=== PATIENT | female | born 1950 | race Caucasian/White ===

== ENCOUNTER 2016-02-25 10:06 | Day surgery (SDC) | payer MEDICARE ==
[2016-02-25] MEDS ORDERED: ceFAZolin 1 GM VIAL ONE (10:10)
[2016-02-25] MEDS ORDERED: LACTATED RINGERS 1,000 ML IV ONE (10:16)
[2016-02-25] MEDS ORDERED: BUPIVACAINE 0.25% PF 30 ML VIAL SUBQ ONE ×2 (11:26)
[2016-02-25] MEDS ORDERED: PROPOFOL 200 MG/20 ML VIAL IVP ONE (11:45)
[2016-02-25] MEDS ORDERED: MIDAZOLAM 2 MG/2 ML VIAL IVP ONE (11:45)
[2016-02-25] MEDS ORDERED: fentaNYL 100 MCG/2 ML VIAL IVP ONE (11:45)
[2016-02-25] MEDS ORDERED: LIDOCAINE-MPF 2% 5 ML VIAL IM ONE (11:45)
== END 2016-02-25 10:07 | disposition home or self-care (01) ==
PROC: 0LN80ZZ Release Left Hand Tendon, Open Approach (ICD-10-PCS; principal; 2016-02-25 11:15)
DX: M65.332 Trigger finger, left middle finger (principal); E66.9 Obesity, unspecified; I10 Essential (primary) hypertension; E78.5 Hyperlipidemia, unspecified; M19.90 Unspecified osteoarthritis, unspecified site; Z88.0 Allergy status to penicillin; Z88.5 Allergy status to narcotic agent; Z68.41 Body mass index [BMI] 40.0-44.9, adult; Z86.73 Personal history of transient ischemic attack (TIA), and cerebral infarction without residual deficits; Z79.82 Long term (current) use of aspirin; Z87.891 Personal history of nicotine dependence; Z68.39 Body mass index [BMI] 39.0-39.9, adult
CPT/HCPCS: 26055; J7120

== ENCOUNTER 2016-07-04 16:31 | Emergency (ER) | payer MEDICARE ==
--- NOTE | 2016-07-04 18:13 | ED Physician Documentation ---
PD HPI ABD PAIN - Stated complaint Stated Complaint: ABD PAIN/VOMITTING - Chief complaint Chief Complaint: Abd Pain - History obtained from History obtained from: Patient - History of Present Illness Timing - onset: Last night Timing - duration: Hours (12-15) Timing - details: Gradual onset, Still present, Waxing and waning Quality: Cramping, Aching, Pain Location: LLQ Radiation: No: Chest, Lower back, Left flank Improved by: No: Eating, Position Worsened by: Palpation. No: Eating, Breathing, Position Associated symptoms: Nausea, Loss of appetite. No: Fever, Vomiting, Diarrhea, Constipation, Melena, Dysuria, Near syncope / syncope Similar symptoms before: Has not had sx before Recently seen: Not recently seen Review of Systems Constitutional: denies: Fever, Chills, Myalgias Nose: denies: Rhinorrhea / runny nose, Congestion Throat: denies: Sore throat Cardiac: denies: Chest pain / pressure, Palpitations Respiratory: denies: Dyspnea, Cough, Wheezing GI: reports: Abdominal Pain, Nausea. denies: Abdominal Swelling, Constipation, Diarrhea : denies: Dysuria, Frequency Skin: denies: Rash, Lesions PD PAST MEDICAL HISTORY - Past Medical History Past Medical History: Yes Cardiovascular: Hypertension, High cholesterol Respiratory: None Neuro: None GI: None : Frequency Psych: Depression Musculoskeletal: Osteoarthritis - Past Surgical History Past Surgical History: Yes General: Appendectomy Ortho: Carpal Tunnel surgery - Present Medications Home Medications: Ambulatory Orders Medication Instructions Recorded Confirmed Lisinopril 5 mg PO DAILY 08/14/12 07/04/16 Lovastatin [Altoprev] 40 mg PO DAILY 08/14/12 07/04/16 Aspirin 81 mg PO DAILY 12/04/15 07/04/16 Docusate Sodium 100 mg PO DAILY #20 capsule 07/04/16 Naproxen [Naprosyn] 500 mg PO BID #15 tablet 07/04/16 Tramadol HCl 50 mg PO Q6H PRN #20 tablet 07/04/16 - Allergies Allergies/Adverse Reactions: Allergies Allergy/AdvReac Type Severity Reaction Status Date / Time morphine Allergy Intermediate Hives Verified 07/04/16 19:43 Penicillins Allergy Intermediate Rash Verified 07/04/16 19:43 hydrocodone [Hydrocodone] Allergy Mild Itching Verified 07/04/16 19:43 - Social History Does the pt smoke?: No Smoking Status: Current some day smoker Does the pt drink ETOH?: No Does the pt have substance abuse?: No - Family History Family history: reports: Non contributory - Immunizations Immunizations are current?: Yes - POLST Patient has POLST: No PD ED PE NORMAL - Vitals Vital signs reviewed: Yes - General General: Alert and oriented X 3, Well developed/nourished, Other (appears in pain, left abdomen) - HEENT HEENT: PERRL (nonicteric), Ears normal, Pharynx benign - Neck Neck: Supple, no meningeal sign, No bony TTP - Cardiac Cardiac: RRR, No murmur - Respiratory Respiratory: Clear bilaterally - Abdomen Abdomen: Soft, Non distended, No organomegaly, Other (tender with local guarding left sided mid abdomen. No percussion nor rebound tenderness. ) - Female Female : Deferred - Rectal Rectal: Deferred - Back Back: No CVA TTP - Derm Derm: Normal color, Warm and dry - Extremities Extremities: No tenderness to palpate, Normal ROM s pain, No edema, No calf tenderness / cord - Neuro Neuro: Alert and oriented X 3, No motor deficit, Normal speech Results - Vitals Vitals: Vital Signs - 24 hr 07/04/16 07/04/16 07/04/16 16:36 19:10 19:20 Temperature 35.7 C L 36.6 C Heart Rate 75 87 79 Respiratory 16 20 16 Rate Blood Pressure 189/91 H O2 Saturation 98 89 L 97 07/04/16 07/04/16 07/04/16 20:12 20:49 22:16 Temperature Heart Rate 77 89 75 Respiratory 0 L 16 16 Rate Blood Pressure 129/85 H 137/79 H 124/74 O2 Saturation 98 94 97 Oxygen O2 Source [Without Activity] Room air O2 Source Room air Oxygen Flow Rate 2 - Labs Labs: Laboratory Tests 07/04/16 07/04/16 07/04/16 19:00 19:20 20:00 WBC 9.2 RBC 4.63 Hgb 13.7 Hct 40.2 MCV 87.0 MCH 29.6 MCHC 34.0 RDW 15.1 H Plt Count 228 MPV 8.8 Neut # 7.8 H Lymph # 1.2 L [place] # 0.2 Eos # 0.0 Baso # 0.0 Absolute Nucleated RBC 0.00 Nucleated RBCs 0.0 Sodium 144 Potassium 3.4 L Chloride 108 Carbon Dioxide 26 Anion Gap 10.0 BUN 15 Creatinine 0.4 Estimated GFR (MDRD) 160 Glucose 149 H Calcium 9.3 Total Bilirubin 0.9 AST 18 ALT 33 Alkaline Phosphatase 65 Total Protein 7.4 Albumin 4.3 Globulin 3.1 Albumin/Globulin Ratio 1.4 Lipase 17 L Urine Color YELLOW Urine Clarity CLEAR Urine pH 6.0 Ur Specific [place] >=1.030 H Urine Protein 100 H Urine Glucose (UA) NEGATIVE Urine Ketones >=80 H Urine Occult Blood NEGATIVE Urine Nitrite NEGATIVE Urine Bilirubin NEGATIVE Urine Urobilinogen 0.2 (NORMAL) Ur Leukocyte Esterase NEGATIVE Urine RBC 0-5 Urine WBC 0-3 Ur Squamous Epith Cells MOD Squamous H Urine Bacteria Rare Urine Mucus Moderate Strands Ur Microscopic Review INDICATED Urine Culture Comments NOT INDICATED - Rads (name of study) abd CT Radiology: Prelim report reviewed (no stones. some perinephric stranding similar to prior. diverticula without itis. ) PD MEDICAL DECISION MAKING - ED course Complexity details: reviewed results (no obvious cause for the pain. No UTI nor stones. She does have diverticula, so consider early diverticulitis with false negative CT. Would give NSAIDs as likely not infectious yet. Watch degree of symptoms.), re-evaluated patient (improved with fluids and meds. ), considered differential (consider kidney stone, pyelo, diverticulitis. ), d/w patient Departure - Departure Disposition: 01 Home, Self Care Clinical Impression: Abdominal pain Qualifiers: Abdominal location: left upper quadrant Qualified Code(s): R10.12 - Left upper quadrant pain Condition: Stable Record reviewed to determine appropriate education?: Yes Instructions: ED Abdominal Pain Unkn Cause Prescriptions: Docusate Sodium 100 mg PO DAILY #20 capsule Naproxen [Naprosyn] 500 mg PO BID #15 tablet Tramadol HCl 50 mg PO Q6H PRN #20 tablet PRN Reason: Pain Comments: Drink lots of fluids. Naproxen or Ibuprofen twice daily for a week or so. Stool softener daily for a week. Pain meds if needed. Recheck if not improved over the next few days. There could be early inflammation of a diverticula causing the pain, versus something not well declared yet. Discharge Date/Time: 07/04/16 22:25
[2016-07-04] MEDS ORDERED: ONDANSETRON 4 MG/2 ML VIAL IVP STA (18:41)
[2016-07-04] MEDS ORDERED: SODIUM CHLORIDE 0.9% 1,000 ML IV ONE ×2 (18:41→19:06)
[2016-07-04] MEDS ORDERED: HYDROmorphone 1 MG/ML SYRINGE IVP STA (18:41)
[2016-07-04] MEDS ORDERED: HYDROmorphone 1 MG/ML SYRINGE ONE (19:06)
[2016-07-04] MEDS ORDERED: ONDANSETRON 4 MG/2 ML VIAL ONE (19:06)
[2016-07-04 19:33] LABS: BASOPHILS % (AUTO) 0.2 %; HCT - HEMATOCRIT 40.2 % (37.0-47.0); HGB - HEMOGLOBIN 13.7 g/dL (12.0-16.0); LYMPHOCYTES # (AUTO) 1.2 10^3/uL (1.5-3.5); MEAN CORPUSCULAR HEMOGLOBIN 29.6 pg (27.0-31.0); MEAN PLATELET VOLUME 8.8 fL (7.9-10.8); MONOCYTES # (AUTO) 0.2 10^3/uL (0.0-1.0); MONOCYTES % (AUTO) 1.9 %; NEUTROPHILS # (AUTO) 7.8 10^3/uL (1.5-6.6); NEUTROPHILS % (AUTO) 84.9 %; RED BLOOD COUNT 4.63 10^6/uL (4.20-5.40); RED CELL DISTRIBUTION WIDTH 15.1 % (12.0-15.0); UNCORRECTED WHITE BLOOD COUNT 9.2 x10^3/uL; WHITE BLOOD COUNT 9.2 x10^3/uL (4.8-10.8)
[2016-07-04 19:43] LABS: BILIRUBIN,URINE NEGATIVE (NEGATIVE)
[2016-07-04 19:54] LABS: UA w/ MICROSCOPIC CHARGE YES
[2016-07-04 20:14] LABS: UR CULTURE IF IND NOT INDICATED; WBC,URINE 0-3 /HPF (0-5)
[2016-07-04 20:19] LABS: ALBUMIN/GLOBULIN RATIO 1.4 (1.0-2.2); BILIRUBIN,TOTAL 0.9 mg/dL (0.2-1.0); CALCIUM 9.3 mg/dL (8.5-10.3); CREATININE 0.4 mg/dL (0.4-1.0); POTASSIUM 3.4 mmol/L (3.5-5.0); TOTAL PROTEIN 7.4 g/dL (6.7-8.2)
[2016-07-04] MEDS ORDERED: IOPAMIDOL-300 100 ML VIAL IVP ONE (20:37)
--- NOTE | 2016-07-04 21:22 | CT Preliminary Report ---
Exam: CT Abdomen/Pelvis W/ IMPRESSION: 1. There is distal colon diverticulosis without CT evidence of diverticulitis. 2. There is mild bilateral perinephric stranding. This is stable. 3. There is hepatic steatosis. 4. No focal findings to clearly account for the patient's presentation. [facility] SITE ID: [id number]
--- NOTE | 2016-07-04 21:24 | CT Report ---
EXAM: CT ABDOMEN AND PELVIS EXAM DATE: 07/04/2016 08:39 PM. CLINICAL HISTORY: Left sided abdominal pain COMPARISONS: 09/18/2013. TECHNIQUE: Routine helical CT imaging was performed through the abdomen and pelvis. IV contrast: 100 cc Isovue-300. Enteric contrast: No. Reconstructions: Coronal and sagittal. In accordance with CT protocol optimization, one or more of the following dose reduction techniques w ere utilized for this exam: automated exposure control, adjustment of mA and/or KV based on patient s ize, or use of iterative reconstructive technique. FINDINGS: Lung Bases: Unremarkable. Liver: There is hepatic steatosis. No focal hepatic lesions are seen. Gallbladder/Bile Ducts: Unremarkable. Spleen: Normal. Pancreas: Normal. Adrenal Glands: Normal. Kidneys: There is mild bilateral perinephric stranding. No stones or hydronephrosis. Peritoneal Cavity/Bowel: Stomach and small bowel demonstrate no acute abnormalities. The transverse a nd left colon are decompressed. There is distal colon diverticulosis. No intraperitoneal free air or free fluid. No enlarged mesenteric or retroperitoneal lymph nodes. The appendix is not seen. No evide nce of pericecal inflammatory stranding. Pelvic Organs: Normal. The bladder and visualized pelvic organs are within normal limits. Vasculature: There are atheromatous calcifications of the aorta. No acute vascular abnormalities are seen. Bones: No significant abnormality. Other: There is a left gluteal lipoma. IMPRESSION: 1. There is distal colon diverticulosis without CT evidence of diverticulitis. 2. There is mild bilateral perinephric stranding. This is stable. 3. There is hepatic steatosis. 4. No focal findings to clearly account for the patient's presentation. [facility] Referring Provider Line: [phone] SITE ID: [id number]
[2016-07-04 22:17] VITALS: BP 124/74
[2016-07-04] MEDS ORDERED: oxyCODONE/ACET 5/325 Prepack 4 PO STA (22:31)
== END 2016-07-04 22:25 | disposition home or self-care (01) ==
LOC: ED 16:31
DX: R10.12 Left upper quadrant pain (principal); I10 Essential (primary) hypertension; E78.00 Pure hypercholesterolemia, unspecified; M19.90 Unspecified osteoarthritis, unspecified site; Z79.82 Long term (current) use of aspirin; F17.200 Nicotine dependence, unspecified, uncomplicated
CPT/HCPCS: 36415; 74177; 80053; 81001; 83690; 85025; 96361; 96374; 96375; 99284; J1170; Q9967; 81003; 87086

== ENCOUNTER 2016-07-05 22:00 | Emergency (ER) | payer MEDICARE ==
[2016-07-05] MEDS ORDERED: SODIUM CHLORIDE 0.9% 1,000 ML IV ONE ×2 (22:33)
[2016-07-05] MEDS ORDERED: ONDANSETRON 4 MG/2 ML VIAL IVP STA (23:04)
[2016-07-05] MEDS ORDERED: MAG HYDROX/AL HYDROX/SIMETH 30 ML UDC PO STA (23:04)
[2016-07-05] MEDS ORDERED: SUCRALFATE 1 GM/10 ML UDC PO STA (23:04)
[2016-07-05] MEDS ORDERED: HYDROmorphone 1 MG/ML SYRINGE IVP STA (23:04)
[2016-07-05] MEDS ORDERED: PANTOPRAZOLE 40 MG VIAL IVP STA (23:04)
[2016-07-05] MEDS ORDERED: LIDOCAINE VISCOUS 2% 15 ML UDC MM STA (23:04)
[2016-07-05] MEDS ORDERED: FAMOTIDINE 20 MG TABLET PO STA (23:04)
[2016-07-05] MEDS ORDERED: PHENobarb/HYOSCY/ATROPINE/SCOP 5 ML SYRINGE PO STA (23:05)
--- NOTE | 2016-07-05 23:06 | ED Physician Documentation ---
PD HPI ABD PAIN - Stated complaint Stated Complaint: ABD PAIN - Chief complaint Chief Complaint: Abd Pain - History obtained from History obtained from: Patient, Family - History of Present Illness Timing - onset: Yesterday Timing - duration: Days (2) Timing - details: Intermittant Pain level max: 8 Pain level now: 8 Quality: Aching, Pain, Other (burning) Location: Epigastric, LUQ Radiation: Other (non-radiating) Improved by: Meds (states dilaudid helped last night) Worsened by: Eating (Pain returned after eating today) Associated symptoms: Nausea. No: Fever, Vomiting, Hematemesis, Diarrhea, Constipation, Melena, Hematochezia, Dysuria, Hematuria Similar symptoms before: Diagnosis (abd pain, unk cause) Recently seen: Emergency Dept (last night for same. Normal blood work. Normal CT.) Review of Systems Constitutional: denies: Fever, Chills Cardiac: denies: Chest pain / pressure Respiratory: denies: Cough GI: denies: Vomiting, Diarrhea, Hematemesis, Bloody / black stool Skin: denies: Rash Musculoskeletal: denies: Neck pain, Back pain Neurologic: denies: Headache PD PAST MEDICAL HISTORY - Past Medical History Cardiovascular: Hypertension, High cholesterol Respiratory: None Neuro: None GI: None : Frequency Psych: Depression Musculoskeletal: Osteoarthritis - Past Surgical History Past Surgical History: Yes General: Appendectomy Ortho: Carpal Tunnel surgery - Present Medications Home Medications: Ambulatory Orders Medication Instructions Recorded Confirmed Lisinopril 5 mg PO DAILY 08/14/12 07/04/16 Lovastatin [Altoprev] 40 mg PO DAILY 08/14/12 07/04/16 Aspirin 81 mg PO DAILY 12/04/15 07/04/16 Docusate Sodium 100 mg PO DAILY #20 capsule 07/04/16 Naproxen [Naprosyn] 500 mg PO BID #15 tablet 07/04/16 Tramadol HCl 50 mg PO Q6H PRN #20 tablet 07/04/16 Omeprazole [PriLOSEC] 20 mg PO DAILY #30 capsule 07/05/16 Sucralfate [Carafate] 1 gm PO ACHS #60 tablet 07/05/16 - Allergies Allergies/Adverse Reactions: Allergies Allergy/AdvReac Type Severity Reaction Status Date / Time morphine Allergy Intermediate Hives Verified 07/04/16 19:43 Penicillins Allergy Intermediate Rash Verified 07/04/16 19:43 hydrocodone [Hydrocodone] Allergy Mild Itching Verified 07/04/16 19:43 - Social History Does the pt smoke?: No Smoking Status: Current some day smoker Does the pt drink ETOH?: No Does the pt have substance abuse?: No - Immunizations Immunizations are current?: Yes - POLST Patient has POLST: No PD ED PE NORMAL - Vitals Vital signs reviewed: Yes - General General: Alert and oriented X 3, No acute distress - HEENT HEENT: Moist mucous membranes - Neck Neck: Supple, no meningeal sign - Cardiac Cardiac: RRR - Respiratory Respiratory: No respiratory distress, Clear bilaterally - Abdomen Abdomen: Soft, Non distended, Other (Mild tender to palpation epigastric without peritoneal signs. No right upper quadrant tenderness. Negative Charles) - Back Back: No CVA TTP, No spinal TTP - Derm Derm: Warm and dry - Neuro Neuro: Alert and oriented X 3 - Psych Psych: Normal mood, Normal affect Results - Vitals Vitals: Vital Signs - 24 hr 07/05/16 07/06/16 22:04 00:08 Temperature 36.2 C L Heart Rate 73 72 Respiratory 18 16 Rate Blood Pressure 165/94 H 150/80 H O2 Saturation 99 96 Oxygen O2 Source [Without Activity] Room air O2 Source Room air - Labs Labs: Laboratory Tests 07/05/16 07/05/16 23:00 23:00 WBC 10.6 RBC 4.40 Hgb 13.0 Hct 38.2 MCV 86.9 MCH 29.5 MCHC 33.9 RDW 14.8 Plt Count 226 MPV 8.7 Neut # 8.6 H Lymph # 1.6 [place] # 0.3 Eos # 0.0 Baso # 0.1 Absolute Nucleated RBC 0.00 Nucleated RBCs 0.0 Sodium 143 Potassium 3.3 L Chloride 106 Carbon Dioxide 28 Anion Gap 9.0 BUN 21 H Creatinine 0.7 Estimated GFR (MDRD) 84 L Glucose 170 H Calcium 9.6 Total Bilirubin 0.7 AST 31 ALT 44 Alkaline Phosphatase 66 Total Protein 7.9 Albumin 4.8 Globulin 3.1 Albumin/Globulin Ratio 1.5 Lipase 19 L PD MEDICAL DECISION MAKING - ED course Complexity details: reviewed old records, reviewed results, re-evaluated patient , considered differential, d/w patient, d/w family ED course: Patient presents to the emergency department with what appears to be acute gastritis. Feels better after GI cocktail. Tolerating p.o. without difficulty. Nausea improved. Given Protonix IV here. Had a normal CT yesterday. No acute laboratory findings that would suggest alternate diagnosis at this time. Will place on a PPI and Carafate for home and follow-up with her doctor. Counseled regarding dietary changes. Patient counseled regarding signs and symptoms for which I believe and urgent re-evaluation would be necessary. Patient with good understanding of and agreement to plan and is comfortable going home at this time This document was made in part using voice recognition software. While efforts are made to proofread this document, sound alike and grammatical errors may occur. Departure - Departure Disposition: Home, Self Care Clinical Impression: Gastritis Qualifiers: Gastritis type: unspecified gastritis Chronicity: acute Gastritis bleeding: without bleeding Qualified Code(s): K29.00 - Acute gastritis without bleeding Condition: Good Instructions: ED PUD Vs Gastritis Follow-Up: Laurence Guaman ARNP [Primary Care Provider] - Within 1 week Prescriptions: Sucralfate [Carafate] 1 gm PO ACHS #60 tablet Omeprazole [PriLOSEC] 20 mg PO DAILY #30 capsule Comments: You appear to have irritation to the stomach lining that is causing your symptoms. Continue the prescribed medications at home. You should avoid anti- inflammatory medications, such as Motrin, Aleve. You should also avoid fried foods, spicy foods, caffeine, alcohol, smoking. These all may worsen your symptoms. Return if you worsen. You would likely benefit from an endoscopy and your doctor can arrange this for you. Discharge Date/Time: 07/06/16 00:11
[2016-07-05 23:10] LABS: BASOPHILS # (AUTO) 0.1 10^3/uL (0.0-0.1); BASOPHILS % (AUTO) 0.6 %; EOSINOPHILS % (AUTO) 0.1 %; HCT - HEMATOCRIT 38.2 % (37.0-47.0); LYMPHOCYTES # (AUTO) 1.6 10^3/uL (1.5-3.5); LYMPHOCYTES % (AUTO) 15.2 %; MEAN CORPUSCULAR HEMOGLOBIN 29.5 pg (27.0-31.0); MEAN CORPUSCULAR HGB CONC 33.9 g/dL (32.0-36.0); MEAN CORPUSCULAR VOLUME 86.9 fL (81.0-99.0); MEAN PLATELET VOLUME 8.7 fL (7.9-10.8); MONOCYTES # (AUTO) 0.3 10^3/uL (0.0-1.0); NEUTROPHILS # (AUTO) 8.6 10^3/uL (1.5-6.6); NEUTROPHILS % (AUTO) 81.1 %; RED CELL DISTRIBUTION WIDTH 14.8 % (12.0-15.0); UNCORRECTED WHITE BLOOD COUNT 10.6 x10^3/uL; WHITE BLOOD COUNT 10.6 x10^3/uL (4.8-10.8)
[2016-07-05] MEDS ORDERED: LIDOCAINE VISCOUS 2% 15 ML UDC MM ONE (23:17)
[2016-07-05] MEDS ORDERED: PANTOPRAZOLE 40 MG VIAL ONE (23:17)
[2016-07-05] MEDS ORDERED: PHENobarb/HYOSCY/ATROPINE/SCOP 5 ML SYRINGE PO ONE (23:17)
[2016-07-05] MEDS ORDERED: FAMOTIDINE 20 MG TABLET ONE (23:17)
[2016-07-05] MEDS ORDERED: HYDROmorphone 1 MG/ML SYRINGE ONE (23:17)
[2016-07-05] MEDS ORDERED: ONDANSETRON 4 MG/2 ML VIAL ONE (23:18)
[2016-07-05] MEDS ORDERED: MAG HYDROX/AL HYDROX/SIMETH 30 ML UDC ONE (23:18)
[2016-07-05 23:21] LABS: ALBUMIN/GLOBULIN RATIO 1.5 (1.0-2.2); BILIRUBIN,TOTAL 0.7 mg/dL (0.2-1.0); CALCIUM 9.6 mg/dL (8.5-10.3); CREATININE 0.7 mg/dL (0.4-1.0); POTASSIUM 3.3 mmol/L (3.5-5.0); TOTAL PROTEIN 7.9 g/dL (6.7-8.2)
[2016-07-05] MEDS ORDERED: SUCRALFATE 1 GM/10 ML UDC ONE (23:30)
[2016-07-06 00:09] VITALS: BP 150/80
== END 2016-07-06 00:11 | disposition home or self-care (01) ==
LOC: ED 22:00
DX: K29.00 Acute gastritis without bleeding (principal); I10 Essential (primary) hypertension
CPT/HCPCS: 36415; 80053; 83690; 85025; 96361; 96374; 96375; 99283; 99284; A9270; J1170

== ENCOUNTER 2016-07-21 08:00 | Outpatient (CLI) | payer MEDICARE ==
[2016-07-21 11:33] LABS: ALBUMIN/GLOBULIN RATIO 1.3 (1.0-2.2); BILIRUBIN,TOTAL 1.1 mg/dL (0.2-1.0); BUN - BLOOD UREA NITROGEN 16 mg/dL (6-20); CALCIUM 9.2 mg/dL (8.5-10.3); CARBON DIOXIDE - CO2 26 mmol/L (21-32); CHLORIDE 104 mmol/L (101-111); CHOL/HDL RATIO 3.4 (<4.4); CHOLESTEROL 131 mg/dL; CREATININE 0.5 mg/dL (0.4-1.0); GFR - MDRD 124 (>89); GLUCOSE 129 mg/dL (70-100); HDL CHOLESTEROL 38 mg/dL; LDL/HDL RATIO 1.8 (<4.4); POTASSIUM 3.8 mmol/L (3.5-5.0); SODIUM 140 mmol/L (135-145); TOTAL PROTEIN 7.1 g/dL (6.7-8.2); TRIGLYCERIDES 122 mg/dL; VLDL CHOLESTEROL 24 mg/dL
[2016-07-21 11:34] LABS: HEMOGLOBIN A1C 0.49 g/dL
== END 2016-07-21 08:01 | disposition home or self-care (01) ==
LOC: LAB.F 08:00
PROVIDERS: ATTEND Nurse Practitioner Family
DX: E78.5 Hyperlipidemia, unspecified (principal); R73.01 Impaired fasting glucose; Z86.79 Personal history of other diseases of the circulatory system; R03.0 Elevated blood-pressure reading, without diagnosis of hypertension; R53.83 Other fatigue
CPT/HCPCS: 36415; 80053; 80061; 83036; 84443

== ENCOUNTER 2017-02-21 07:43 | Inpatient (IN) | payer MEDICARE ==
--- NOTE | 2017-02-21 08:13 | ED Physician Documentation ---
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) to ER today with vision changes states she has been ill for several days with NV and abd cramping after eating sushi and spicy foods this AM awoke with no neuro sx was watching TV at 6 AM and first noted colored flashing lights in her L visual field and then had a left visual field loss - carefully questioned pt several diff ways and she is describing that she could see out of each eye but when she looked in the mirror she could not see the left side of her face and on the way here she could not see the stoplight on the left that seems to be improving and now she can see left of midline though it is a bit hazy she also is noting helene flashing colored lights now no abn speech, no hearing loss, no numbness or weakness her prior CVA was after GI illness as well Review of Systems Constitutional: denies: Fever, Chills Eyes: reports: Loss of vision Throat: denies: Sore throat Cardiac: denies: Chest pain / pressure Respiratory: denies: Dyspnea GI: reports: Abdominal Pain, Nausea, Vomiting Neurologic: denies: Generalized weakness, Focal weakness, Headache Endocrine: denies: Easy bruising / bleeding Immunocompromised: denies: Immunocompromised PD PAST MEDICAL HISTORY - Past Medical History Past Medical History: Yes Cardiovascular: Hypertension, High cholesterol Respiratory: None Neuro: None GI: None : Frequency Psych: Depression Musculoskeletal: Osteoarthritis - Past Surgical History Past Surgical History: Yes General: Appendectomy Ortho: Carpal Tunnel surgery - Present Medications Home Medications: Ambulatory Orders Medication Instructions Recorded Confirmed Lisinopril 10 mg PO DAILY 08/14/12 02/21/17 Aspirin 81 mg PO Q2D 12/04/15 02/21/17 Atorvastatin [Lipitor] 40 mg PO QPM 02/21/17 02/21/17 Sertraline [Zoloft] 50 mg PO DAILY 02/21/17 02/21/17 - Allergies Allergies/Adverse Reactions: Allergies Allergy/AdvReac Type Severity Reaction Status Date / Time morphine Allergy Intermediate Hives Verified 07/04/16 19:43 Penicillins Allergy Intermediate Rash Verified 07/04/16 19:43 hydrocodone [Hydrocodone] Allergy Mild Itching Verified 07/04/16 19:43 - Social History Does the pt smoke?: No Smoking Status: Never smoker Does the pt drink ETOH?: No Does the pt have substance abuse?: No - Immunizations Immunizations are current?: Yes - POLST Patient has POLST: No PD ED PE NORMAL - Vitals Vital signs reviewed: Yes - General General: Alert and oriented X 3 - HEENT HEENT: PERRL, EOMI, Other (pupils 2 helene, EMOI, unable to visualize fundi 2/2 pupil size, globes soft, no TA TP no proptosis, pt with "hazy" vision L visiual field > R out of both eyes, alos reporting colored flashers in all visual gutierrez out of each eye) - Neck Neck: Supple, no meningeal sign - Cardiac Cardiac: RRR - Respiratory Respiratory: No respiratory distress, Clear bilaterally - Abdomen Abdomen: Soft, Non tender - Derm Derm: Normal color - Extremities Extremities: No deformity - Neuro Neuro: Alert and oriented X 3, No motor deficit, No sensory deficit, Normal speech. No: emt basic 2-12 intact (see eye exam) Results - Vitals Vitals: Vital Signs - 24 hr 02/21/17 02/21/17 02/21/17 07:48 09:06 12:44 Temperature 37.2 C 36.7 C Heart Rate 78 72 82 Respiratory 16 16 18 Rate Blood Pressure 177/86 H 177/94 H 155/94 H O2 Saturation 98 98 96 Oxygen O2 Source [Without Activity] Room air O2 Source Room air - EKG (time done) 0810 Rate: Rate (enter#) (72) Rhythm: NSR (72) [place]: Normal Intervals: Normal MD, Prolonged QT (borderline less than 1/2 R-R) - Labs Labs: Laboratory Tests 02/21/17 02/21/17 02/21/17 07:50 08:06 08:24 WBC 13.4 H RBC 5.00 Hgb 14.3 Hct 44.4 MCV 88.8 MCH 28.7 MCHC 32.3 RDW 14.8 Plt Count 256 MPV 8.6 Neut # 10.2 H Lymph # 2.5 [place] # 0.6 Eos # 0.0 Baso # 0.1 Absolute Nucleated RBC 0.01 Nucleated RBC % 0.1 PT 12.5 INR 1.1 Sodium 138 Potassium 3.5 Chloride 100 L Carbon Dioxide 26 Anion Gap 12.0 BUN 22 H Creatinine 0.5 Estimated GFR (MDRD) 123 Glucose 152 H Calcium 9.9 Total Bilirubin 0.6 AST 21 ALT 23 Alkaline Phosphatase 68 Total Protein 8.0 Albumin 4.6 Globulin 3.4 Albumin/Globulin Ratio 1.4 Lipase 12 L - Rads (name of study) CTH Radiology: See rad report (no acute) MRI brain Radiology: See rad report (no acute process but new dramatic and unusual white matter dz more so in R occpital pole and also cerebellum - possible ddx would include encephalopathy, paraneoplastic syndrome, 2/2 hypertension acute disseminated encaphalopathy, PRESS, possible tumor (could get post con MRI), post infectious process felt unlikely - but not just small vessel dz - no perfusion restrictions) MRA neck Radiology: See rad report (right prox ICA 50% ICA stenosis and possible external carotid stenosis recommend carotid doppler) PD MEDICAL DECISION MAKING - ED course ED course: pt present approx 2 hr into sx but sx are improved from earlier with the flashers not clearly of central etiology - but then again vitreous hem or retinal tear unlikely to occur in both eyes simultaneously do not think TPA is appropriate in this pt because 1) sx are improving and 2) not clear this is a CVA will do neuro work up which will need MRI if CT neg as CT may not well vis posterior brain if all neuro eval is fine, will need a dilated exam by ophtho to eval for retinal tear (though that would be very unusual to happen simul in both eyes) MRA brain no stenosis aneurysm AVM MRA neck possible R IC and EC stenosis rec carotid doppler MRI brain extremely abn with diffuse white matter dz with an extensive ddx consulted Dr Burden at [facility] who reviewed images and feel pt sx and MRI are most c/w PRES and that there is edema in the right occipital lobe likely explaining pt L field deficit - recommends pt be admitted to [facility] for rest of TIA wup (doppler echo etc) as well as BP management (he rec BBlocker, hydralazine, nicardipine, inc DEBORAH etc) with the end pt goal being BP under 140/ 90 on oral meds only and sx resolution, then he rec that MRI be repeated in 4-6 weeks to document resolution and confirm dx of PRESS - he is available for any further questions if sx do not resolve or new concerns arise spoke to hospitalist Dr James at 1510 Departure - Departure Disposition: 66 [facility] DC/Xfer Clinical Impression: Visual field cut, Posterior reversible encephalopathy syndrome (PRES) Condition: Fair Discharge Date/Time: 02/21/17 17:04 NIHSS - Time Time: 08:05 - Level of Consciousness Level of consciousness: (0) Alert, Keenly responsive LOC Questions: (0) Answers both Q's correct LOC Commands: (0) Performs both correctly - Gaze Best Gaze: (0) Normal - Visual Visual: (1) Partial hemianopia - Facial Palsy Facial Palsy: (0) Normal, symmetrical movement - Motor Arms (both separate) Motor Arm (right): (0) No drift Motor Arm (left): (0) No drift - Motor Legs (both separate) Motor Leg (right): (0) No drift Motor Leg (left): (0) No drift - Limb Ataxia Limb Ataxia: (0) Absent - Sensory Sensory: (0) Normal - Best Language Best Language: (0) No aphasia - Dysarthria Dysarthria: (0) Normal - Extinction and Inattention (formally neg Extinction and inattention: (0) No abnormality - Total Score/Results Total Score/Result: 1
[2017-02-21 08:16] LABS: BASOPHILS # (AUTO) 0.1 10^3/uL (0.0-0.1); BASOPHILS % (AUTO) 0.8 %; HGB - HEMOGLOBIN 14.3 g/dL (12.0-16.0); LYMPHOCYTES # (AUTO) 2.5 10^3/uL (1.5-3.5); LYMPHOCYTES % (AUTO) 18.6 %; MEAN CORPUSCULAR HEMOGLOBIN 28.7 pg (27.0-31.0); MEAN CORPUSCULAR HGB CONC 32.3 g/dL (32.0-36.0); MEAN CORPUSCULAR VOLUME 88.8 fL (81.0-99.0); MEAN PLATELET VOLUME 8.6 fL (7.9-10.8); MONOCYTES # (AUTO) 0.6 10^3/uL (0.0-1.0); MONOCYTES % (AUTO) 4.8 %; NEUTROPHILS # (AUTO) 10.2 10^3/uL (1.5-6.6); NEUTROPHILS % (AUTO) 75.8 %; PLT - PLATELET COUNT 256 10^3/uL (130-450); RED CELL DISTRIBUTION WIDTH 14.8 % (12.0-15.0); WHITE BLOOD COUNT 13.4 x10^3/uL (4.8-10.8)
[2017-02-21 08:25] LABS: ALBUMIN 4.6 g/dL (3.2-5.5); ALBUMIN/GLOBULIN RATIO 1.4 (1.0-2.2); BILIRUBIN,TOTAL 0.6 mg/dL (0.2-1.0); CALCIUM 9.9 mg/dL (8.5-10.3); CREATININE 0.5 mg/dL (0.4-1.0)
[2017-02-21 08:38] LABS: INR 1.1 (0.8-1.2); PT - PROTHROMBIN TIME 12.5 secs (9.9-12.6)
--- NOTE | 2017-02-21 08:59 | CT Report ---
EXAM: CT HEAD WITHOUT CONTRAST EXAM DATE: 02/21/2017 08:40 AM. CLINICAL HISTORY: 66-year-old female with left-sided visual field loss. COMPARISON: Similar study of 09/18/2013. TECHNIQUE: Multiaxial CT images were obtained from the foramen magnum to the vertex on an emergent ba sis. Reformats: Coronal. IV contrast: None. In accordance with CT protocol optimization, one or more of the following dose reduction techniques w ere utilized for this exam: automated exposure control, adjustment of mA and/or KV based on patient s ize, or use of iterative reconstructive technique. FINDINGS: Parenchyma: No intraparenchymal hemorrhage. No evidence of mass, midline shift, or CT findings of inf arction. Vazquez-white differentiation is distinct. Extraaxial Spaces: Normal for age. No subdural or epidural collections identified. Ventricles: Normal in size and position. Sinuses and Orbits: Imaged paranasal sinuses, orbits, and mastoids show no significant abnormality. I nterval clearing of opacification of the right maxillary sinus. Bones: No evidence of fracture or calvarial defect. Other: None. IMPRESSION: Normal head CT. No mass, CVA or other demonstrated cause for the patient's symptoms. [facility] Referring Provider Line: [phone] SITE ID: [id number]
[2017-02-21] MEDS ORDERED: LORazepam 2 MG/ML VIAL IVP STA (10:50)
[2017-02-21] MEDS ORDERED: GADOBUTROL 10 MMOL/10 ML VIAL ONE (11:39)
[2017-02-21] MEDS ORDERED: GADOBUTROL 10 MMOL/10 ML VIAL IVP ONE (12:30)
--- NOTE | 2017-02-21 13:18 | MRI Report ---
EXAMS: MRI BRAIN WITHOUT CONTRAST. MRA BRAIN WITHOUT CONTRAST. EXAM DATE: 02/21/2017 12:25 PM. CLINICAL HISTORY: Left visual field deficit. History of prior stroke. COMPARISON: Prior CT head 02/21/2017 at 0838 hours, prior MRI of brain 09/19/2013. TECHNIQUE: MRI: Multiplanar, multisequence T1-weighted and fluid-sensitive MRI sequences of the brain were performed. Sequences optimized for routine evaluation. Other: None. Post-processing: None. IV C ontrast: None. MRA: Multiplanar, multisequence T1-weighted and fluid-sensitive MRA sequences of the brain were perfo rmed. Other: None. Post-processing: Multiplanar 3D MIP reconstructions. IV Contrast: None. Findings: Relevant images are indicated (image number, series number). There is no acute or subacute ischemic change in the brain. Gradient echo imaging demonstrates no sig nificant hemosiderin deposition in the brain. There is no interval hemorrhage, mass or midline shift. Basal cisterns, bilateral IACs, bilateral Meckel's caves are clear. Orbital contents negative. Minim al right maxillary sinus mucosal thickening. Paranasal sinuses, mastoid air cells are otherwise unrem arkable. There is an unusual presentation of white matter disease abutting bilateral juxtacortical parietal, p recuneus, cutaneous with multifocal dense white matter disease within the cerebellum. Bilateral occip ital poles demonstrate white matter disease right greater than left, again juxtacortical. There is al so asymmetrical white matter disease bilateral thalami posteriorly, left greater than right. Superimp osed mild scattered periventricular white matter disease resident. There is also bilateral juxtacorti radhames white matter disease superior middle frontal gyrus right greater than left. White matter disease involves the bilateral parietal cortex including motor, to a lesser extent some minimal somatosensory cortex. Pituitary, infundibulum, mid range might cranial cervical junction, limited evaluation upper cervical or negative. Extraocular muscles, optic nerves, orbital apex, optic chiasm negative. MR angiogram brain: Left ICA: Widely patent including the MCA, AURELIO distribution. Right ICA: Widely patent including the MCA, AURELIO distribution. Posterior circulation: Patent distal bilateral vertebral arteries, basilar artery, patent bilateral P CA distribution. There is a prominent right posterior communicating artery. Impressions: Compared with MRI brain 09/19/2013: MRI brain: 1. No acute or subacute ischemic change in the brain. 2. Interval development of an unusual nearly symmetric bilateral white matter disease involving bilat eral cerebellum, with supratentorial primarily juxtacortical scattered white matter disease bifrontal , biparietal amount of bilateral occipital as described including likely involvement lateral thalami. Differential diagnosis suggest hypertensive encephalopathy, other considerations include manifestati on of paraneoplastic syndrome, metabolic encephalopathy such as hypo-or hyperglycemic state, less lik prateek an infectious myelitis. Correlate closely with the neurological exam findings and clinical histor y. Consider short interval follow-up imaging based upon the clinical condition, neurological exam fin dings, also consider follow-up postcontrast imaging if symptoms persist and/or worsen. MRA brain: 1. Patent major arteries of the brain, with normal anatomical variability as described. No aneurysm, dissection, stenosis, AVM. Critical results: Findings discussed immediately with Dr. Spencer by phone on 02/21/2017 at 1309 hrs. [facility] Referring Provider Line: [phone] SITE ID: [id number]
--- NOTE | 2017-02-21 14:15 | MRI Report ---
EXAM: MR ANGIOGRAM NECK EXAM DATE: 02/21/2017 12:42 PM. CLINICAL HISTORY: Left visual field deficit. COMPARISON: Accompanying MRI brain, MR angiogram brain. TECHNIQUE: Multiplanar, multisequence MRA sequences of the neck were performed. Other: None. Post-pro cessing: Multiplanar 3D MIP reconstructions. IV Contrast: 10 cc Gadavist. Evaluation of arterial renee nosis is based on a NASCET method of measurement. Findings: Relevant images are indicated (image number, series number). Aortic arch: Widely patent, bovine configuration of the great vessels. Left carotid artery: Widely patent. Right carotid artery: Patent to the carotid bulb, at least 50% short segment stenosis proximal ICA, o therwise patent. Likely significant stenosis of the origin of the external carotid artery. Left vertebral artery: Patent. Right vertebral artery: Patent. Impressions: 1. Left carotid artery: Widely patent. 2. Right carotid artery: Suspected at least 50% short segment stenosis proximal ICA at the carotid bu lb, verify with vascular ultrasound imaging. Otherwise patent. Suspected high grade stenosis external carotid artery origin. 3. Widely patent bilateral vertebral arteries. 4. No dissection, aneurysm, AVM. [facility] Referring Provider Line: [phone] SITE ID: [id number]
[2017-02-21] MEDS ORDERED: METOPROLOL 5 MG/5 ML VIAL IVP STA (15:03)
[2017-02-21] MEDS ORDERED: PROCHLORPERAZINE 10 MG/2 ML VIAL IVP PRN (15:15)
[2017-02-21] MEDS ORDERED: LISINOPRIL 5 MG TABLET PO STA (16:04)
--- NOTE | 2017-02-21 16:07 | HISTORY & PHYSICAL EXAMINATION ---
Chief Complaint - Chief Complaint Chief Complaint: Visual changes History of Present Illness - Admitted From Admitted From:: Home - History of Present Illness HPI Comment/Other: Ms. Karyn Washington is a very pleasant 66-year-old female who has been sick for the last few days with nausea and vomiting. Today she began to see visual changes including different colored lights and floaters. She also was missing parts of her visual field. She asked her to take her to the emergency department where she was evaluated by the emergency department doctor as well as the telemedicine neurologist who believes that she may have PRES syndrome.Because of this she will be admitted to the intensive care unit and placed on a nicardipine drip in order to lower her blood pressure from 177/94. History - Past Medical History Cardiovascular: reports: Hypertension, High cholesterol Respiratory: reports: None Neuro: reports: None GI: reports: None : reports: Frequency Psych: reports: Depression Musculoskeletal: reports: Osteoarthritis MRSA Hx?: No - Past Surgical History General: reports: Appendectomy Ortho: reports: Carpal Tunnel surgery, Other (6 trigger finger releases and 2 removals of ganglion cysts to the top of her feet) - Family & Social History Family History: Mother: , Diabetes, Type 1, Father: , CAD, Hyperlipidemia, Hypertension, [place], Brother: , CAD, Hyperlipidemia, Hypertension, [place] Living arrangement: At home Living Situation: With spouse/s.o. - Substance History Use: Uses substance without health or social issues: Alcohol - POLST Patient has POLST: No POLST Status: Full Code Meds/Allgy - Home Medications Home Medications: Ambulatory Orders Medication Instructions Recorded Confirmed Lisinopril 10 mg PO DAILY 08/14/12 02/21/17 Aspirin 81 mg PO Q2D 12/04/15 02/21/17 Atorvastatin [Lipitor] 40 mg PO QPM 02/21/17 02/21/17 Sertraline [Zoloft] 50 mg PO DAILY 02/21/17 02/21/17 - Allergies Allergies/Adverse Reactions: Allergies Allergy/AdvReac Type Severity Reaction Status Date / Time morphine Allergy Intermediate Hives Verified 07/04/16 19:43 Penicillins Allergy Intermediate Rash Verified 07/04/16 19:43 hydrocodone [Hydrocodone] Allergy Mild Itching Verified 07/04/16 19:43 Review of Systems - Constitutional Constitutional: reports: Fatigue. denies: Fever, Chills - Eyes Eyes: reports: Blurred vision, Field loss. denies: Pain, Irritation - Ears, Nose & Throat Ears, Nose & Throat: denies: Ear pain, Hearing loss, Hearing aids, Tinnitus, Vertigo, Nasal pain, Nasal discharge - Cardiovascular Cariovascular: denies: Irregular heart rate, Palpitations, Chest pain, Edema - Respiratory Respiratory: denies: Cough, Sputum production, Wheezing, Hemoptysis, Orthopnea, SOB at rest, SOB with exertion - Gastrointestinal Gastrointestinal: denies: Abdominal pain, Abdominal distention, Constipation, Diarrhea, Change in bowel habits, Rectal bleeding - Genitourinary Genitourinary: denies: Dysuria, Frequency, Urgency, Hematuria - Musculoskeletal Musculoskeletal: denies: Muscle pain, Back pain, Muscle aches, Stiffness - Integumentary Integumentary: denies: Rash, Pruritis, Lesions, Dryness - Neurological Neurological: denies: General weakness, Focal weakness, Headache, Dizziness - Psychiatric Psychiatric: denies: Depression, Anxiety, Suicidal, Delusions, Hallucinations - Endocrine Endocrine: denies: Polyuria, Polydypsia, Polyphagia - Hematologic/Lymphatic Hematologic/Lymphatic: denies: Anemia, Bruising, Petechiae, Lymphadenopathy - All Other Systems All Other Systems: reports: Reviewed and negative Exam - Vital Signs Reviewed Vital Signs: Yes Vital Signs: Vital Signs x48h Temp Pulse Resp BP Pulse Ox 02/21/17 15:42 82 20 166/84 H 98 02/21/17 12:44 36.7 C 82 18 155/94 H 96 02/21/17 09:06 72 16 177/94 H 98 - Physical Exam General Appearance: positive: No acute distress, Alert Eyes Bilateral: positive: Normal inspection, PERRL, EOMI, No lid inflammation, Conjunctivae nml, No scleral icterus ENT: positive: ENT inspection nml, Pharynx nml, No signs of dehydration. negative: Purulent nasal drainage Neck: positive: Nml inspection, Thyroid nml, No JVD, Trachea midline, Thyromegaly Respiratory: positive: Chest non-tender, No respiratory distress, Breath sounds nml. negative: Wheezes, Rales, Rhonchi Cardiovascular: positive: Regular rate & rhythm, No murmur, No gallop Peripheral Pulses: positive: 1+ Abdomen: positive: Non-tender, No organomegaly, Nml bowel sounds, No distention. negative: Guarding, Rebound Back: positive: Nml inspection. negative: CVA tenderness (R), CVA tenderness (L ) Skin: positive: Color nml, No rash, Warm, Dry. negative: Cyanosis Extremities: positive: Non-tender, Full ROM, Nml appearance, No pedal edema Neurologic/Psychiatric: positive: Oriented x3, CN's nml (2-12), Other (Visual changes as noted above) Conclusion/Plan - Problem List (1) Posterior reversible encephalopathy syndrome (PRES) Conclusion/Plan: We will admit the patient to the intensive care unit on a nicardipine drip with a goal of reducing her systolic below 140.We will monitor her neurologic symptoms and address any other new issues as they arise (2) HTN (hypertension), malignant Conclusion/Plan: As noted above, we will place the patient on nicardipine drip. We will monitor her blood pressures closely, And she may need adjustment on her home medications. (3) Dyslipidemia Conclusion/Plan: Continue atorvastatin - Lab Results Lab results reviewed: Yes Fish Bones: 02/21/17 08:06 02/21/17 07:50 - Diagnostic Imaging Results Diagnostic Imaging Results: positive: Final report reviewed Diagnostic Imaging Results Comments: EXAM: CT HEAD WITHOUT CONTRAST EXAM DATE: 02/21/2017 08:40 AM. CLINICAL HISTORY: 66-year-old female with left-sided visual field loss. COMPARISON: Similar study of 09/18/2013. TECHNIQUE: Multiaxial CT images were obtained from the foramen magnum to the vertex on an emergent basis. Reformats: Coronal. IV contrast: None. In accordance with CT protocol optimization, one or more of the following dose reduction techniques were utilized for this exam: automated exposure control, adjustment of mA and/or KV based on patient size, or use of iterative reconstructive technique. FINDINGS: Parenchyma: No intraparenchymal hemorrhage. No evidence of mass, midline shift, or CT findings of infarction. Vazquez-white differentiation is distinct. Extraaxial Spaces: Normal for age. No subdural or epidural collections identified. Ventricles: Normal in size and position. Sinuses and Orbits: Imaged paranasal sinuses, orbits, and mastoids show no significant abnormality. Interval clearing of opacification of the right maxillary sinus. Bones: No evidence of fracture or calvarial defect. Other: None. IMPRESSION: Normal head CT. No mass, CVA or other demonstrated cause for the patient's symptoms. EXAMS: MRI BRAIN WITHOUT CONTRAST. MRA BRAIN WITHOUT CONTRAST. EXAM DATE: 02/21/2017 12:25 PM. CLINICAL HISTORY: Left visual field deficit. History of prior stroke. COMPARISON: Prior CT head 02/21/2017 at 0838 hours, prior MRI of brain 2013. TECHNIQUE: MRI: Multiplanar, multisequence T1-weighted and fluid-sensitive MRI sequences of the brain were performed. Sequences optimized for routine evaluation. Other: None. Post-processing: None. IV Contrast: None. MRA: Multiplanar, multisequence T1-weighted and fluid-sensitive MRA sequences of the brain were performed. Other: None. Post-processing: Multiplanar 3D MIP reconstructions. IV Contrast: None. Findings: Relevant images are indicated (image number, series number). There is no acute or subacute ischemic change in the brain. Gradient echo imaging demonstrates no significant hemosiderin deposition in the brain. There is no interval hemorrhage , mass or midline shift. Basal cisterns, bilateral IACs, bilateral Meckel's caves are clear. Orbital contents negative. Minimal right maxillary sinus mucosal thickening. Paranasal sinuses, mastoid air cells are otherwise unremarkable. There is an unusual presentation of white matter disease abutting bilateral juxtacortical parietal , precuneus, cutaneous with multifocal dense white matter disease within the cerebellum. Bilateral occipital poles demonstrate white matter disease right greater than left, again juxtacortical. There is also asymmetrical white matter disease bilateral thalami posteriorly, left greater than right. Superimposed mild scattered periventricular white matter disease resident. There is also bilateral juxtacortical white matter disease superior middle frontal gyrus right greater than left. White matter disease involves the bilateral parietal cortex including motor, to a lesser extent some minimal somatosensory cortex. Pituitary, infundibulum, mid range might cranial cervical junction, limited evaluation upper cervical or negative. Extraocular muscles, optic nerves, orbital apex, optic chiasm negative. MR angiogram brain: Left ICA: Widely patent including the MCA, AURELIO distribution. Right ICA: Widely patent including the MCA, AURELIO distribution. Posterior circulation: Patent distal bilateral vertebral arteries, basilar artery, patent bilateral LEVEL VIAL INSIDE GRINDER distribution. There is a prominent right posterior communicating artery. Impressions: Compared with MRI brain 09/19/2013: MRI brain: 1. No acute or subacute ischemic change in the brain. 2. Interval development of an unusual nearly symmetric bilateral white matter disease involving bilateral cerebellum, with supratentorial primarily juxtacortical scattered white matter disease bifrontal, biparietal amount of bilateral occipital as described including likely involvement lateral thalami. Differential diagnosis suggest hypertensive encephalopathy, other considerations include manifestation of paraneoplastic syndrome, metabolic encephalopathy such as hypo-or hyperglycemic state, less likely an infectious myelitis. Correlate closely with the neurological exam findings and clinical history. Consider short interval follow-up imaging based upon the clinical condition, neurological exam findings, also consider follow-up postcontrast imaging if symptoms persist and/or worsen. MRA brain: 1. Patent major arteries of the brain, with normal anatomical variability as described. No aneurysm , dissection, stenosis, AVM. EXAMS: MRI BRAIN WITHOUT CONTRAST. MRA BRAIN WITHOUT CONTRAST. EXAM DATE: 02/21/2017 12:25 PM. CLINICAL HISTORY: Left visual field deficit. History of prior stroke. COMPARISON: Prior CT head 02/21/2017 at 0838 hours, prior MRI of brain 2013. TECHNIQUE: MRI: Multiplanar, multisequence T1-weighted and fluid-sensitive MRI sequences of the brain were performed. Sequences optimized for routine evaluation. Other: None. Post-processing: None. IV Contrast: None. MRA: Multiplanar, multisequence T1-weighted and fluid-sensitive MRA sequences of the brain were performed. Other: None. Post-processing: Multiplanar 3D MIP reconstructions. IV Contrast: None. Findings: Relevant images are indicated (image number, series number). There is no acute or subacute ischemic change in the brain. Gradient echo imaging demonstrates no significant hemosiderin deposition in the brain. There is no interval hemorrhage , mass or midline shift. Basal cisterns, bilateral IACs, bilateral Meckel's caves are clear. Orbital contents negative. Minimal right maxillary sinus mucosal thickening. Paranasal sinuses, mastoid air cells are otherwise unremarkable. There is an unusual presentation of white matter disease abutting bilateral juxtacortical parietal , precuneus, cutaneous with multifocal dense white matter disease within the cerebellum. Bilateral occipital poles demonstrate white matter disease right greater than left, again juxtacortical. There is also asymmetrical white matter disease bilateral thalami posteriorly, left greater than right. Superimposed mild scattered periventricular white matter disease resident. There is also bilateral juxtacortical white matter disease superior middle frontal gyrus right greater than left. White matter disease involves the bilateral parietal cortex including motor, to a lesser extent some minimal somatosensory cortex. Pituitary, infundibulum, mid range might cranial cervical junction, limited evaluation upper cervical or negative. Extraocular muscles, optic nerves, orbital apex, optic chiasm negative. MR angiogram brain: Left ICA: Widely patent including the MCA, AURELIO distribution. Right ICA: Widely patent including the MCA, AURELIO distribution. Posterior circulation: Patent distal bilateral vertebral arteries, basilar artery, patent bilateral LEVEL VIAL INSIDE GRINDER distribution. There is a prominent right posterior communicating artery. Impressions: Compared with MRI brain 09/19/2013: MRI brain: 1. No acute or subacute ischemic change in the brain. 2. Interval development of an unusual nearly symmetric bilateral white matter disease involving bilateral cerebellum, with supratentorial primarily juxtacortical scattered white matter disease bifrontal, biparietal amount of bilateral occipital as described including likely involvement lateral thalami. Differential diagnosis suggest hypertensive encephalopathy, other considerations include manifestation of paraneoplastic syndrome, metabolic encephalopathy such as hypo-or hyperglycemic state, less likely an infectious myelitis. Correlate closely with the neurological exam findings and clinical history. Consider short interval follow-up imaging based upon the clinical condition, neurological exam findings, also consider follow-up postcontrast imaging if symptoms persist and/or worsen. MRA brain: 1. Patent major arteries of the brain, with normal anatomical variability as described. No aneurysm , dissection, stenosis, AVM. EXAM: MR ANGIOGRAM NECK EXAM DATE: 02/21/2017 12:42 PM. CLINICAL HISTORY: Left visual field deficit. COMPARISON: Accompanying MRI brain, MR angiogram brain. TECHNIQUE: Multiplanar, multisequence MRA sequences of the neck were performed. Other: None. Post- processing: Multiplanar 3D MIP reconstructions. IV Contrast: 10 cc Gadavist. Evaluation of arterial stenosis is based on a NASCET method of measurement. Findings: Relevant images are indicated (image number, series number). Aortic arch: Widely patent, bovine configuration of the great vessels. Left carotid artery: Widely patent. Right carotid artery: Patent to the carotid bulb, at least 50% short segment stenosis proximal ICA , otherwise patent. Likely significant stenosis of the origin of the external carotid artery. Left vertebral artery: Patent. Right vertebral artery: Patent. Impressions: 1. Left carotid artery: Widely patent. 2. Right carotid artery: Suspected at least 50% short segment stenosis proximal ICA at the carotid bulb, verify with vascular ultrasound imaging. Otherwise patent. Suspected high grade stenosis external carotid artery origin. 3. Widely patent bilateral vertebral arteries. 4. No dissection, aneurysm, AVM. Core Measures - Anticipated LOS I expect patient to be DC'd or transferred within 96 hours.: Yes - DVT/VTE - Prophylaxis VTE/DVT Device ordered at admit?: Yes
[2017-02-21] MEDS ORDERED: ASPIRIN CHEW 81 MG TABLET PO SCH (17:00)
[2017-02-21] MEDS: niCARdipine 20 MG/200 ML 20 MG/200 ML BAG IV SCH ×3 (17:35→23:25)
[2017-02-21] MEDS: NS W/20 MEQ KCL 1,000 ML IV SCH (17:46)
[2017-02-21] MEDS: SERTRALINE 50 MG TABLET PO SCH (17:52)
[2017-02-21] MEDS: MAG HYDROX/AL HYDROX/SIMETH 30 ML UDC PO PRN (20:41)
[2017-02-21] MEDS ORDERED: ATORVASTATIN 40 MG TABLET PO SCH (21:00)
[2017-02-21] MEDS: SODIUM CHLORIDE FLUSH 0.9% 10 ML SYRINGE IVP SCH (22:45)
[2017-02-22] MEDS: niCARdipine 20 MG/200 ML 20 MG/200 ML BAG IV SCH ×3 (01:53→07:31)
[2017-02-22] MEDS: NS W/20 MEQ KCL 1,000 ML IV SCH ×2 (03:53→15:13)
[2017-02-22] MEDS: SODIUM CHLORIDE FLUSH 0.9% 10 ML SYRINGE IVP SCH ×2 (07:03→15:14)
[2017-02-22] MEDS: MAG HYDROX/AL HYDROX/SIMETH 30 ML UDC PO PRN (07:42)
[2017-02-22] MEDS ORDERED: POLYETHYLENE GLYCOL 3350 17 GM PACKET PO SCH (09:00)
[2017-02-22] MEDS ORDERED: SERTRALINE 50 MG TABLET PO SCH (09:00)
[2017-02-22] MEDS ORDERED: LISINOPRIL 5 MG TABLET PO SCH ×2 (09:00)
[2017-02-22] MEDS ORDERED: ASPIRIN CHEW 81 MG TABLET PO SCH (09:00)
[2017-02-22] MEDS: SODIUM CHLORIDE FLUSH 0.9% 10 ML SYRINGE IVP PRN ×2 (09:34→10:21)
[2017-02-22] MEDS: SERTRALINE 50 MG TABLET PO SCH (10:08)
--- NOTE | 2017-02-22 12:33 | Discharge Plan ---
Discharge Plan Disposition: 01 Home, Self Care Condition: Fair Diet: Low Sodium Activity Restrictions: Activity as Tolerated Shower Restrictions: No Driving Restrictions: No Weight Bearing: Full Weight No Smoking: If you smoke, Please STOP! Call for help. Follow-up with: Laurence Guaman ARNP [Primary Care Provider] -
--- NOTE | 2017-02-22 13:20 | DISCHARGE SUMMARY ---
Discharge Summary Admit Date: 02/21/17 Discharge Date: 02/22/17 Discharging Provider: Ann Salguero DO Primary Care Provider: Ray Whitaker Code Status: Attempt Resuscitation Condition at Discharge: Fair Discharge Disposition: Home, Self Care - DIAGNOSES Admission Diagnoses: 1) Posterior reversible encephalopathy syndrome 2) Essential (primary) hypertension 3) Hyperlipidemia, unspecified Discharge Diagnoses with Status of Each Condition: 1) Posterior reversible encephalopathy syndrome - resolved with return of normotension 2) Essential (primary) hypertension - will continue home medications and add procardia. 3) Hyperlipidemia, unspecified - continue home care - HPI History of Present Illness: Ms. Karyn Washington is a very pleasant 66-year-old female who has been sick for the last few days with nausea and vomiting. Today she began to see visual changes including different colored lights and floaters. She also was missing parts of her visual field. She asked her to take her to the emergency department where she was evaluated by the emergency department doctor as well as the telemedicine neurologist who believes that she may have PRES syndrome.Because of this she will be admitted to the intensive care unit and placed on a nicardipine drip in order to lower her blood pressure from 177/94. - HOSPITAL COURSE Hospital Course: The patient was admitted to the intensive care unit and placed on a nicardipine drip. Her blood pressure was titrated down to the 120s over 70s-80s and her symptoms resolved.She has not had any other new problems and is now anxious to be discharged home. - ALLERGIES Allergies/Adverse Reactions: Allergies Allergy/AdvReac Type Severity Reaction Status Date / Time morphine Allergy Intermediate Hives Verified 07/04/16 19:43 Penicillins Allergy Intermediate Rash Verified 07/04/16 19:43 hydrocodone [Hydrocodone] Allergy Mild Itching Verified 07/04/16 19:43 - MEDICATIONS Home Medications: Ambulatory Orders Medication Instructions Recorded Confirmed RX: Lisinopril 10 mg PO DAILY 08/14/12 02/21/17 RX: Aspirin 81 mg PO Q2D 12/04/15 02/21/17 Atorvastatin [Lipitor] 40 mg PO QPM 02/21/17 02/21/17 RX: Sertraline [Zoloft] 50 mg PO DAILY 02/21/17 02/21/17 - PHYSICAL EXAM AT DISCHARGE General Appearance: positive: No acute distress, Alert Eyes Bilateral: positive: Normal inspection, PERRL, EOMI, No lid inflammation, Conjunctivae nml ENT: positive: ENT inspection nml, Pharynx nml, No signs of dehydration. negative: Purulent nasal drainage, Pharyngeal erythema Neck: positive: Nml inspection, Thyroid nml, No JVD, Trachea midline. negative : Lymphadenopathy (R), Lymphadenopathy (L) Respiratory: positive: Chest non-tender, No respiratory distress, Breath sounds nml. negative: Wheezes, Rales, Rhonchi Cardiovascular: positive: Regular rate & rhythm, No murmur, No gallop, Irregularly irregular, Extrasystoles Peripheral Pulses: positive: 1+ Abdomen: positive: Non-tender, No organomegaly, Nml bowel sounds, No distention. negative: Guarding, Rebound, Mass Back: positive: Nml inspection. negative: CVA tenderness (R), CVA tenderness (L ) Skin: positive: Color nml, No rash, Warm, Dry. negative: Cyanosis Extremities: positive: Non-tender, Full ROM, Nml appearance Neurologic/Psychiatric: positive: Oriented x3, CN's nml (2-12), Motor nml, Sensation nml, Mood/affect nml - LABS Result Diagrams: 02/21/17 08:06 02/21/17 07:50 - DIAGNOSTIC IMAGING Diagnostic Imaging Results: Final report reviewed Diagnostic Imaging Results Comments: See admission for reports on the MR neck angiogram, brain angiogram, and CT of the head - FOLLOW UP Follow Up: Patient will follow up with her primary care provider and will also see a community neurologist suggested by her primary care provider. - TIME SPENT Time Spent in Discharge (Minutes): 45
[2017-02-22] MEDS ORDERED: PNEUMOCOCCAL 13-VALENT CONJ 0.5 ML SYRINGE IM ONE (14:00)
[2017-02-22 15:42] VITALS: BP 132/80
[2017-02-23] MEDS ORDERED: NIFEdipine ER 30 MG TABLET PO SCH (09:00)
== END 2017-02-22 16:20 | disposition home or self-care (01) | DRG 72 ==
LOC: ED 07:43 → ICU 15:15
PROVIDERS: ADMIT Hospitalist; ATTEND Hospitalist
DX: I67.83 Posterior reversible encephalopathy syndrome (principal); I10 Essential (primary) hypertension; E78.5 Hyperlipidemia, unspecified; F32.9 Major depressive disorder, single episode, unspecified; Z79.82 Long term (current) use of aspirin; Z86.73 Personal history of transient ischemic attack (TIA), and cerebral infarction without residual deficits
CPT/HCPCS: 36415; 70450; 70544; 70549; 70551; 80053; 83690; 85025; 85610; 87150; 90670; 93005; 96374; 96375; 99283; 99284

== ENCOUNTER 2017-07-18 08:18 | Outpatient (CLI) | payer MEDICARE ==
[2017-07-18 12:07] LABS: ALT ALANINE AMINOTRANSFERASE 23 IU/L (10-60); AST ASPARTATE AMINOTRANSFERASE 21 IU/L (10-42)
[2017-07-18 12:14] LABS: BUN - BLOOD UREA NITROGEN 20 mg/dL (6-20); CALCIUM 9.4 mg/dL (8.5-10.3); CARBON DIOXIDE - CO2 29 mmol/L (21-32); CHLORIDE 105 mmol/L (101-111); CHOL/HDL RATIO 2.5 (<4.4); CHOLESTEROL 120 mg/dL; CREATININE 0.5 mg/dL (0.4-1.0); GFR - MDRD 123 (>89); GLUCOSE 114 mg/dL (70-100); HDL CHOLESTEROL 48 mg/dL; LDL CHOLESTEROL,CALCULATED 57 mg/dL; LDL/HDL RATIO 1.2 (<4.4); SODIUM 141 mmol/L (135-145); VLDL CHOLESTEROL 15 mg/dL
[2017-07-18 12:18] LABS: HB2 TOTAL 14.5 g/dL; HEMOGLOBIN A1C 0.49 g/dL; HEMOGLOBIN A1C % 5.2 % (4.6-6.2)
== END 2017-07-18 08:19 | disposition home or self-care (01) ==
LOC: LAB.F 08:18
PROVIDERS: ATTEND Physician Assistant Medical
DX: B35.1 Tinea unguium (principal); R73.01 Impaired fasting glucose; E78.5 Hyperlipidemia, unspecified; Z86.79 Personal history of other diseases of the circulatory system
CPT/HCPCS: 36415; 80048; 80061; 83036; 83721; 84450; 84460

== ENCOUNTER 2017-08-29 08:24 | Outpatient (CLI) | payer MEDICARE ==
[2017-08-29 11:52] LABS: ALT ALANINE AMINOTRANSFERASE 21 IU/L (10-60); AST ASPARTATE AMINOTRANSFERASE 18 IU/L (10-42)
== END 2017-08-29 08:25 | disposition home or self-care (01) ==
LOC: LAB.F 08:24
PROVIDERS: ATTEND Physician Assistant Medical
DX: B35.1 Tinea unguium (principal); Z79.899 Other long term (current) drug therapy
CPT/HCPCS: 36415; 84450; 84460

== ENCOUNTER 2017-10-10 07:41 | Outpatient (CLI) | payer MEDICARE ==
[2017-10-10 11:46] LABS: ALT ALANINE AMINOTRANSFERASE 23 IU/L (10-60); AST ASPARTATE AMINOTRANSFERASE 19 IU/L (10-42)
== END 2017-10-10 07:42 | disposition home or self-care (01) ==
LOC: LAB.F 07:41
PROVIDERS: ATTEND Physician Assistant Medical
DX: B35.1 Tinea unguium (principal); Z79.899 Other long term (current) drug therapy
CPT/HCPCS: 36415; 84450; 84460

== ENCOUNTER 2017-11-28 08:19 | Outpatient (CLI) | payer MEDICARE ==
[2017-11-28 11:10] LABS: ALT ALANINE AMINOTRANSFERASE 20 IU/L (10-60); AST ASPARTATE AMINOTRANSFERASE 21 IU/L (10-42)
== END 2017-11-28 08:20 | disposition home or self-care (01) ==
LOC: LAB.F 08:19
PROVIDERS: ATTEND Physician Assistant Medical
DX: B35.1 Tinea unguium (principal); Z79.899 Other long term (current) drug therapy
CPT/HCPCS: 36415; 84450; 84460

== ENCOUNTER 2018-04-05 09:55 | Emergency (ER) | payer MEDICARE ==
[2018-04-05] MEDS ORDERED: SODIUM CHLORIDE 0.9% 1,000 ML IV ONE ×2 (10:12→12:08)
--- NOTE | 2018-04-05 10:14 | ED Physician Documentation ---
PD HPI FOCAL NEURO - Stated complaint Stated Complaint: HIGH BP/BLURRY VISION - Chief complaint Chief Complaint: Neuro - History obtained from History obtained from: Patient, Family - History of Present Illness Timing - onset: Today Timing - duration: Hours Timing - details: Abrupt onset, Still present Severity of deficit: Moderate Weakness: No: Face, Arm, Hand, Leg, Foot, Right, Left Numbness: No: Face, Arm, Hand, Leg, Foot, Right, Left Associated symptoms: No: Headache, Nausea / vomiting, Seizure, Syncope, Fall, Head injury, Chest pain, Neck pain, Back pain, Fever Baseline status: positive: A&OX3, ambulatory, indep Similar symptoms before: Diagnosis (PRES) Recently seen: Not recently seen - Additional information Additional information: 67-year-old female went out to dinner on the other side and she came back and the following morning she developed acute nausea and vomiting. She vomited all day yesterday and in the evening she was able to hold down some milk and has returned to drink water repeatedly. She still has some nausea. She is now developed flashes of light floaters and a visual field cut similar to what she had 1 year ago under similar circumstances. At that time she was thought to have posterior reversible encephalopathy syndrome Review of Systems Constitutional: reports: Fatigue. denies: Fever, Chills Eyes: reports: Loss of vision, Decreased vision Ears: denies: Ear pain Nose: denies: Rhinorrhea / runny nose, Congestion Throat: denies: Oral lesions / sores Cardiac: denies: Chest pain / pressure, Palpitations Respiratory: denies: Dyspnea, Cough GI: reports: Nausea, Vomiting. denies: Abdominal Pain : denies: Dysuria, Frequency Skin: denies: Rash Musculoskeletal: denies: Neck pain, Back pain, Extremity pain PD PAST MEDICAL HISTORY - Past Medical History Cardiovascular: Hypertension, High cholesterol Respiratory: None GI: None : Frequency Psych: Depression Musculoskeletal: Osteoarthritis - Past Surgical History Past Surgical History: Yes General: Appendectomy Ortho: Carpal Tunnel surgery - Present Medications Home Medications: Ambulatory Orders Medication Instructions Recorded Confirmed Lisinopril 10 mg PO DAILY 08/14/12 02/21/17 Aspirin 81 mg PO Q2D 12/04/15 02/21/17 Atorvastatin [Lipitor] 40 mg PO QPM 02/21/17 02/21/17 Sertraline [Zoloft] 50 mg PO DAILY 02/21/17 02/21/17 Prochlorperazine Maleate 10 mg PO Q6HR PRN #12 tablet 04/05/18 [Compazine] - Allergies Allergies/Adverse Reactions: Allergies Allergy/AdvReac Type Severity Reaction Status Date / Time morphine Allergy Intermediate Hives Verified 04/05/18 10:02 Penicillins Allergy Intermediate Rash Verified 04/05/18 10:02 hydrocodone [Hydrocodone] Allergy Mild Itching Verified 04/05/18 10:02 - Social History Does the pt smoke?: No Smoking Status: Never smoker Does the pt drink ETOH?: No Does the pt have substance abuse?: No - Immunizations Immunizations are current?: Yes - POLST Patient has POLST: No POLST Status: Full Code PD ED PE NORMAL - Vitals Vital signs reviewed: Yes (hypertensive ) - General General: Alert and oriented X 3, No acute distress, Well developed/nourished - HEENT HEENT: Atraumatic, PERRL, EOMI, Ears normal, Other (dry mucous membranes ) - Neck Neck: Supple, no meningeal sign, No bony TTP - Cardiac Cardiac: RRR, No murmur - Respiratory Respiratory: No respiratory distress, Clear bilaterally - Abdomen Abdomen: Soft, Non tender - Back Back: No CVA TTP, No spinal TTP - Derm Derm: Normal color, Warm and dry, No rash - Extremities Extremities: No deformity, No edema - Neuro Neuro: Alert and oriented X 3, medical transcription editor 2-12 intact, No motor deficit, No sensory deficit, Normal speech Eye Opening: Spontaneous Motor: Obeys Commands Verbal: Oriented GCS Score: 15 - Psych Psych: Normal mood, Normal affect NIHSS - Level of Consciousness Level of consciousness: (0) Alert, Keenly responsive LOC Questions: (0) Answers both Q's correct LOC Commands: (0) Performs both correctly - Gaze Best Gaze: (0) Normal - Visual Visual: (1) Partial hemianopia - Facial Palsy Facial Palsy: (0) Normal, symmetrical movement - Motor Arms (both separate) Motor Arm (right): (0) No drift Motor Arm (left): (0) No drift - Motor Legs (both separate) Motor Leg (right): (0) No drift Motor Leg (left): (0) No drift - Limb Ataxia Limb Ataxia: (0) Absent - Sensory Sensory: (0) Normal - Best Language Best Language: (0) No aphasia - Dysarthria Dysarthria: (0) Normal - Extinction and Inattention (formally neg Extinction and inattention: (0) No abnormality - Total Score/Results Total Score/Result: 1 Results - Vitals Vitals: Vital Signs - 24 hr 04/05/18 04/05/18 04/05/18 09:59 10:15 12:36 Temperature 36.1 C L Heart Rate 89 90 Respiratory 18 17 Rate Blood Pressure 188/75 H 160/85 H 175/80 H O2 Saturation 96 98 98 Oxygen O2 Source [] Room air O2 Source Room air - EKG (time done) 1101 Rate: Rate (enter#) (79) Rhythm: NSR Intervals: Prolonged QT Other comments: Other comments (early transition) Compare to prior EKG: Unchanged from prior EKG (SPT 02-21-17 no change) Computer interpretation: Agree with computer - Labs Labs: Laboratory Tests 04/05/18 04/05/18 04/05/18 11:00 11:14 11:14 WBC 15.1 H RBC 4.69 Hgb 13.6 Hct 40.5 MCV 86.3 MCH 29.0 MCHC 33.6 RDW 14.6 Plt Count 238 MPV 8.2 Neut # (Auto) 12.7 H Lymph # (Auto) 1.5 [place] # (Auto) 0.9 Eos # (Auto) 0.0 Baso # (Auto) 0.1 Absolute Nucleated RBC 0.00 Nucleated RBC % 0.0 Sodium 141 Potassium 3.3 L Chloride 100 L Carbon Dioxide 27 Anion Gap 14.0 H BUN 24 H Creatinine 0.4 Estimated GFR (MDRD) 159 Glucose 133 H Calcium 10.2 Total Bilirubin 0.9 AST 23 ALT 21 Alkaline Phosphatase 65 Troponin I Total Protein 7.6 Albumin 4.4 Globulin 3.2 Albumin/Globulin Ratio 1.4 Lipase 23 Urine Color YELLOW Urine Clarity HAZY Urine pH 6.0 Ur Specific [place] 1.025 Urine Protein 100 H Urine Glucose (UA) NEGATIVE Urine Ketones NEGATIVE Urine Occult Blood TRACE-LYSE Urine Nitrite NEGATIVE Urine Bilirubin NEGATIVE Urine Urobilinogen 0.2 (NORMAL) Ur Leukocyte Esterase NEGATIVE Urine RBC 0-5 Urine WBC 4-5 Ur Squamous Epith Cells MANY Squamous H Urine Bacteria Many H Urine Casts >50 Hyaline Casts Urine Mucus Marked Strands Ur Microscopic Review INDICATED Urine Culture Comments NOT INDICATED 04/05/18 04/05/18 11:26 12:43 WBC RBC Hgb Hct MCV MCH MCHC RDW Plt Count MPV Neut # (Auto) Lymph # (Auto) [place] # (Auto) Eos # (Auto) Baso # (Auto) Absolute Nucleated RBC Nucleated RBC % Sodium Potassium Chloride Carbon Dioxide Anion Gap BUN Creatinine Estimated GFR (MDRD) Glucose Calcium Total Bilirubin AST ALT Alkaline Phosphatase Troponin I 0.07 0.07 Total Protein Albumin Globulin Albumin/Globulin Ratio Lipase Urine Color Urine Clarity Urine pH Ur Specific [place] Urine Protein Urine Glucose (UA) Urine Ketones Urine Occult Blood Urine Nitrite Urine Bilirubin Urine Urobilinogen Ur Leukocyte Esterase Urine RBC Urine WBC Ur Squamous Epith Cells Urine Bacteria Urine Casts Urine Mucus Ur Microscopic Review Urine Culture Comments Procedures - IVC sono (time) 1005 Bedside IVC sono: IVC measures (cm) (0.84), IVC collapsed c insp (cm) (complete), Dehydration (est 2 liter deficit) PD MEDICAL DECISION MAKING - ED course Complexity details: reviewed old records, reviewed results, re-evaluated patient, considered differential, d/w patient, d/w family ED course: 67-year-old female with a prior history of posterior reversible encephalopathy syndrome with dehydration and hypertension has become dehydrated again today and she is hypertensive. She is developed similar symptoms to what she had 1 year ago. Here in the emerge department she is found to be dehydrated on interrogation the inferior vena cava estimated at 2 liter deficit and IV fluids are begun. After 2 L of fluid in the patient has some persistent nausea and this is improved more effectively with the use of Compazine. She has resolution of her visual changes including the hemianopsia and floaters. Departure - Departure Disposition: 01 Home, Self Care Clinical Impression: Posterior reversible encephalopathy syndrome (PRES), Dehydration, Gastroent eritis Instructions: ED Dehydration, ED Food Poison Or Gastroenteritis Follow-Up: Sheri Lopez DNP [Primary Care Provider] - Prescriptions: Prochlorperazine Maleate [Compazine] 10 mg PO Q6HR PRN #12 tablet PRN Reason: Nausea / Vomiting
[2018-04-05 11:07] LABS: GLUCOSE, URINE (UA) NEGATIVE (NEGATIVE); KETONES,URINE (UA) NEGATIVE (NEGATIVE); LEUKOCYTE ESTERASE, URINE NEGATIVE (NEGATIVE); NITRITE,URINE NEGATIVE (NEGATIVE); OCCULT BLOOD,URINE TRACE-LYSE (NEGATIVE); PROTEIN,URINE 100 mg/dL (NEGATIVE); UROBILINOGEN,URINE 0.2 (NORMAL) E.U./dL (NORMAL)
[2018-04-05 11:13] LABS: BILIRUBIN,URINE NEGATIVE (NEGATIVE); CLARITY,URINE HAZY (CLEAR); ICTOTEST,URINE NEGATIVE
[2018-04-05 11:21] LABS: BACTERIA,URINE Many /HPF (None Seen); CASTS, URINE >50 Hyaline Casts /LPF; MUCUS,URINE Marked Strands; RBC,URINE 0-5 /HPF (0-5); SQUAMOUS EPITHELIAL CELL,UR MANY Squamous (<= Few)
[2018-04-05 11:27] LABS: BASOPHILS # (AUTO) 0.1 10^3/uL (0.0-0.1); BASOPHILS % (AUTO) 0.5 %; HGB - HEMOGLOBIN 13.6 g/dL (12.0-16.0); LYMPHOCYTES # (AUTO) 1.5 10^3/uL (1.5-3.5); LYMPHOCYTES % (AUTO) 9.9 %; MEAN CORPUSCULAR HGB CONC 33.6 g/dL (32.0-36.0); MEAN CORPUSCULAR VOLUME 86.3 fL (81.0-99.0); MEAN PLATELET VOLUME 8.2 fL (7.9-10.8); MONOCYTES # (AUTO) 0.9 10^3/uL (0.0-1.0); MONOCYTES % (AUTO) 5.8 %; NEUTROPHILS # (AUTO) 12.7 10^3/uL (1.5-6.6); NEUTROPHILS % (AUTO) 83.8 %; PLT - PLATELET COUNT 238 10^3/uL (130-450); RED BLOOD COUNT 4.69 10^6/uL (4.20-5.40); RED CELL DISTRIBUTION WIDTH 14.6 % (12.0-15.0); WHITE BLOOD COUNT 15.1 x10^3/uL (4.8-10.8)
[2018-04-05] MEDS ORDERED: ONDANSETRON 4 MG/2 ML VIAL IVP STA (11:29)
[2018-04-05 11:45] LABS: ALBUMIN 4.4 g/dL (3.2-5.5); ALBUMIN/GLOBULIN RATIO 1.4 (1.0-2.2); BILIRUBIN,TOTAL 0.9 mg/dL (0.2-1.0); CALCIUM 10.2 mg/dL (8.5-10.3); CREATININE 0.4 mg/dL (0.4-1.0); TOTAL PROTEIN 7.6 g/dL (6.7-8.2)
[2018-04-05] MEDS ORDERED: POTASSIUM BICARB 25 MEQ TABLET PO STA (12:56)
[2018-04-05] MEDS ORDERED: PROCHLORPERAZINE 10 MG/2 ML VIAL IVP STA (13:29)
[2018-04-05 14:18] VITALS: BP 162/84
== END 2018-04-05 14:30 | disposition home or self-care (01) ==
LOC: ED 09:55
DX: I67.83 Posterior reversible encephalopathy syndrome (principal); E86.0 Dehydration; K52.9 Noninfective gastroenteritis and colitis, unspecified; I45.81 Long QT syndrome; E78.00 Pure hypercholesterolemia, unspecified; Z79.82 Long term (current) use of aspirin
CPT/HCPCS: 36415; 80053; 81001; 83690; 84484; 85025; 93005; 96361; 96374; 96375; 99284; A9270; 81003; 87086

== ENCOUNTER 2018-04-08 12:57 | Emergency (ER) | payer MEDICARE ==
[2018-04-08 13:27] LABS: BILIRUBIN,URINE NEGATIVE (NEGATIVE); GLUCOSE, URINE (UA) NEGATIVE (NEGATIVE); KETONES,URINE (UA) TRACE mg/dL (NEGATIVE); LEUKOCYTE ESTERASE, URINE NEGATIVE (NEGATIVE); NITRITE,URINE NEGATIVE (NEGATIVE); OCCULT BLOOD,URINE NEGATIVE (NEGATIVE); PH,URINE 5.5 PH (5.0-7.5); PROTEIN,URINE NEGATIVE (NEGATIVE); UROBILINOGEN,URINE 0.2 (NORMAL) E.U./dL (NORMAL)
[2018-04-08 13:28] LABS: CLARITY,URINE CLEAR (CLEAR)
--- NOTE | 2018-04-08 14:02 | ED Physician Documentation ---
History of Present Illness - Stated complaint Stated Complaint: FALLING - Chief complaint Chief Complaint: Trauma Hd/Nk - History obtained from History obtained from: Patient - History of Present Illness Timing: How many days ago (3) Pain level max: 0 Pain level now: 0 - Additonal information Additional information: States feeling weak for the past 2-3 days. Has fallen x 4. No injuries. States she feels like she is being "shaken like jello" when this occurs. Increased lisinopril a few days ago. Otherwise no medication changes. given IV fluids here 2 days ago. better with rest. worse with walking. h/o PRES Review of Systems Ten Systems: 10 systems reviewed and negative Constitutional: denies: Fever, Chills Ears: denies: Ear pain Nose: denies: Rhinorrhea / runny nose, Congestion Throat: denies: Sore throat Respiratory: denies: Cough GI: reports: Nausea (a few days ago, not now) : denies: Dysuria Skin: denies: Rash Musculoskeletal: denies: Neck pain, Back pain Neurologic: denies: Focal weakness, Numbness, Confused, Altered mental status, Headache PD PAST MEDICAL HISTORY - Past Medical History Cardiovascular: Hypertension, High cholesterol Respiratory: None GI: None : Frequency Psych: Depression Musculoskeletal: Osteoarthritis - Past Surgical History Past Surgical History: Yes General: Appendectomy Ortho: Carpal Tunnel surgery - Present Medications Home Medications: Ambulatory Orders Medication Instructions Recorded Confirmed Lisinopril 10 mg PO DAILY 08/14/12 04/08/18 Aspirin 81 mg PO Q2D 12/04/15 04/08/18 Atorvastatin [Lipitor] 40 mg PO QPM 02/21/17 04/08/18 Sertraline [Zoloft] 50 mg PO DAILY 02/21/17 04/08/18 - Allergies Allergies/Adverse Reactions: Allergies Allergy/AdvReac Type Severity Reaction Status Date / Time morphine Allergy Intermediate Hives Verified 04/05/18 10:02 Penicillins Allergy Intermediate Rash Verified 04/05/18 10:02 hydrocodone [Hydrocodone] Allergy Mild Itching Verified 04/08/18 13:09 - Social History Does the pt smoke?: No Smoking Status: Never smoker Does the pt drink ETOH?: No Does the pt have substance abuse?: No - Immunizations Immunizations are current?: Yes - POLST Patient has POLST: No POLST Status: Full Code PD ED PE NORMAL - Vitals Vital signs reviewed: Yes - General General: Alert and oriented X 3, No acute distress, Well developed/nourished - HEENT HEENT: PERRL, Other (dry lips) - Neck Neck: Supple, no meningeal sign - Cardiac Cardiac: RRR, Strong equal pulses - Respiratory Respiratory: No respiratory distress, Clear bilaterally - Abdomen Abdomen: Soft, Non tender, Non distended - Back Back: No spinal TTP - Derm Derm: Warm and dry, No rash - Extremities Extremities: No edema, No calf tenderness / cord - Neuro Neuro: Alert and oriented X 3, public policy mediator 2-12 intact, No motor deficit, No sensory deficit, Normal speech, Other (normal cerebellar tests) Eye Opening: Spontaneous Motor: Obeys Commands Verbal: Oriented GCS Score: 15 - Psych Psych: Normal mood, Normal affect Results - Vitals Vitals: Vital Signs - 24 hr 04/08/18 15:56 Heart Rate 70 Respiratory 16 Rate Blood Pressure 124/60 O2 Saturation 97 Oxygen O2 Source [Without Activity] Room air O2 Source Room air - Labs Labs: Laboratory Tests 04/08/18 04/08/18 04/08/18 13:20 14:13 14:13 WBC 7.5 RBC 4.47 Hgb 13.2 Hct 38.9 MCV 87.1 MCH 29.5 MCHC 33.8 RDW 14.8 Plt Count 197 MPV 8.2 Neut # (Auto) 4.7 Lymph # (Auto) 1.9 [place] # (Auto) 0.7 Eos # (Auto) 0.1 Baso # (Auto) 0.1 Absolute Nucleated RBC 0.00 Nucleated RBC % 0.0 Sodium 136 Potassium 3.5 Chloride 102 Carbon Dioxide 25 Anion Gap 9.0 BUN 32 H Creatinine 0.6 Estimated GFR (MDRD) 100 Glucose 102 H Calcium 8.9 Phosphorus 4.4 Magnesium 2.0 Total Bilirubin 1.2 H AST 19 ALT 20 Alkaline Phosphatase 63 Total Protein 6.8 Albumin 3.9 Globulin 2.9 Albumin/Globulin Ratio 1.3 Lipase 29 Urine Color DARK YELLOW Urine Clarity CLEAR Urine pH 5.5 Ur Specific [place] 1.025 Urine Protein NEGATIVE Urine Glucose (UA) NEGATIVE Urine Ketones TRACE Urine Occult Blood NEGATIVE Urine Nitrite NEGATIVE Urine Bilirubin NEGATIVE Urine Urobilinogen 0.2 (NORMAL) Ur Leukocyte Esterase NEGATIVE Ur Microscopic Review NOT INDICATED Urine Culture Comments NOT INDICATED PD MEDICAL DECISION MAKING - ED course Complexity details: reviewed old records, reviewed results, re-evaluated patient, considered differential, d/w patient ED course: 67-year-old female presents to the emergency department what appears to be dehydration. Feels better after IV fluids. We will hold her lisinopril at this time and see if this improves her feeling of weakness and dehydration. This was recently increased from 10-20 mg. Patient is ambulating without difficulty in the emergency department. No significant electrolyte abnormalities. Patient counseled regarding signs and symptoms for which I believe and urgent re- evaluation would be necessary. Patient with good understanding of and agreement to plan and is comfortable going home at this time This document was made in part using voice recognition software. While efforts are made to proofread this document, sound alike and grammatical errors may occur. Departure - Departure Disposition: 01 Home, Self Care Clinical Impression: Dehydration Condition: Good Instructions: ED Dehydration Follow-Up: Sheri Lopez DNP [Primary Care Provider] - Within 1 week Comments: Hold your lisinopril at this time. Return if you worsen. Follow-up with your doctor for further care. They may want to change your blood pressure medication. You can also try drinking oral rehydration solutions at home. You can find recipes on the Internet for this. Discharge Date/Time: 04/08/18 15:56
[2018-04-08 14:17] LABS: BASOPHILS # (AUTO) 0.1 10^3/uL (0.0-0.1); BASOPHILS % (AUTO) 0.9 %; EOSINOPHILS # (AUTO) 0.1 10^3/uL (0.0-0.7); EOSINOPHILS % (AUTO) 1.7 %; HGB - HEMOGLOBIN 13.2 g/dL (12.0-16.0); LYMPHOCYTES # (AUTO) 1.9 10^3/uL (1.5-3.5); LYMPHOCYTES % (AUTO) 25.2 %; MEAN CORPUSCULAR HEMOGLOBIN 29.5 pg (27.0-31.0); MEAN CORPUSCULAR HGB CONC 33.8 g/dL (32.0-36.0); MEAN CORPUSCULAR VOLUME 87.1 fL (81.0-99.0); MEAN PLATELET VOLUME 8.2 fL (7.9-10.8); MONOCYTES # (AUTO) 0.7 10^3/uL (0.0-1.0); MONOCYTES % (AUTO) 9.9 %; NEUTROPHILS # (AUTO) 4.7 10^3/uL (1.5-6.6); NEUTROPHILS % (AUTO) 62.3 %; PLT - PLATELET COUNT 197 10^3/uL (130-450); RED BLOOD COUNT 4.47 10^6/uL (4.20-5.40); RED CELL DISTRIBUTION WIDTH 14.8 % (12.0-15.0); WHITE BLOOD COUNT 7.5 x10^3/uL (4.8-10.8)
[2018-04-08] MEDS ORDERED: LACTATED RINGERS 1,000 ML IV STA (14:27)
[2018-04-08 14:31] LABS: ALBUMIN 3.9 g/dL (3.2-5.5); ALBUMIN/GLOBULIN RATIO 1.3 (1.0-2.2); BILIRUBIN,TOTAL 1.2 mg/dL (0.2-1.0); CALCIUM 8.9 mg/dL (8.5-10.3); CREATININE 0.6 mg/dL (0.4-1.0); PHOSPHORUS 4.4 mg/dL (2.5-4.6); TOTAL PROTEIN 6.8 g/dL (6.7-8.2)
[2018-04-08] MEDS ORDERED: SODIUM CHLORIDE 0.9% 1,000 ML IV ONE (14:55)
[2018-04-08 15:57] VITALS: BP 124/60
== END 2018-04-08 15:56 | disposition home or self-care (01) ==
LOC: ED 12:57
DX: E86.0 Dehydration (principal); Z91.81 History of falling; I10 Essential (primary) hypertension; Z79.82 Long term (current) use of aspirin
CPT/HCPCS: 36415; 80053; 81003; 83690; 83735; 84100; 85025; 99282; 99283; J7120; 81001; 87086

== ENCOUNTER 2018-04-18 11:13 | Outpatient (CLI) | payer MEDICARE ==
[2018-04-18 18:27] LABS: CALCIUM 9.3 mg/dL (8.5-10.3); CREATININE 0.5 mg/dL (0.4-1.0)
== END 2018-04-18 11:14 | disposition home or self-care (01) ==
LOC: LAB.F 11:13
PROVIDERS: ATTEND Nurse Practitioner Family
DX: R73.01 Impaired fasting glucose (principal)
CPT/HCPCS: 36415; 80048

== ENCOUNTER 2018-06-14 15:01 | Outpatient (CLI) | payer MEDICARE ==
--- NOTE | 2018-06-15 08:21 | Mammography Report ---
Reason: MAMMOGRAPHIC SCREENING FOR BREAST CANCER Procedure Date: 06/14/2018 Accession Number: [id number] / [id number] Procedure: NEAL - Screening Mammo w/Ramirez CPT Code: FULL RESULT: EXAM: Screening Mammo w/Ramirez DATE: 06/14/2018 3:45 PM CLINICAL HISTORY: Screening encounter. History of early menses and late childbearing. TECHNIQUE: (B) - Bilateral CC and MLO views were obtained. COMPARISON: 10/24/2013 through 06/07/2010. PARENCHYMAL PATTERN: (A) - The breast(s) demonstrate(s) scattered fibroglandular densities. FINDINGS: A right upper outer breast typically benign appearing nodule with features consistent with a lymph node demonstrates long-term stability. A left retroconal posterior nodule with apparent fatty hilum similar demonstrates typically benign features of a lymph node and demonstrates long-term stability. There are no suspicious masses, calcifications, or areas of distortion. IMPRESSION: Benign findings. BI-RADS category 2. RECOMMENDATION: (ANNUAL) - Recommend routine annual screening mammography. BI-RADS CATEGORY: (2) - Benign Findings. STANDARD QUALIFYING STATEMENTS: 1. This examination was not reviewed with the aid of Computer-Aided Detection (CAD). 2. A negative or benign imaging report should not preclude biopsy if clinically suspicious findings are present. 3. Dense breasts may obscure an underlying neoplasm. 4. This examination was reviewed with the aid of 3D breast imaging (tomosynthesis).
== END 2018-06-14 15:02 | disposition home or self-care (01) ==
LOC: DI 15:01
PROVIDERS: ATTEND Nurse Practitioner
DX: Z12.31 Encounter for screening mammogram for malignant neoplasm of breast (principal)
CPT/HCPCS: 77063; 77067

== ENCOUNTER 2018-07-10 07:16 | Outpatient (CLI) | payer MEDICARE ==
[2018-07-10 10:22] LABS: BASOPHILS # (AUTO) 0.1 10^3/uL (0.0-0.1); BASOPHILS % (AUTO) 1.1 %; EOSINOPHILS # (AUTO) 0.2 10^3/uL (0.0-0.7); EOSINOPHILS % (AUTO) 3.6 %; HGB - HEMOGLOBIN 13.6 g/dL (12.0-16.0); LYMPHOCYTES # (AUTO) 1.9 10^3/uL (1.5-3.5); LYMPHOCYTES % (AUTO) 29.8 %; MEAN CORPUSCULAR HEMOGLOBIN 29.2 pg (27.0-31.0); MEAN CORPUSCULAR HGB CONC 32.7 g/dL (32.0-36.0); MEAN CORPUSCULAR VOLUME 89.1 fL (81.0-99.0); MEAN PLATELET VOLUME 9.2 fL (7.9-10.8); MONOCYTES # (AUTO) 0.4 10^3/uL (0.0-1.0); MONOCYTES % (AUTO) 6.5 %; NEUTROPHILS # (AUTO) 3.8 10^3/uL (1.5-6.6); PLT - PLATELET COUNT 215 10^3/uL (130-450); RED BLOOD COUNT 4.65 10^6/uL (4.20-5.40); RED CELL DISTRIBUTION WIDTH 14.5 % (12.0-15.0); WHITE BLOOD COUNT 6.4 x10^3/uL (4.8-10.8)
[2018-07-10 10:34] LABS: ALBUMIN 4.2 g/dL (3.2-5.5); ALBUMIN/GLOBULIN RATIO 1.3 (1.0-2.2); ALKALINE PHOSPHATASE 65 IU/L (42-121); ALT ALANINE AMINOTRANSFERASE 24 IU/L (10-60); AST ASPARTATE AMINOTRANSFERASE 24 IU/L (10-42); BILIRUBIN,TOTAL 0.6 mg/dL (0.2-1.0); BUN - BLOOD UREA NITROGEN 21 mg/dL (6-20); CALCIUM 9.1 mg/dL (8.5-10.3); CARBON DIOXIDE - CO2 26 mmol/L (21-32); CHLORIDE 104 mmol/L (101-111); CHOL/HDL RATIO 2.8 (<4.4); CHOLESTEROL 165 mg/dL; CREATININE 0.4 mg/dL (0.4-1.0); GFR - MDRD 159 (>89); GLUCOSE 133 mg/dL (70-100); HDL CHOLESTEROL 59 mg/dL; LDL CHOLESTEROL,CALCULATED 90 mg/dL; LDL/HDL RATIO 1.5 (<4.4); SODIUM 141 mmol/L (135-145); TOTAL PROTEIN 7.4 g/dL (6.7-8.2); VLDL CHOLESTEROL 16 mg/dL
[2018-07-10 10:45] LABS: HB2 TOTAL 14.7 g/dL; HEMOGLOBIN A1C 0.5 g/dL; HEMOGLOBIN A1C % 5.3 % (4.6-6.2)
== END 2018-07-10 07:17 | disposition home or self-care (01) ==
LOC: LAB.F 07:16
PROVIDERS: ATTEND Physician Assistant Medical
DX: Z00.00 Encounter for general adult medical examination without abnormal findings (principal); B35.1 Tinea unguium; Z79.899 Other long term (current) drug therapy
CPT/HCPCS: 36415; 80053; 80061; 83036; 83721; 84443; 85025

== ENCOUNTER 2018-07-24 12:17 | Outpatient (CLI) | payer MEDICARE ==
--- NOTE | 2018-07-25 07:35 | MRI Report ---
Reason: POSTERIOR REVERSIBLE ENCEPHALOPATHY SYNDROME Procedure Date: 07/24/2018 Accession Number: [id number] / [id number] Procedure: MRI - Brain W/O CPT Code: FULL RESULT: EXAM: MRI BRAIN WITHOUT CONTRAST EXAM DATE: 07/24/2018 01:04 PM. CLINICAL HISTORY: 67-year-old woman with history of posterior reversible encephalopathy syndrome. COMPARISON: BRAIN W/O 02/21/2017 11:12 AM. TECHNIQUE: Multiplanar, multisequence T1-weighted and fluid-sensitive MR sequences of the brain were performed. Sequences optimized for routine evaluation. Other: None. IV Contrast: None. FINDINGS: Parenchyma: Patchy FLAIR hyperintensity in the cortex and subcortical white matter of the cerebral hemispheres, greatest posteriorly, has resolved since the 02/21/2017 exam. Mild to moderate burden of nonspecific FLAIR hyperintensities in the deep cerebral white matter persists, most consistent with sequelae of chronic small vessel ischemic disease and a common finding in this age group. No evidence of acute infarct or intraparenchymal hemorrhage. Pituitary: Unremarkable. Ventricles and Extra-axial Spaces: Ventricles are symmetric and normal in size for age. Extra-axial spaces are unremarkable. Orbits: Unremarkable. Sinuses: Mild mucosal thickening is present along the floors of the maxillary sinuses. Mastoid air cells are clear. Major Vascular Flow Voids: Intact. IMPRESSION: 1. Patchy FLAIR hyperintensity in the cortex and subcortical white matter of the cerebral hemispheres seen on 02/21/2017 MRI and consistent with PRES has resolved. RADIA
== END 2018-07-24 12:18 | disposition home or self-care (01) ==
LOC: DI 12:17
PROVIDERS: ATTEND Nurse Practitioner
DX: I67.83 Posterior reversible encephalopathy syndrome (principal)
CPT/HCPCS: 70551

== ENCOUNTER 2019-01-22 12:30 | Outpatient (CLI) | payer MEDICARE ==
[2019-01-22 17:56] LABS: ALBUMIN 4.2 g/dL (3.2-5.5); BILIRUBIN,DIRECT 0.1 mg/dL (0.1-0.5); BILIRUBIN,TOTAL 0.9 mg/dL (0.2-1.0); CREATININE 0.4 mg/dL (0.4-1.0); TOTAL PROTEIN 7.2 g/dL (6.7-8.2)
== END 2019-01-22 12:31 | disposition home or self-care (01) ==
LOC: LAB.S 12:30
PROVIDERS: ATTEND Physician Assistant Medical
DX: B35.1 Tinea unguium (principal); Z79.899 Other long term (current) drug therapy
CPT/HCPCS: 36415; 80076; 82565; 84520

== ENCOUNTER 2019-03-19 07:13 | Outpatient (CLI) | payer MEDICARE ==
[2019-03-19 10:00] LABS: BASOPHILS % (AUTO) 0.6 %; EOSINOPHILS # (AUTO) 0.2 10^3/uL (0.0-0.7); HGB - HEMOGLOBIN 13.4 g/dL (12.0-16.0); LYMPHOCYTES # (AUTO) 1.9 10^3/uL (1.5-3.5); LYMPHOCYTES % (AUTO) 35.4 %; MEAN CORPUSCULAR HEMOGLOBIN 29.1 pg (27.0-31.0); MEAN CORPUSCULAR HGB CONC 31.6 g/dL (32.0-36.0); MEAN CORPUSCULAR VOLUME 92.2 fL (81.0-99.0); MONOCYTES # (AUTO) 0.3 10^3/uL (0.0-1.0); MONOCYTES % (AUTO) 6.5 %; NEUTROPHILS # (AUTO) 2.8 10^3/uL (1.5-6.6); NEUTROPHILS % (AUTO) 53.3 %; PLT - PLATELET COUNT 189 10^3/uL (130-450); RED CELL DISTRIBUTION WIDTH 13.8 % (12.0-15.0); WHITE BLOOD COUNT 5.3 x10^3/uL (4.8-10.8)
[2019-03-19 10:38] LABS: ALBUMIN 4.1 g/dL (3.2-5.5); ALBUMIN/GLOBULIN RATIO 1.3 (1.0-2.2); ALKALINE PHOSPHATASE 56 IU/L (42-121); ALT ALANINE AMINOTRANSFERASE 23 IU/L (10-60); AST ASPARTATE AMINOTRANSFERASE 18 IU/L (10-42); BILIRUBIN,TOTAL 0.8 mg/dL (0.2-1.0); BUN - BLOOD UREA NITROGEN 17 mg/dL (6-20); CALCIUM 8.9 mg/dL (8.5-10.3); CARBON DIOXIDE - CO2 26 mmol/L (21-32); CHLORIDE 108 mmol/L (101-111); CHOL/HDL RATIO 3.1 (<4.4); CHOLESTEROL 168 mg/dL; CREATININE 0.4 mg/dL (0.4-1.0); GFR - MDRD 159 (>89); GLUCOSE 125 mg/dL (70-100); HDL CHOLESTEROL 54 mg/dL; LDL CHOLESTEROL,CALCULATED 95 mg/dL; LDL/HDL RATIO 1.8 (<4.4); SODIUM 142 mmol/L (135-145); TOTAL PROTEIN 7.2 g/dL (6.7-8.2); VLDL CHOLESTEROL 19 mg/dL
[2019-03-19 10:43] LABS: HB2 TOTAL 13.3 g/dL; HEMOGLOBIN A1C 0.47 g/dL; HEMOGLOBIN A1C % 5.4 % (4.6-6.2)
== END 2019-03-19 07:14 | disposition home or self-care (01) ==
LOC: LAB.S 07:13
PROVIDERS: ATTEND Registered Nurse
DX: Z13.29 Encounter for screening for other suspected endocrine disorder (principal); I10 Essential (primary) hypertension; E78.5 Hyperlipidemia, unspecified; R73.01 Impaired fasting glucose
CPT/HCPCS: 36415; 80053; 80061; 83036; 83721; 84443; 85025

== ENCOUNTER 2019-08-02 14:35 | Outpatient (CLI) | payer MEDICARE ==
[2019-08-02 20:12] LABS: CREATININE 0.6 mg/dL (0.4-1.0)
== END 2019-08-02 14:36 | disposition home or self-care (01) ==
LOC: LAB.S 14:35
PROVIDERS: ATTEND Psychiatry & Neurology Neurology
DX: I67.83 Posterior reversible encephalopathy syndrome (principal)
CPT/HCPCS: 36415; 82565

== ENCOUNTER 2019-09-24 09:34 | Outpatient (CLI) | payer MEDICARE ==
--- NOTE | 2019-09-25 08:16 | Mammography Report ---
BILATERAL DIGITAL SCREENING MAMMOGRAM 3D/2D: 09/24/2019 CLINICAL: Routine screening. Comparison is made to exams dated: 06/14/2018 mammogram and 10/24/2013 mammogram - [facility]. There are scattered fibroglandular elements in both breasts. No significant masses, calcifications, or other findings are seen in either breast. There has been no significant interval change. IMPRESSION: NEGATIVE There is no mammographic evidence of malignancy. A 1 year screening mammogram is recommended. This exam was interpreted at Station ID: [id number]. NOTE: For mammograms, a report in lay terms will be sent to the patient. Approximately 15% of breast malignancies will not be visualized mammographically. In the management of a palpable breast mass, a negative mammogram must not discourage biopsy of a clinically suspicious lesion. Electronically Signed By: Carlos [email or web address]/[email or web address]:09/24/2019 13:42:24 ACR BI-RADS Category 1: Negative [id number] PARENCHYMAL PATTERN: (A) - The breast(s) demonstrate(s) scattered fibroglandular densities. BI-RADS CATEGORY: (1) - 1 RECOMMENDATION: (ANNUAL) - Recommend routine annual screening mammography. [id number] 1 year screening LATERALITY: (B)
== END 2019-09-24 09:35 | disposition home or self-care (01) ==
LOC: DI 09:34
DX: Z12.31 Encounter for screening mammogram for malignant neoplasm of breast (principal)
CPT/HCPCS: 77063; 77067

== ENCOUNTER 2020-04-07 08:37 | Outpatient (CLI) | payer MEDICARE ==
[2020-04-07 15:02] LABS: BASOPHILS % (AUTO) 0.5 %; EOSINOPHILS # (AUTO) 0.2 10^3/uL (0.0-0.7); HCT - HEMATOCRIT 41.6 % (37.0-47.0); HGB - HEMOGLOBIN 12.9 g/dL (12.0-16.0); LYMPHOCYTES # (AUTO) 1.6 10^3/uL (1.5-3.5); LYMPHOCYTES % (AUTO) 27.7 %; MEAN CORPUSCULAR HEMOGLOBIN 28.8 pg (27.0-31.0); MEAN CORPUSCULAR VOLUME 92.9 fL (81.0-99.0); MEAN PLATELET VOLUME 10.4 fL (7.9-10.8); MONOCYTES # (AUTO) 0.4 10^3/uL (0.0-1.0); MONOCYTES % (AUTO) 6.3 %; NEUTROPHILS # (AUTO) 3.5 10^3/uL (1.5-6.6); NEUTROPHILS % (AUTO) 61.2 %; PLT - PLATELET COUNT 209 10^3/uL (130-450); RED BLOOD COUNT 4.48 10^6/uL (4.20-5.40); RED CELL DISTRIBUTION WIDTH 14.1 % (12.0-15.0); WHITE BLOOD COUNT 5.7 x10^3/uL (4.8-10.8)
[2020-04-07 15:26] LABS: ALBUMIN 4.1 g/dL (3.2-5.5); ALBUMIN/GLOBULIN RATIO 1.5 (1.0-2.2); ALKALINE PHOSPHATASE 70 IU/L (42-121); ALT ALANINE AMINOTRANSFERASE 20 IU/L (10-60); AST ASPARTATE AMINOTRANSFERASE 17 IU/L (10-42); BILIRUBIN,TOTAL 0.5 mg/dL (0.2-1.0); BUN - BLOOD UREA NITROGEN 16 mg/dL (6-20); CARBON DIOXIDE - CO2 26 mmol/L (21-32); CHLORIDE 107 mmol/L (101-111); CHOL/HDL RATIO 2.9 (<4.4); CHOLESTEROL 152 mg/dL; CREATININE 0.4 mg/dL (0.4-1.0); GFR - MDRD 158 (>89); GLUCOSE 125 mg/dL (70-100); HDL CHOLESTEROL 53 mg/dL; LDL CHOLESTEROL,CALCULATED 74 mg/dL; LDL/HDL RATIO 1.4 (<4.4); POTASSIUM 3.7 mmol/L (3.5-5.0); SODIUM 141 mmol/L (135-145); TOTAL PROTEIN 6.9 g/dL (6.7-8.2); TRIGLYCERIDES 124 mg/dL; VLDL CHOLESTEROL 25 mg/dL
[2020-04-07 15:31] LABS: THYROID STIMULATING HORMONE 1.53 uIU/mL (0.34-5.60)
== END 2020-04-07 08:38 | disposition home or self-care (01) ==
LOC: LAB.S 08:37
PROVIDERS: ATTEND Registered Nurse
DX: I10 Essential (primary) hypertension (principal); F32.9 Major depressive disorder, single episode, unspecified; E78.5 Hyperlipidemia, unspecified
CPT/HCPCS: 36415; 80053; 80061; 83721; 84443; 85025

== ENCOUNTER 2020-10-24 16:58 | Outpatient (CLI) | payer MEDICARE | END 2020-10-24 16:59 | disposition critical access hospital (66) | LOC: EMS 16:58 | DX: R56.9 Unspecified convulsions (principal) | CPT/HCPCS: A0425; A0427 ==

== ENCOUNTER 2020-10-24 17:25 | Emergency (ER) | payer MEDICARE ==
--- NOTE | 2020-10-24 17:35 | ED Physician Documentation ---
PD HPI Fall - Stated complaint Stated Complaint: SEIZURES/GLF - History obtained from History obtained from: EMS - Additional information Additional information: 69-year-old woman with history of PRES and stroke with left-sided deficits repscottie crowleyly fell today and then had several episodes of seizure-like activity and is now postictal. Having received 4 mg of Versed on the way here. Blood sugar on the way here was 147. Reportedly full code. History from the patient is nonexistent due to altered mental status. Spoke with Branden by phone: she had been [place] and heard a fall. Pt seemed ok, and fell again. Seemed like she was having a hard time breathing and pt turned purple. She was shaking, perhaps a seizure, just shaking on left but still verbal. Stopped breathing. Then became more responsive, then up and down mental status blackman. Kept rolling over on right side. 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 Psych: Depression Musculoskeletal: Osteoarthritis - Past Surgical History Past Surgical History: Yes General: Appendectomy Ortho: Carpal Tunnel surgery - Present Medications Home Medications: Ambulatory Orders Medication Instructions Recorded Confirmed lisinopriL [Lisinopril] 10 mg PO DAILY 08/14/12 10/24/20 Aspirin 81 mg PO Q2D 12/04/15 04/08/18 Atorvastatin [Lipitor] 40 mg PO QPM 02/21/17 10/24/20 Sertraline [Zoloft] 50 mg PO DAILY 02/21/17 10/24/20 Losartan Potassium 1 tab PO DAILY 10/24/20 10/24/20 - Allergies Allergies/Adverse Reactions: Allergies Allergy/AdvReac Type Severity Reaction Status Date / Time morphine Allergy Intermediate Hives Verified 10/24/20 17:37 Penicillins Allergy Intermediate Rash Verified 10/24/20 17:37 hydrocodone [Hydrocodone] Allergy Mild Itching Verified 10/24/20 17:37 - Social History Does the pt smoke?: No Smoking Status: Never smoker Does the pt drink ETOH?: No Does the pt have substance abuse?: No - Immunizations Immunizations are current?: Yes - POLST Patient has POLST: No POLST Status: Full Code PD ED PE NORMAL - Vitals Vital signs reviewed: Yes - General General: Other (GCS 7, laying on her right side, some purposeful movements.) - HEENT HEENT: PERRL - Neck Neck: Supple, no meningeal sign, No bony TTP - Cardiac Cardiac: RRR, No murmur - Respiratory Respiratory: No respiratory distress, Clear bilaterally - Abdomen Abdomen: Soft, Non tender - Back Back: No CVA TTP, No spinal TTP - Derm Derm: Normal color, Warm and dry - Extremities Extremities: No edema, No calf tenderness / cord - Neuro Eye Opening: To Pain Motor: Localizes to Pain Verbal: None GCS Score: 8 Results - Vitals Vitals: Vital Signs - 24 hr 10/24/20 10/24/20 10/24/20 17:34 20:59 22:36 Temperature 36.5 C Heart Rate 95 97 80 Respiratory 26 H 18 16 Rate Blood Pressure 160/82 H 186/90 H 182/105 H O2 Saturation 99 96 91 L 10/24/20 10/24/20 10/25/20 22:43 23:02 01:00 Temperature Heart Rate 94 84 83 Respiratory 18 16 16 Rate Blood Pressure 169/118 H 164/81 H 104/51 L O2 Saturation 94 96 98 Oxygen O2 Source [] Room air O2 Source Nasal cannula - EKG (time done) 1752 Rate: Rate (enter#) (95) Rhythm: NSR [place]: Normal Intervals: RBBB, Other (LPFB) QRS: Normal Ischemia: Normal ST segments - Labs Labs: Laboratory Tests 10/24/20 10/24/20 10/24/20 17:47 17:47 19:46 WBC 13.6 H RBC 5.40 Hgb 15.5 Hct 49.2 H MCV 91.1 MCH 28.7 MCHC 31.5 L RDW 14.8 Plt Count 292 MPV 9.5 Neut # (Auto) 11.1 H Lymph # (Auto) 1.7 [place] # (Auto) 0.8 Eos # (Auto) 0.0 Baso # (Auto) 0.0 Absolute Nucleated RBC 0.00 Nucleated RBC % 0.0 Sodium 146 H Potassium 3.6 Chloride 105 Carbon Dioxide 30 Anion Gap 11.0 BUN 25 H Creatinine 0.5 Estimated GFR (MDRD) 122 Glucose 154 H Calcium 10.5 H Magnesium 1.7 Total Bilirubin 0.6 AST 20 ALT 25 Alkaline Phosphatase 70 Total Protein 8.0 Albumin 4.5 Globulin 3.5 Albumin/Globulin Ratio 1.3 Urine Color YELLOW Urine Clarity HAZY Urine pH 6.0 Ur Specific [place] >=1.030 H Urine Protein TRACE Urine Glucose (UA) NEGATIVE Urine Ketones NEGATIVE Urine Occult Blood SMALL H Urine Nitrite NEGATIVE Urine Bilirubin NEGATIVE Urine Urobilinogen 0.2 (NORMAL) Ur Leukocyte Esterase NEGATIVE Urine RBC 0-5 Urine WBC 0-3 Ur Squamous Epith Cells MOD Squamous H Urine Bacteria Rare Ur Microscopic Review INDICATED Urine Culture Comments NOT INDICATED Nasal Adenovirus (PCR) Nasal B. parapertussis DNA (PCR) Nasal Coronavir 229E PCR Nasal Coronavir HKU1 PCR Nasal Coronavir NL63 PCR Nasal Coronavir OC43 PCR Nasal Enterovir/Rhinovir PCR Nasal Influenza B PCR Nasal Influenza A PCR Nasal Parainfluen 1 PCR Nasal Parainfluen 2 PCR Nasal Parainfluen 3 PCR Nasal Parainfluen 4 PCR Nasal RSV (PCR) Nasal B.pertussis DNA PCR Nasal C.pneumoniae (PCR) [place] Human Metapneumo PCR Nasal M.pneumoniae (PCR) Nasal SARS-CoV-2 (PCR) Urine Opiates Screen Ur Oxycodone Screen Urine Methadone Screen Ur Propoxyphene Screen Ur Barbiturates Screen Ur Tricyclics Screen Ur Phencyclidine Scrn Ur Amphetamine Screen U Methamphetamines Scrn U Benzodiazepines Scrn Urine Cocaine Screen U Cannabinoids Screen Ethyl Alcohol < 5.0 10/24/20 10/24/20 19:46 22:37 WBC RBC Hgb Hct MCV MCH MCHC RDW Plt Count MPV Neut # (Auto) Lymph # (Auto) [place] # (Auto) Eos # (Auto) Baso # (Auto) Absolute Nucleated RBC Nucleated RBC % Sodium Potassium Chloride Carbon Dioxide Anion Gap BUN Creatinine Estimated GFR (MDRD) Glucose Calcium Magnesium Total Bilirubin AST ALT Alkaline Phosphatase Total Protein Albumin Globulin Albumin/Globulin Ratio Urine Color Urine Clarity Urine pH Ur Specific [place] Urine Protein Urine Glucose (UA) Urine Ketones Urine Occult Blood Urine Nitrite Urine Bilirubin Urine Urobilinogen Ur Leukocyte Esterase Urine RBC Urine WBC Ur Squamous Epith Cells Urine Bacteria Ur Microscopic Review Urine Culture Comments Nasal Adenovirus (PCR) NOT DETECTED Nasal B. parapertussis DNA (PCR) NOT DETECTED Nasal Coronavir 229E PCR NOT DETECTED Nasal Coronavir HKU1 PCR NOT DETECTED Nasal Coronavir NL63 PCR NOT DETECTED Nasal Coronavir OC43 PCR NOT DETECTED Nasal Enterovir/Rhinovir PCR NOT DETECTED Nasal Influenza B PCR NOT DETECTED Nasal Influenza A PCR NOT DETECTED Nasal Parainfluen 1 PCR NOT DETECTED Nasal Parainfluen 2 PCR NOT DETECTED Nasal Parainfluen 3 PCR NOT DETECTED Nasal Parainfluen 4 PCR NOT DETECTED Nasal RSV (PCR) NOT DETECTED Nasal B.pertussis DNA PCR NOT DETECTED Nasal C.pneumoniae (PCR) NOT DETECTED [place] Human Metapneumo PCR NOT DETECTED Nasal M.pneumoniae (PCR) NOT DETECTED Nasal SARS-CoV-2 (PCR) NOT DETECTED Urine Opiates Screen NEGATIVE Ur Oxycodone Screen NEGATIVE Urine Methadone Screen NEGATIVE Ur Propoxyphene Screen NEGATIVE Ur Barbiturates Screen NEGATIVE Ur Tricyclics Screen NEGATIVE Ur Phencyclidine Scrn NEGATIVE Ur Amphetamine Screen NEGATIVE U Methamphetamines Scrn NEGATIVE U Benzodiazepines Scrn NEGATIVE Urine Cocaine Screen NEGATIVE U Cannabinoids Screen POSITIVE H Ethyl Alcohol - Rads (name of study) CT Head Radiology: EMP read contemporaneously (NAD) PD MEDICAL DECISION MAKING - ED course ED course: Previous MR imaging of the head was reviewed. MRI of the head dated September 19, 2013 showing multiple abnormal diffusion hyperintensities in the cerebral hemispheres left greater than right consistent with multiple recent small infarct. Subsequently had another MRI dated February 21, 2017 with bilateral white matter disease with a wide differential. Subsequently had another MRI dated July 24, 2018 showing patchy FLAIR hyperintensity in the cortex and subcortical white matter having resolved. At that point it was felt that the previous MRI was consistent with PRES. 69-year-old woman with potentially focal seizures followed by more generalized seizures based on EMS and family history. She was somnolent on arrival but did improve but still quite confused at shift change. She was trying to drink from the monitor cables which of course yielded no fluid. Trying to get discharge summary from July of last year visit to [facility] and a neurology consult from the [place] [facility] at shift change with significant delays. Just prior to shift change I received a discharge summary from Gracie Joel. She was admitted July 09 of last year and discharged soon for the last year with a diagnosis of press with seizure. Also had staph coagulase-negative bacteremia likely contaminated and elevated troponin with negative echo. Discussed with granddaughter. Patient is intermittent on taking her blood pressure medicines and has not been taking them recently. This may be press. Will load with Ativan and a small dose of labetalol and her usual dose of losartan pending neurology consult. Care to Dr. Alarcon at shift change pending that. Departure - Departure Disposition: 02 Transfer Acute Care Hosp Clinical Impression: Seizure, Posterior reversible encephalopathy syndrome (PRES), Dehydration Condition: Good Discharge Date/Time: 10/25/20 03:18
[2020-10-24 17:54] LABS: BASOPHILS % (AUTO) 0.2 %; HCT - HEMATOCRIT 49.2 % (37.0-47.0); HGB - HEMOGLOBIN 15.5 g/dL (12.0-16.0); LYMPHOCYTES # (AUTO) 1.7 10^3/uL (1.5-3.5); LYMPHOCYTES % (AUTO) 12.2 %; MEAN CORPUSCULAR HEMOGLOBIN 28.7 pg (27.0-31.0); MEAN CORPUSCULAR HGB CONC 31.5 g/dL (32.0-36.0); MEAN CORPUSCULAR VOLUME 91.1 fL (81.0-99.0); MEAN PLATELET VOLUME 9.5 fL (7.9-10.8); MONOCYTES # (AUTO) 0.8 10^3/uL (0.0-1.0); MONOCYTES % (AUTO) 5.5 %; NEUTROPHILS # (AUTO) 11.1 10^3/uL (1.5-6.6); NEUTROPHILS % (AUTO) 81.7 %; PLT - PLATELET COUNT 292 10^3/uL (130-450); RED CELL DISTRIBUTION WIDTH 14.8 % (12.0-15.0); WHITE BLOOD COUNT 13.6 x10^3/uL (4.8-10.8)
[2020-10-24 18:03] LABS: ALBUMIN 4.5 g/dL (3.2-5.5); ALBUMIN/GLOBULIN RATIO 1.3 (1.0-2.2); ALKALINE PHOSPHATASE 70 IU/L (42-121); ALT ALANINE AMINOTRANSFERASE 25 IU/L (10-60); AST ASPARTATE AMINOTRANSFERASE 20 IU/L (10-42); BILIRUBIN,TOTAL 0.6 mg/dL (0.2-1.0); BUN - BLOOD UREA NITROGEN 25 mg/dL (6-20); CALCIUM 10.5 mg/dL (8.5-10.3); CARBON DIOXIDE - CO2 30 mmol/L (21-32); CHLORIDE 105 mmol/L (101-111); CREATININE 0.5 mg/dL (0.4-1.0); ETOH - ETHANOL < 5.0 mg/dL; GFR - MDRD 122 (>89); GLUCOSE 154 mg/dL (70-100); MAGNESIUM 1.7 mg/dL (1.7-2.8); POTASSIUM 3.6 mmol/L (3.5-5.0); SODIUM 146 mmol/L (135-145)
--- NOTE | 2020-10-24 18:28 | CT Report ---
PROCEDURE: HEAD WO INDICATIONS: cva hx with szs TECHNIQUE: Noncontrast 4.5 mm thick angled axial sections acquired from the foramen magnum to the vertex. For r adiation dose reduction, the following was used: automated exposure control, adjustment of mA and/or kV according to patient size. COMPARISON: None. FINDINGS: Image quality: Excellent. CSF spaces: Basal cisterns are patent. No extra-axial fluid collections. Ventricles are normal in size and shape. Brain: No midline shift. No intracranial masses or hemorrhage. Vazquez-white matter interface is norm al. Skull and face: Calvarium and visualized facial bones are intact, without suspicious lesions. Sinuses: Visualized sinuses and mastoids are clear. IMPRESSION: No acute intracranial abnormalityt Reviewed by: Hermann Middleton on 10/24/2020 6:27 PM PDT Approved by: Hermann Middleton on 10/24/2020 6:27 PM PDT Station ID: [id number]
[2020-10-24 19:49] LABS: BILIRUBIN,URINE NEGATIVE (NEGATIVE); GLUCOSE, URINE (UA) NEGATIVE (NEGATIVE); KETONES,URINE (UA) NEGATIVE (NEGATIVE); LEUKOCYTE ESTERASE, URINE NEGATIVE (NEGATIVE); NITRITE,URINE NEGATIVE (NEGATIVE); OCCULT BLOOD,URINE SMALL (NEGATIVE); PROTEIN,URINE TRACE mg/dL (NEGATIVE); UROBILINOGEN,URINE 0.2 (NORMAL) E.U./dL (NORMAL)
[2020-10-24 19:52] LABS: CLARITY,URINE HAZY (CLEAR)
[2020-10-24 19:56] LABS: MUDS CUTOFF CONCENTRATIONS CUTOFF CONC BELOW:
[2020-10-24 20:01] LABS: BACTERIA,URINE Rare /HPF (None Seen); RBC,URINE 0-5 /HPF (0-5); SQUAMOUS EPITHELIAL CELL,UR MOD Squamous (<= Few); WBC,URINE 0-3 /HPF (0-5)
[2020-10-24 20:09] LABS: AMPHETAMINE SCREEN,URINE NEGATIVE (NEGATIVE); BARBITURATE SCREEN,UR NEGATIVE (NEGATIVE); BENZODIAZEPINES SCREEN, URINE NEGATIVE (NEGATIVE); COCAINE SCREEN URINE NEGATIVE (NEGATIVE); METHADONE SCREEN, URINE NEGATIVE (NEGATIVE); METHAMPHETAMINES SCREEN, URINE NEGATIVE (NEGATIVE); OPIATE SCREEN, URINE NEGATIVE (NEGATIVE); OXYCODONE SCREEN, URINE NEGATIVE (NEGATIVE); PROPOXYPHENE SCREEN, URINE NEGATIVE (NEGATIVE); THC CANNABINOID SCREEN, URINE POSITIVE (NEGATIVE); TRICYCLIC ANTIDEPRESSANT,URINE NEGATIVE (NEGATIVE)
[2020-10-24] MEDS ORDERED: LORazepam 2 MG/ML VIAL IVP STA (22:11)
[2020-10-24] MEDS ORDERED: LOSARTAN 50 MG TABLET PO STA (22:15)
[2020-10-24] MEDS ORDERED: LABETALOL 20 MG/4 ML SYRINGE IVP STA (22:19)
[2020-10-24] MEDS ORDERED: SODIUM CHLORIDE 0.9% 1,000 ML IV STA (23:10)
--- NOTE | 2020-10-24 23:13 | ED Physician Documentation ---
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 Psych: Depression Musculoskeletal: Osteoarthritis - Past Surgical History Past Surgical History: Yes General: Appendectomy Ortho: Carpal Tunnel surgery - Present Medications Home Medications: Ambulatory Orders Medication Instructions Recorded Confirmed lisinopriL [Lisinopril] 10 mg PO DAILY 08/14/12 10/24/20 Aspirin 81 mg PO Q2D 12/04/15 04/08/18 Atorvastatin [Lipitor] 40 mg PO QPM 02/21/17 10/24/20 Sertraline [Zoloft] 50 mg PO DAILY 02/21/17 10/24/20 Losartan Potassium 1 tab PO DAILY 10/24/20 10/24/20 - Allergies Allergies/Adverse Reactions: Allergies Allergy/AdvReac Type Severity Reaction Status Date / Time morphine Allergy Intermediate Hives Verified 10/24/20 17:37 Penicillins Allergy Intermediate Rash Verified 10/24/20 17:37 hydrocodone [Hydrocodone] Allergy Mild Itching Verified 10/24/20 17:37 - Social History Does the pt smoke?: No Smoking Status: Never smoker Does the pt drink ETOH?: No Does the pt have substance abuse?: No - Immunizations Immunizations are current?: Yes - POLST Patient has POLST: No POLST Status: Full Code Results - Vitals Vitals: Vital Signs - 24 hr 10/24/20 10/24/20 10/24/20 17:34 20:59 22:36 Temperature 36.5 C Heart Rate 95 97 80 Respiratory 26 H 18 16 Rate Blood Pressure 160/82 H 186/90 H 182/105 H O2 Saturation 99 96 91 L 10/24/20 10/24/20 10/25/20 22:43 23:02 01:00 Temperature Heart Rate 94 84 83 Respiratory 18 16 16 Rate Blood Pressure 169/118 H 164/81 H 104/51 L O2 Saturation 94 96 98 Oxygen O2 Source [] Room air O2 Source Nasal cannula - Labs Labs: Laboratory Tests 10/24/20 10/24/20 10/24/20 17:47 17:47 19:46 WBC 13.6 H RBC 5.40 Hgb 15.5 Hct 49.2 H MCV 91.1 MCH 28.7 MCHC 31.5 L RDW 14.8 Plt Count 292 MPV 9.5 Neut # (Auto) 11.1 H Lymph # (Auto) 1.7 [place] # (Auto) 0.8 Eos # (Auto) 0.0 Baso # (Auto) 0.0 Absolute Nucleated RBC 0.00 Nucleated RBC % 0.0 Sodium 146 H Potassium 3.6 Chloride 105 Carbon Dioxide 30 Anion Gap 11.0 BUN 25 H Creatinine 0.5 Estimated GFR (MDRD) 122 Glucose 154 H Calcium 10.5 H Magnesium 1.7 Total Bilirubin 0.6 AST 20 ALT 25 Alkaline Phosphatase 70 Total Protein 8.0 Albumin 4.5 Globulin 3.5 Albumin/Globulin Ratio 1.3 Urine Color YELLOW Urine Clarity HAZY Urine pH 6.0 Ur Specific [place] >=1.030 H Urine Protein TRACE Urine Glucose (UA) NEGATIVE Urine Ketones NEGATIVE Urine Occult Blood SMALL H Urine Nitrite NEGATIVE Urine Bilirubin NEGATIVE Urine Urobilinogen 0.2 (NORMAL) Ur Leukocyte Esterase NEGATIVE Urine RBC 0-5 Urine WBC 0-3 Ur Squamous Epith Cells MOD Squamous H Urine Bacteria Rare Ur Microscopic Review INDICATED Urine Culture Comments NOT INDICATED Nasal Adenovirus (PCR) Nasal B. parapertussis DNA (PCR) Nasal Coronavir 229E PCR Nasal Coronavir HKU1 PCR Nasal Coronavir NL63 PCR Nasal Coronavir OC43 PCR Nasal Enterovir/Rhinovir PCR Nasal Influenza B PCR Nasal Influenza A PCR Nasal Parainfluen 1 PCR Nasal Parainfluen 2 PCR Nasal Parainfluen 3 PCR Nasal Parainfluen 4 PCR Nasal RSV (PCR) Nasal B.pertussis DNA PCR Nasal C.pneumoniae (PCR) [place] Human Metapneumo PCR Nasal M.pneumoniae (PCR) Nasal SARS-CoV-2 (PCR) Urine Opiates Screen Ur Oxycodone Screen Urine Methadone Screen Ur Propoxyphene Screen Ur Barbiturates Screen Ur Tricyclics Screen Ur Phencyclidine Scrn Ur Amphetamine Screen U Methamphetamines Scrn U Benzodiazepines Scrn Urine Cocaine Screen U Cannabinoids Screen Ethyl Alcohol < 5.0 10/24/20 10/24/20 19:46 22:37 WBC RBC Hgb Hct MCV MCH MCHC RDW Plt Count MPV Neut # (Auto) Lymph # (Auto) [place] # (Auto) Eos # (Auto) Baso # (Auto) Absolute Nucleated RBC Nucleated RBC % Sodium Potassium Chloride Carbon Dioxide Anion Gap BUN Creatinine Estimated GFR (MDRD) Glucose Calcium Magnesium Total Bilirubin AST ALT Alkaline Phosphatase Total Protein Albumin Globulin Albumin/Globulin Ratio Urine Color Urine Clarity Urine pH Ur Specific [place] Urine Protein Urine Glucose (UA) Urine Ketones Urine Occult Blood Urine Nitrite Urine Bilirubin Urine Urobilinogen Ur Leukocyte Esterase Urine RBC Urine WBC Ur Squamous Epith Cells Urine Bacteria Ur Microscopic Review Urine Culture Comments Nasal Adenovirus (PCR) NOT DETECTED Nasal B. parapertussis DNA (PCR) NOT DETECTED Nasal Coronavir 229E PCR NOT DETECTED Nasal Coronavir HKU1 PCR NOT DETECTED Nasal Coronavir NL63 PCR NOT DETECTED Nasal Coronavir OC43 PCR NOT DETECTED Nasal Enterovir/Rhinovir PCR NOT DETECTED Nasal Influenza B PCR NOT DETECTED Nasal Influenza A PCR NOT DETECTED Nasal Parainfluen 1 PCR NOT DETECTED Nasal Parainfluen 2 PCR NOT DETECTED Nasal Parainfluen 3 PCR NOT DETECTED Nasal Parainfluen 4 PCR NOT DETECTED Nasal RSV (PCR) NOT DETECTED Nasal B.pertussis DNA PCR NOT DETECTED Nasal C.pneumoniae (PCR) NOT DETECTED [place] Human Metapneumo PCR NOT DETECTED Nasal M.pneumoniae (PCR) NOT DETECTED Nasal SARS-CoV-2 (PCR) NOT DETECTED Urine Opiates Screen NEGATIVE Ur Oxycodone Screen NEGATIVE Urine Methadone Screen NEGATIVE Ur Propoxyphene Screen NEGATIVE Ur Barbiturates Screen NEGATIVE Ur Tricyclics Screen NEGATIVE Ur Phencyclidine Scrn NEGATIVE Ur Amphetamine Screen NEGATIVE U Methamphetamines Scrn NEGATIVE U Benzodiazepines Scrn NEGATIVE Urine Cocaine Screen NEGATIVE U Cannabinoids Screen POSITIVE H Ethyl Alcohol Procedures - IVC sono (time) 2305 Bedside IVC sono: IVC measures (cm) (0.77), IVC collapsed c insp (cm) (complete), Significant dehydration (est >2 liter deficit) PD MEDICAL DECISION MAKING - ED course Complexity details: reviewed old records, reviewed results, re-evaluated patient, considered differential ED course: 69 y/o female with history of PRES endorsed to me by Dr. Stanley at shift change has had another episode today consistent with PRES and we have contacted the neurologist Dr. Treadwell at [facility] and she indicates transfer is indicated. We did find the patient was dehydrated on interrogation of the IVC and she has been given saline. Her pressure has been well controlled with labetalol and cozaar given in the ED. She left the ED in improved condition. Departure - Departure Disposition: 02 Transfer Acute Care Hosp Clinical Impression: Seizure, Posterior reversible encephalopathy syndrome (PRES), Dehydration Condition: Good Discharge Date/Time: 10/25/20 03:18
[2020-10-25 00:27] LABS: B. PARAPERTUSSIS- RESP PCR PAN NOT DETECTED; B. PERTUSSIS- RESP PCR PANEL NOT DETECTED; C. PNEUMONIAE- RESP PCR PANEL NOT DETECTED; CORONAVIRUS 229E-RESP PCR NOT DETECTED; CORONAVIRUS HKU1-RESP PCR NOT DETECTED; CORONAVIRUS NL63-RESP PCR NOT DETECTED; CORONAVIRUS OC43-RESP PCR NOT DETECTED; HUMAN METAPNEUMOVIRUS NOT DETECTED; INFLUENZA A- RESP PCR PANEL NOT DETECTED; INFLUENZA B - RESP PCR PANEL NOT DETECTED; M. PNEUMONIAE- RESP PCR PANEL NOT DETECTED; PARAINFLUENZA VIRUS 1 NOT DETECTED; PARAINFLUENZA VIRUS 2 NOT DETECTED; PARAINFLUENZA VIRUS 3 NOT DETECTED; PARAINFLUENZA VIRUS 4 NOT DETECTED; RHINOVIRUS/ENTEROVIRUS NOT DETECTED; RSV- RESP PCR PANEL NOT DETECTED; SARS-CoV-2 -RESP PCR PANEL NOT DETECTED
[2020-10-25 01:22] VITALS: BP 104/51
== END 2020-10-25 03:18 | disposition short-term general hospital (02) ==
LOC: EDUNIT# → ED 17:25
DX: R56.9 Unspecified convulsions (principal); I67.83 Posterior reversible encephalopathy syndrome; E86.0 Dehydration; I69.354 Hemiplegia and hemiparesis following cerebral infarction affecting left non-dominant side; I10 Essential (primary) hypertension; Z20.822 Contact with and (suspected) exposure to COVID-19
CPT/HCPCS: 36415; 70450; 80053; 80306; 81001; 83735; 85025; 87631; 93005; 96374; 99285; A9270; G0480; J2060; 0202U; 80320; 81003; 87086

== ENCOUNTER 2020-10-25 03:22 | Outpatient (CLI) | payer MEDICARE | END 2020-10-25 03:23 | disposition short-term general hospital (02) | LOC: EMS 03:22 | PROVIDERS: ATTEND Emergency Medicine | DX: I67.83 Posterior reversible encephalopathy syndrome (principal); R56.9 Unspecified convulsions | CPT/HCPCS: A0425; A0428 ==

== ENCOUNTER 2021-06-22 16:36 | Outpatient (CLI) | payer MEDICARE | END 2021-06-22 16:37 | disposition critical access hospital (66) | LOC: EMS 16:36 | DX: R10.11 Right upper quadrant pain (principal); R50.9 Fever, unspecified; R41.0 Disorientation, unspecified; R11.0 Nausea | CPT/HCPCS: A0425; A0427 ==

== ENCOUNTER 2021-06-22 16:41 | Inpatient (IN) | payer MEDICARE ==
--- NOTE | 2021-06-22 16:46 | ED Physician Documentation ---
PD HPI ABD PAIN - Stated complaint Stated Complaint: ABD PX/FEVER - History obtained from History obtained from: Patient - Additional information Additional information: 70-year-old woman with history of stroke and MA ES presents with abdominal pain starting at 730 yesterday morning. She went to clinic today where she was noted to be febrile at 100.5. She had diarrhea yesterday better today. She has not been nauseous with this. She does have a runny nose. She has a history of remote appendectomy. She received fentanyl on route and her pain is much better now. 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 Psych: Depression Musculoskeletal: Osteoarthritis - Past Surgical History Past Surgical History: Yes General: Appendectomy Ortho: Carpal Tunnel surgery - Present Medications Home Medications: Ambulatory Orders Medication Instructions Recorded Confirmed lisinopriL [Lisinopril] 10 mg PO DAILY 08/14/12 10/24/20 Aspirin 81 mg PO Q2D 12/04/15 04/08/18 Atorvastatin [Lipitor] 40 mg PO QPM 02/21/17 10/24/20 Sertraline [Zoloft] 50 mg PO DAILY 02/21/17 10/24/20 Losartan Potassium 1 tab PO DAILY 10/24/20 10/24/20 - Allergies Allergies/Adverse Reactions: Allergies Allergy/AdvReac Type Severity Reaction Status Date / Time morphine Allergy Intermediate Hives Verified 06/22/21 16:53 Penicillins Allergy Intermediate Rash Verified 06/22/21 16:53 hydrocodone [Hydrocodone] Allergy Mild Itching Verified 06/22/21 16:53 - Social History Does the pt smoke?: No Smoking Status: Never smoker Does the pt drink ETOH?: No Does the pt have substance abuse?: No - Immunizations Immunizations are current?: Yes - POLST Patient has POLST: No POLST Status: Full Code PD ED PE NORMAL - Vitals Vital signs reviewed: Yes - General General: Alert and oriented X 3, No acute distress - HEENT HEENT: PERRL, EOMI - Neck Neck: Supple, no meningeal sign, No bony TTP - Cardiac Cardiac: RRR, No murmur - Respiratory Respiratory: No respiratory distress, Clear bilaterally - Abdomen Abdomen: Normal bowel sounds, Soft, Other (Mild upper abdominal tenderness without surgical signs) - Back Back: No CVA TTP, No spinal TTP - Derm Derm: Normal color, Warm and dry - Extremities Extremities: No edema, No calf tenderness / cord - Neuro Neuro: Alert and oriented X 3, Normal speech Results - Vitals Vitals: Vital Signs - 24 hr 06/22/21 06/22/21 06/22/21 16:50 18:54 20:00 Temperature 36.7 C 37.8 C 37.7 C Heart Rate 101 H 89 85 Respiratory 18 18 16 Rate Blood Pressure 123/80 118/59 L 171/85 H O2 Saturation 94 95 93 06/22/21 21:49 Temperature Heart Rate 92 Respiratory 15 Rate Blood Pressure 131/83 H O2 Saturation 92 Oxygen O2 Source [Without Activity] Room air O2 Source Room air - Labs Labs: Laboratory Tests 06/22/21 06/22/21 06/22/21 16:52 16:52 17:00 WBC 18.7 H RBC 4.85 Hgb 14.3 Hct 43.2 MCV 89.1 MCH 29.5 MCHC 33.1 RDW 14.6 Plt Count 311 MPV 10.2 Neut # (Auto) 15.6 H Lymph # (Auto) 2.0 [place] # (Auto) 1.1 H Eos # (Auto) 0.0 Baso # (Auto) 0.0 Absolute Nucleated RBC 0.00 Nucleated RBC % 0.0 Sodium 142 Potassium 3.4 L Chloride 103 Carbon Dioxide 25 Anion Gap 14.0 H BUN 28 H Creatinine 0.6 Estimated GFR (MDRD) 99 Glucose 162 H Calcium 10.6 H Total Bilirubin 0.6 AST 30 ALT 26 Alkaline Phosphatase 55 Total Protein 7.7 Albumin 4.6 Globulin 3.1 Albumin/Globulin Ratio 1.5 Lipase 32 Urine Color Urine Clarity Urine pH Ur Specific [place] Urine Protein Urine Glucose (UA) Urine Ketones Urine Occult Blood Urine Nitrite Urine Bilirubin Urine Urobilinogen Ur Leukocyte Esterase Urine RBC Urine WBC Ur Squamous Epith Cells Urine Bacteria Urine Mucus Ur Microscopic Review Urine Culture Comments Nasal Adenovirus (PCR) NOT DETECTED Nasal B. parapertussis DNA (PCR) NOT DETECTED Nasal Coronavir 229E PCR NOT DETECTED Nasal Coronavir HKU1 PCR NOT DETECTED Nasal Coronavir NL63 PCR NOT DETECTED Nasal Coronavir OC43 PCR NOT DETECTED Nasal Enterovir/Rhinovir PCR NOT DETECTED Nasal Influenza B PCR NOT DETECTED Nasal Influenza A PCR NOT DETECTED Nasal Parainfluen 1 PCR NOT DETECTED Nasal Parainfluen 2 PCR NOT DETECTED Nasal Parainfluen 3 PCR NOT DETECTED Nasal Parainfluen 4 PCR NOT DETECTED Nasal RSV (PCR) NOT DETECTED Nasal B.pertussis DNA PCR NOT DETECTED Nasal C.pneumoniae (PCR) NOT DETECTED [place] Human Metapneumo PCR NOT DETECTED Nasal M.pneumoniae (PCR) NOT DETECTED Nasal SARS-CoV-2 (PCR) NOT DETECTED 06/22/21 17:06 WBC RBC Hgb Hct MCV MCH MCHC RDW Plt Count MPV Neut # (Auto) Lymph # (Auto) [place] # (Auto) Eos # (Auto) Baso # (Auto) Absolute Nucleated RBC Nucleated RBC % Sodium Potassium Chloride Carbon Dioxide Anion Gap BUN Creatinine Estimated GFR (MDRD) Glucose Calcium Total Bilirubin AST ALT Alkaline Phosphatase Total Protein Albumin Globulin Albumin/Globulin Ratio Lipase Urine Color YELLOW Urine Clarity CLOUDY Urine pH 6.0 Ur Specific [place] >=1.030 H Urine Protein >=300 H Urine Glucose (UA) NEGATIVE Urine Ketones 15 H Urine Occult Blood TRACE-INTA Urine Nitrite NEGATIVE Urine Bilirubin NEGATIVE Urine Urobilinogen 0.2 (NORMAL) Ur Leukocyte Esterase NEGATIVE Urine RBC 0-5 Urine WBC 4-5 Ur Squamous Epith Cells MANY Squamous H Urine Bacteria Many H Urine Mucus Marked Strands Ur Microscopic Review INDICATED Urine Culture Comments NOT INDICATED Nasal Adenovirus (PCR) Nasal B. parapertussis DNA (PCR) Nasal Coronavir 229E PCR Nasal Coronavir HKU1 PCR Nasal Coronavir NL63 PCR Nasal Coronavir OC43 PCR Nasal Enterovir/Rhinovir PCR Nasal Influenza B PCR Nasal Influenza A PCR Nasal Parainfluen 1 PCR Nasal Parainfluen 2 PCR Nasal Parainfluen 3 PCR Nasal Parainfluen 4 PCR Nasal RSV (PCR) Nasal B.pertussis DNA PCR Nasal C.pneumoniae (PCR) [place] Human Metapneumo PCR Nasal M.pneumoniae (PCR) Nasal SARS-CoV-2 (PCR) PD MEDICAL DECISION MAKING - ED course ED course: 70-year-old woman presents with abdominal pain and fever. Work-up showing likely pyelonephritis. Her urine was not too impressive but CT showing perinephric fat stranding. Difficult to get a hold of her symptoms while in the department. Despite divided doses of pain and nausea medicine, still unable to keep down fluids here. Spoke with Dr. Hartley for admission at 10:02 PM. Departure - Departure Disposition: 66 [facility] DC/[facility] Clinical Impression: Pyelonephritis Condition: Stable
[2021-06-22] MEDS ORDERED: IOVERSOL 320 100 ML VIAL IVP ONE (17:00)
[2021-06-22 17:02] LABS: BASOPHILS % (AUTO) 0.2 %; EOSINOPHILS % (AUTO) 0.1 %; HCT - HEMATOCRIT 43.2 % (37.0-47.0); HGB - HEMOGLOBIN 14.3 g/dL (12.0-16.0); LYMPHOCYTES % (AUTO) 10.4 %; MEAN CORPUSCULAR HEMOGLOBIN 29.5 pg (27.0-31.0); MEAN CORPUSCULAR HGB CONC 33.1 g/dL (32.0-36.0); MEAN CORPUSCULAR VOLUME 89.1 fL (81.0-99.0); MEAN PLATELET VOLUME 10.2 fL (7.9-10.8); MONOCYTES # (AUTO) 1.1 10^3/uL (0.0-1.0); MONOCYTES % (AUTO) 5.7 %; NEUTROPHILS # (AUTO) 15.6 10^3/uL (1.5-6.6); NEUTROPHILS % (AUTO) 83.2 %; PLT - PLATELET COUNT 311 10^3/uL (130-450); RED BLOOD COUNT 4.85 10^6/uL (4.20-5.40); RED CELL DISTRIBUTION WIDTH 14.6 % (12.0-15.0); WHITE BLOOD COUNT 18.7 x10^3/uL (4.8-10.8)
[2021-06-22 17:11] LABS: ALBUMIN 4.6 g/dL (3.2-5.5); ALBUMIN/GLOBULIN RATIO 1.5 (1.0-2.2); BILIRUBIN,TOTAL 0.6 mg/dL (0.2-1.0); CALCIUM 10.6 mg/dL (8.5-10.3); CREATININE 0.6 mg/dL (0.4-1.0); POTASSIUM 3.4 mmol/L (3.5-5.0); TOTAL PROTEIN 7.7 g/dL (6.7-8.2)
--- NOTE | 2021-06-22 17:16 | XRAY Report ---
PROCEDURE: Chest 1 View X-Ray INDICATIONS: fever TECHNIQUE: One view of the chest was acquired. COMPARISON: None FINDINGS: Surgical changes and devices: None. Lungs and pleura: No pleural effusions or pneumothorax. Lungs are clear. Mediastinum: Mediastinal contours appear normal. Heart size is normal. Bones and chest wall: No suspicious bony lesions. Overlying soft tissues appear unremarkable. IMPRESSION: No acute pulmonary process. Reviewed by: Marisa Fleming MD on 06/22/2021 5:15 PM PDT Approved by: Marisa Fleming MD on 06/22/2021 5:15 PM PDT Station ID: [id number]
[2021-06-22 17:25] LABS: GLUCOSE, URINE (UA) NEGATIVE (NEGATIVE); KETONES,URINE (UA) 15 mg/dL (NEGATIVE); LEUKOCYTE ESTERASE, URINE NEGATIVE (NEGATIVE); NITRITE,URINE NEGATIVE (NEGATIVE); OCCULT BLOOD,URINE TRACE-INTA (NEGATIVE); PROTEIN,URINE >=300 mg/dL (NEGATIVE); UROBILINOGEN,URINE 0.2 (NORMAL) E.U./dL (NORMAL)
[2021-06-22 17:35] LABS: BACTERIA,URINE Many /HPF (None Seen); BILIRUBIN,URINE NEGATIVE (NEGATIVE); CLARITY,URINE CLOUDY (CLEAR); ICTOTEST,URINE NEGATIVE; MUCUS,URINE Marked Strands; RBC,URINE 0-5 /HPF (0-5); SQUAMOUS EPITHELIAL CELL,UR MANY Squamous (<= Few)
[2021-06-22 18:05] LABS: B. PARAPERTUSSIS- RESP PCR PAN NOT DETECTED; B. PERTUSSIS- RESP PCR PANEL NOT DETECTED; C. PNEUMONIAE- RESP PCR PANEL NOT DETECTED; CORONAVIRUS 229E-RESP PCR NOT DETECTED; CORONAVIRUS HKU1-RESP PCR NOT DETECTED; CORONAVIRUS NL63-RESP PCR NOT DETECTED; CORONAVIRUS OC43-RESP PCR NOT DETECTED; HUMAN METAPNEUMOVIRUS NOT DETECTED; INFLUENZA A- RESP PCR PANEL NOT DETECTED; INFLUENZA B - RESP PCR PANEL NOT DETECTED; PARAINFLUENZA VIRUS 1 NOT DETECTED; PARAINFLUENZA VIRUS 2 NOT DETECTED; PARAINFLUENZA VIRUS 3 NOT DETECTED; PARAINFLUENZA VIRUS 4 NOT DETECTED; RHINOVIRUS/ENTEROVIRUS NOT DETECTED; RSV- RESP PCR PANEL NOT DETECTED; SARS-CoV-2 -RESP PCR PANEL NOT DETECTED
[2021-06-22 18:06] LABS: M. PNEUMONIAE- RESP PCR PANEL NOT DETECTED
--- NOTE | 2021-06-22 19:06 | CT Report ---
PROCEDURE: CT abdomen pelvis with contrast INDICATIONS: IV only, abd pain CONTRAST: IV CONTRAST: Optiray 320 ml: 100 PO CONTRAST: *NO PO CONTRAST TECHNIQUE: After the administration of contrast, 5 mm thick sections acquired from the diaphragms to the sym physis. 5 mm thick coronal and sagittal reformats were acquired. For radiation dose reduction, the following was used: automated exposure control, adjustment of mA and/or kV according to patient size . COMPARISON: None. FINDINGS: Image quality: Excellent. ABDOMEN: Lung bases: Lung bases are clear. Heart size is normal. Solid organs: Liver and spleen are normal in size and enhancement. Gallbladder unremarkable. Bilia ry system is non dilated. Pancreas enhances normally. No adrenal nodules. Kidneys demonstrate norm al size and enhancement, without hydronephrosis. Mild bilateral perinephric stranding present without hydronephrosis. Peritoneum and bowel: Bowel loops demonstrate normal wall thickness and caliber. No free fluid or a ir. Multiple diverticula arise from the sigmoid colon without evidence of diverticulitis. Nodes and vessels: No retroperitoneal or mesenteric adenopathy by size criteria. Aorta and inferior vena cava are normal in size. Atherosclerotic calcification of the abdominal aorta without evidence of aneurysm. Miscellaneous: No ventral hernias. PELVIS: Genitourinary: Bladder wall thickness is normal. Miscellaneous: No inguinal hernias or adenopathy. Bones: No suspicious bony lesions. No vertebral body compression fractures. Incidental left glutea l intramuscular lipoma. Degenerative disc disease and arthropathy present in the lower lumbar spine IMPRESSION: 1. Nonspecific bilateral perinephric fat stranding probably reflects senescent change, but could refl ect early pyelonephritis in the proper clinical setting. 2. Sigmoid diverticulosis without evidence of diverticulitis. Reviewed by: Jony Lundberg MD on 06/22/2021 6:04 PM HERMINIO Approved by: Jony Lundberg MD on 06/22/2021 6:04 PM AKDT Station ID: [id number]
[2021-06-22] MEDS ORDERED: cefTRIAXone 1 GM in SODIUM CHLORIDE 0.9% MINIBAG 100 ML IV STA (19:33)
[2021-06-22] MEDS ORDERED: ONDANSETRON 4 MG/2 ML VIAL IVP STA (19:33)
[2021-06-22] MEDS ORDERED: fentaNYL 100 MCG/2 ML VIAL IVP STA ×2 (19:38→20:58)
[2021-06-22] MEDS ORDERED: cefTRIAXone 1 GM VIAL ONE (19:52)
[2021-06-22] MEDS ORDERED: PROCHLORPERAZINE 10 MG/2 ML VIAL IVP STA (20:58)
[2021-06-22] MEDS ORDERED: HYDROmorphone 0.5 MG/0.5 ML SYRINGE IVP PRN (22:03)
[2021-06-22] MEDS ORDERED: SODIUM CHLORIDE FLUSH 0.9% 10 ML SYRINGE IVP PRN (22:03)
[2021-06-22] MEDS ORDERED: ACETAMINOPHEN 325 MG TABLET PO PRN (22:03)
--- NOTE | 2021-06-22 22:09 | HISTORY & PHYSICAL EXAMINATION ---
Chief Complaint - Chief Complaint Chief Complaint: abdominal pain, fever History of Present Illness - Admitted From Admitted From:: [facility] ED - History Obtained From Records Reviewed: yes History obtained from: patient and records - History of Present Illness HPI Comment/Other: Patient is a 70-year-old female who presented to the ED with complaint of abdominal pain located around the umbilicus. Symptoms started about 2 days ago. It is described as a nonradiating aching pain. She went to the urgent care clinic and was advised to come to the emergency department after it was noted she had a fever. In the ED work-up included a urine analysis which contained many bacteria. She also had a CT scan of the abdomen pelvis which showed perinephric fat stranding. Her CBC showed a white blood cell count of 18. As a result she was presented for admission for further treatment. She denied chest pain, dyspnea. She reported nausea but no vomiting and also reported fever and chills. History - Past Medical History Cardiovascular: reports: Hypertension, High cholesterol Respiratory: reports: None Neuro: reports: CVA GI: reports: None [employer]OVERST[employer] ATT[employer]ER: reports: None : reports: Frequency Psych: reports: Depression Musculoskeletal: reports: Osteoarthritis MRSA Hx?: No - Past Surgical History General: reports: Appendectomy Ortho: reports: Carpal Tunnel surgery - Family & Social History Family History: Mother: , Diabetes, Type 2, Father: , CAD, Hyperlipidemia, Brother: , CAD, Hyperlipidemia, Hypertension, [place] Social History Notes: She lives at home with her and granddaughter.-. She smoked 1 pack of cigarettes a day for many years with intermittent periods where she stopped. She has history of drinking 3 to 4 glasses of wine a day on average although she will go through periods where she does not drink alcohol on some days. She uses marijuana. - Substance History Use: Uses substance without health or social issues: Alcohol - POLST Patient has POLST: No POLST Status: Full Code Meds/Allgy - Home Medications Home Medications: Ambulatory Orders Medication Instructions Recorded Confirmed lisinopriL [Lisinopril] 10 mg PO DAILY 08/14/12 10/24/20 Aspirin 81 mg PO Q2D 12/04/15 04/08/18 Atorvastatin [Lipitor] 40 mg PO QPM 02/21/17 10/24/20 Sertraline [Zoloft] 50 mg PO DAILY 02/21/17 10/24/20 Losartan Potassium 1 tab PO DAILY 10/24/20 10/24/20 - Allergies Allergies/Adverse Reactions: Allergies Allergy/AdvReac Type Severity Reaction Status Date / Time morphine Allergy Intermediate Hives Verified 06/22/21 16:53 Penicillins Allergy Intermediate Rash Verified 06/22/21 16:53 hydrocodone [Hydrocodone] Allergy Mild Itching Verified 06/22/21 16:53 Review of Systems - Constitutional Constitutional: reports: Fever - Eyes Eyes: denies: Pain, Vision loss - Ears, Nose & Throat Ears, Nose & Throat: denies: Ear pain, Vertigo, Sore throat - Cardiovascular Cariovascular: denies: Irregular heart rate, Chest pain, Edema, Lightheadedness, Syncope, Exertional dyspnea - Respiratory Respiratory: denies: Wheezing, SOB at rest, SOB with exertion - Gastrointestinal Gastrointestinal: reports: Abdominal pain, Nausea. denies: Abdominal distention, Constipation, Vomiting, Coffee grounds emesis, Reflux/heartburn - Genitourinary Genitourinary: denies: Dysuria, Flank pain - Musculoskeletal Musculoskeletal: denies: Muscle pain, Back pain, Muscle aches - Integumentary Integumentary: denies: Rash, Lesions - Neurological Neurological: denies: General weakness, Focal weakness, Headache, Dizziness - Psychiatric Psychiatric: denies: Depression, Anxiety - Endocrine Endocrine: denies: Polyuria, Polydypsia - Hematologic/Lymphatic Hematologic/Lymphatic: denies: Anemia, Bruising, Petechiae Prior Level of Functionality: Patient is normally independent of activities of daily living. Exam - Vital Signs Vital Signs: Vital Signs x48h Temp Pulse Resp BP Pulse Ox 06/22/21 21:49 92 15 131/83 H 92 06/22/21 20:00 37.7 C 85 16 171/85 H 93 06/22/21 18:54 37.8 C 89 18 118/59 L 95 06/22/21 16:50 36.7 C 101 H 18 123/80 94 - Physical Exam General Appearance: positive: Alert, Moderate distress Eyes Bilateral: positive: PERRL, EOMI ENT: positive: No signs of dehydration Neck: positive: No JVD, Trachea midline Respiratory: positive: Chest non-tender, No respiratory distress, Breath sounds nml. negative: Wheezes, Rales, Rhonchi Cardiovascular: positive: Regular rate & rhythm, No murmur Abdomen: positive: Nml bowel sounds, Tenderness. negative: Guarding, Rebound Back: positive: Nml inspection Skin: positive: Color nml, No rash, Warm, Dry Extremities: positive: Non-tender, Full ROM, Nml appearance Neurologic/Psychiatric: positive: Oriented x3, Mood/affect nml Conclusion/Plan - Problem List (1) Pyelonephritis Conclusion/Plan: Patient had a WBC of 18.7. Urine was cloudy. Urine analysis showed many bacteria. CT of the abdomen/pelvis showed nonspecific bilateral perinephric fat stranding. Blood cultures were drawn. Urine culture pending. Patient was given Rocephin 1 g IV. Will continue Rocephin 2 g IV daily in the morning. (2) Hypertension Conclusion/Plan: Will resume patient's losartan once verified. (3) Hyperlipidemia Conclusion/Plan: On atorvastatin (4) Depression Conclusion/Plan: On sertraline - Lab Results Fish Bones: 06/22/21 16:52 06/22/21 16:52 Core Measures - Anticipated LOS I expect patient to be DC'd or transferred within 96 hours.: Yes - DVT/VTE - Prophylaxis VTE/DVT Device ordered at admit?: Yes
[2021-06-22] MEDS: SODIUM CHLORIDE 0.9% 1,000 ML IV SCH (23:31)
[2021-06-22] MEDS: SODIUM CHLORIDE FLUSH 0.9% 10 ML SYRINGE IVP SCH (23:32)
[2021-06-23] MEDS: ONDANSETRON 4 MG/2 ML VIAL IVP PRN ×2 (02:38→16:43)
[2021-06-23 05:51] LABS: BASOPHILS % (AUTO) 0.2 %; HGB - HEMOGLOBIN 13.7 g/dL (12.0-16.0); LYMPHOCYTES % (AUTO) 12.3 %; MEAN CORPUSCULAR HEMOGLOBIN 29.3 pg (27.0-31.0); MEAN CORPUSCULAR HGB CONC 32.6 g/dL (32.0-36.0); MEAN CORPUSCULAR VOLUME 89.9 fL (81.0-99.0); MEAN PLATELET VOLUME 9.7 fL (7.9-10.8); MONOCYTES # (AUTO) 0.9 10^3/uL (0.0-1.0); MONOCYTES % (AUTO) 5.3 %; NEUTROPHILS # (AUTO) 13.6 10^3/uL (1.5-6.6); NEUTROPHILS % (AUTO) 81.8 %; PLT - PLATELET COUNT 264 10^3/uL (130-450); RED BLOOD COUNT 4.67 10^6/uL (4.20-5.40); RED CELL DISTRIBUTION WIDTH 14.8 % (12.0-15.0); WHITE BLOOD COUNT 16.6 x10^3/uL (4.8-10.8)
[2021-06-23 06:00] LABS: CALCIUM 9.2 mg/dL (8.5-10.3); CREATININE 0.5 mg/dL (0.4-1.0); POTASSIUM 3.2 mmol/L (3.5-5.0)
[2021-06-23] MEDS ORDERED: POTASSIUM CHLORIDE 20 MEQ TABLET PO ONE (08:25)
[2021-06-23] MEDS: SODIUM CHLORIDE 0.9% 1,000 ML IV SCH (09:09)
[2021-06-23] MEDS: cefTRIAXone 2 GM in SODIUM CHLORIDE 0.9% MINIBAG 100 ML IV SCH (09:10)
[2021-06-23] MEDS: ENOXAPARIN 40 MG/0.4 ML SYRINGE SUBQ SCH (09:18)
[2021-06-23] MEDS: lisinopriL 20 MG TABLET PO SCH (09:18)
[2021-06-23] MEDS: oxyCODONE 5 MG TABLET PO PRN (09:19)
--- NOTE | 2021-06-23 10:51 | PROVIDER PROGRESS NOTE ---
Assessment/Plan - Problem List (1) Sepsis Assessment/Plan: 06/23 Patient has low degree 100.5 at clinic,hot and sweating, elevated WBC, N/V/abdominal pain, CT reveal bilateral perinephric fat stranding which could reflect pyelonephritis. pt was already started with IV of antibiotics in ER. PLan: continue antibiotics, add probiotic, IVF, check lactic acid level, order blood culture. (2) Pyelonephritis Patient has low degree 100.5 at clinic,hot and sweating, elevated WBC, N/V/a bdominal pain, CT reveal bilateral perinephric fat stranding which could reflect pyelonephritis. continue antibiotics, add probiotic, IVF (3)Nausea/vomiting 06/23 Patient Nausea, vomiting and abdominal pain, We will continue antiemesis as needed, continue IV fluids, continue pain control, Started with full liquid diet for bowel rest. (4) Hypertension Conclusion/Plan: Will resume patient's Lisinopril, Continue labetalol as needed (5) Hyperlipidemia Conclusion/Plan: On atorvastatin (6) Depression Conclusion/Plan: On sertraline - Current Meds Current Meds: Current Medications Generic Name Dose Route Start Last Admin Trade Name Freq PRN Reason Stop Dose Admin Enoxaparin Sodium 40 mg 06/23/21 09:00 06/23/21 09:18 Enoxaparin 40 Mg/0.4 Ml Syringe SUBQ 40 mg DAILY [place] Administration Hydromorphone HCl 0.5 mg 06/22/21 22:03 06/23/21 03:24 Hydromorphone 0.5 Mg/0.5 Ml Syringe IVP 0.5 mg Q3H PRN Administration Pain 8 to 10 Sodium Chloride 1,000 mls @ 100 mls/hr 06/22/21 23:00 06/23/21 09:09 Normal Saline 0.9% IV 06/23/21 18:59 100 mls/hr .Q10H [place] Administration Ceftriaxone Sodium 2 gm/ 100 mls @ 200 mls/hr 06/23/21 09:00 06/23/21 10:09 Sodium Chloride IV Infused DAILY [place] Infusion Lisinopril 20 mg 06/23/21 09:00 06/23/21 09:18 Lisinopril 20 Mg Tablet PO 20 mg DAILY [place] Administration Ondansetron HCl 4 mg 06/23/21 02:06 06/23/21 02:38 Ondansetron 4 Mg/2 Ml Vial IVP 4 mg Q6HR PRN Administration Nausea / Vomiting Oxycodone HCl 5 mg 06/22/21 22:03 06/23/21 09:19 Oxycodone 5 Mg Tablet PO 5 mg Q4HR PRN Administration Pain 5 to 7 Sodium Chloride 10 ml 06/23/21 01:00 06/22/21 23:32 Sodium Chloride Flush 0.9% 10 Ml Syringe IVP 10 ml 0100,0900,1700 [facility] Administration - Lab Result Fish Bone Diagrams: 06/23/21 05:48 06/23/21 05:48 - Additional Planning My Orders: My Active Orders 06/23/21 UA w/ MICROSCOPIC, CULT IF [URIN] Urgent 06/23/21 05:48 TSH [THYROID STIMULATING HORMONE] [IAI] Urgent 06/23/21 08:58 Blood Culture [CULTURE, BLOOD #1] [] Stat 06/23/21 09:00 Enoxaparin [Lovenox] 40 mg SUBQ DAILY lisinopriL [Zestril] 20 mg PO DAILY 06/23/21 09:41 Blood Culture [CULTURE, BLOOD #2] [] Stat 06/23/21 17:00 Saccharomyces Boulardii [Florastor] 250 mg PO BIDWM Subjective - Subjective Patient Reports: Abdominal Pain, Nausea Objective Vital Signs: Vital Signs - 24 hr 06/22/21 06/22/21 06/22/21 16:50 18:54 20:00 Temperature 36.7 C 37.8 C 37.7 C Heart Rate 101 H 89 85 Heart Rate [ Monitoring electrodes] Respiratory 18 18 16 Rate Blood Pressure 123/80 118/59 L 171/85 H Blood Pressure [Right Brachial artery] Blood Pressure [Right] O2 Saturation 94 95 93 06/22/21 06/22/21 06/23/21 21:49 23:01 06:19 Temperature 36.7 C 37 C Heart Rate 92 Heart Rate [ 99 Monitoring electrodes] Respiratory 15 18 18 Rate Blood Pressure 131/83 H Blood Pressure [Right Brachial artery] Blood Pressure 150/80 H 185/81 H [Right] O2 Saturation 92 94 06/23/21 07:21 Temperature 36.9 C Heart Rate Heart Rate [ 97 Monitoring electrodes] Respiratory 20 Rate Blood Pressure Blood Pressure 183/88 H [Right Brachial artery] Blood Pressure [Right] O2 Saturation 95 Oxygen O2 Source [Without Activity] Room air O2 Source Room air I&O (Last 24 Hrs): Intake and Output Totals x24h 06/21/21 06/22/21 06/23/21 23:59 23:59 23:59 Intake Total 100 1863.333 Output Total 150 Balance 100 1713.333 General: Alert, Oriented x3, Cooperative, Mild distress HEENT: Atraumatic Lymphatic: no adenopathy Neuro: Alert, Non Focal, Oriented Times 3 Cardiovascular: Regular rate, Normal S1, Normal S2 Respiratory: Chest non-tender, No respiratory distress Abdomen: Normal bowel sounds, Soft Extremities: Normal pulses - Results Results: Laboratory Results WBC 16.6 x10^3/uL (4.8-10.8) H 06/23/21 05:48 RBC 4.67 10^6/uL (4.20-5.40) 06/23/21 05:48 Hgb 13.7 g/dL (12.0-16.0) 06/23/21 05:48 Hct 42.0 % (37.0-47.0) 06/23/21 05:48 MCV 89.9 fL (81.0-99.0) 06/23/21 05:48 MCH 29.3 pg (27.0-31.0) 06/23/21 05:48 MCHC 32.6 g/dL (32.0-36.0) 06/23/21 05:48 RDW 14.8 % (12.0-15.0) 06/23/21 05:48 Plt Count 264 10^3/uL (130-450) 06/23/21 05:48 MPV 9.7 fL (7.9-10.8) 06/23/21 05:48 Neut # (Auto) 13.6 10^3/uL (1.5-6.6) H 06/23/21 05:48 Lymph # (Auto) 2.0 10^3/uL (1.5-3.5) 06/23/21 05:48 [place] # (Auto) 0.9 10^3/uL (0.0-1.0) 06/23/21 05:48 Eos # (Auto) 0.0 10^3/uL (0.0-0.7) 06/23/21 05:48 Baso # (Auto) 0.0 10^3/uL (0.0-0.1) 06/23/21 05:48 Absolute Nucleated RBC 0.00 x10^3/uL 06/23/21 05:48 Nucleated RBC % 0.0 /100WBC 06/23/21 05:48 Sodium 138 mmol/L (135-145) 06/23/21 05:48 Potassium 3.2 mmol/L (3.5-5.0) L 06/23/21 05:48 Chloride 103 mmol/L (101-111) 06/23/21 05:48 Carbon Dioxide 24 mmol/L (21-32) 06/23/21 05:48 Anion Gap 11.0 (6-13) 06/23/21 05:48 BUN 28 mg/dL (6-20) H 06/23/21 05:48 Creatinine 0.5 mg/dL (0.4-1.0) 06/23/21 05:48 Estimated GFR (MDRD) 122 (>89) 06/23/21 05:48 Glucose 153 mg/dL (70-100) H 06/23/21 05:48 Lactic Acid 1.0 mmol/L (0.5-2.2) 06/23/21 09:41 Calcium 9.2 mg/dL (8.5-10.3) 06/23/21 05:48 Total Bilirubin 0.6 mg/dL (0.2-1.0) 06/22/21 16:52 AST 30 IU/L (10-42) 06/22/21 16:52 ALT 26 IU/L (10-60) 06/22/21 16:52 Alkaline Phosphatase 55 IU/L (42-121) 06/22/21 16:52 Total Protein 7.7 g/dL (6.7-8.2) 06/22/21 16:52 Albumin 4.6 g/dL (3.2-5.5) 06/22/21 16:52 Globulin 3.1 g/dL (2.1-4.2) 06/22/21 16:52 Albumin/Globulin Ratio 1.5 (1.0-2.2) 06/22/21 16:52 Lipase 32 U/L (22-51) 06/22/21 16:52 Urine Color YELLOW 06/22/21 17:06 Urine Clarity CLOUDY (CLEAR) 06/22/21 17:06 Urine pH 6.0 PH (5.0-7.5) 06/22/21 17:06 Ur Specific [place] >=1.030 (1.002-1.030) H 06/22/21 17:06 Urine Protein >=300 mg/dL (NEGATIVE) H 06/22/21 17:06 Urine Glucose (UA) NEGATIVE mg/dL (NEGATIVE) 06/22/21 17:06 Urine Ketones 15 mg/dL (NEGATIVE) H 06/22/21 17:06 Urine Occult Blood TRACE-INTA (NEGATIVE) 06/22/21 17:06 Urine Nitrite NEGATIVE (NEGATIVE) 06/22/21 17:06 Urine Bilirubin NEGATIVE (NEGATIVE) 06/22/21 17:06 Urine Urobilinogen 0.2 (NORMAL) E.U./dL (NORMAL) 06/22/21 17:06 Ur Leukocyte Esterase NEGATIVE (NEGATIVE) 06/22/21 17:06 Urine RBC 0-5 /HPF (0-5) 06/22/21 17:06 Urine WBC 4-5 /HPF (0-5) 06/22/21 17:06 Ur Squamous Epith Cells MANY Squamous (<= Few) H 06/22/21 17:06 Urine Bacteria Many /HPF (None Seen) H 06/22/21 17:06 Urine Mucus Marked Strands 06/22/21 17:06 Ur Microscopic Review INDICATED 06/22/21 17:06 Urine Culture Comments NOT INDICATED 06/22/21 17:06 Nasal Adenovirus (PCR) NOT DETECTED 06/22/21 17:00 Nasal B. parapertussis DNA (PCR) NOT DETECTED 06/22/21 17:00 Nasal Coronavir 229E PCR NOT DETECTED 06/22/21 17:00 Nasal Coronavir HKU1 PCR NOT DETECTED 06/22/21 17:00 Nasal Coronavir NL63 PCR NOT DETECTED 06/22/21 17:00 Nasal Coronavir OC43 PCR NOT DETECTED 06/22/21 17:00 Nasal Enterovir/Rhinovir PCR NOT DETECTED 06/22/21 17:00 Nasal Influenza B PCR NOT DETECTED 06/22/21 17:00 Nasal Influenza A PCR NOT DETECTED 06/22/21 17:00 Nasal Parainfluen 1 PCR NOT DETECTED 06/22/21 17:00 Nasal Parainfluen 2 PCR NOT DETECTED 06/22/21 17:00 Nasal Parainfluen 3 PCR NOT DETECTED 06/22/21 17:00 Nasal Parainfluen 4 PCR NOT DETECTED 06/22/21 17:00 Nasal RSV (PCR) NOT DETECTED 06/22/21 17:00 Nasal B.pertussis DNA PCR NOT DETECTED 06/22/21 17:00 Nasal C.pneumoniae (PCR) NOT DETECTED 06/22/21 17:00 [place] Human Metapneumo PCR NOT DETECTED 06/22/21 17:00 Nasal M.pneumoniae (PCR) NOT DETECTED 06/22/21 17:00 Nasal SARS-CoV-2 (PCR) NOT DETECTED 06/22/21 17:00 - Procedures Procedures: Procedures EXCISION OF SIGMOID COLON, ENDO (12/07/15) EXPLOR TEND SHEATH-HAND (08/15/12) RELEASE LEFT HAND TENDON, OPEN APPROACH (02/25/16) ABX Reporting Has patient been on IV antibiotics over the past 48 hours?: Yes Current Medications - Current Medications Current Medications: Active Medications Acetaminophen (Acetaminophen 325 Mg Tablet) 650 mg PO Q4HR PRN PRN Reason: Pain 1 to 4, or Fever Enoxaparin Sodium (Enoxaparin 40 Mg/0.4 Ml Syringe) 40 mg SUBQ DAILY [facility] Last Admin: 06/23/21 09:18 Dose: 40 mg Hydromorphone HCl (Hydromorphone 0.5 Mg/0.5 Ml Syringe) 0.5 mg IVP Q3H PRN PRN Reason: Pain 8 to 10 Last Admin: 06/23/21 03:24 Dose: 0.5 mg Sodium Chloride (Normal Saline 0.9%) 1,000 mls @ 100 mls/hr IV .Q10H [facility] Stop: 06/23/21 18:59 Last Admin: 06/23/21 09:09 Dose: 100 mls/hr Ceftriaxone Sodium 2 gm/ (Sodium Chloride) 100 mls @ 200 mls/hr IV DAILY [facility] Last Infusion: 06/23/21 10:09 Dose: Infused Labetalol HCl (Labetalol 20 Mg/4 Ml Syringe) 10 mg IVP Q6H PRN PRN Reason: PER PHYSICIAN ORDER Lisinopril (Lisinopril 20 Mg Tablet) 20 mg PO DAILY [facility] Last Admin: 06/23/21 09:18 Dose: 20 mg Ondansetron HCl (Ondansetron 4 Mg/2 Ml Vial) 4 mg IVP Q6HR PRN PRN Reason: Nausea / Vomiting Last Admin: 06/23/21 02:38 Dose: 4 mg Oxycodone HCl (Oxycodone 5 Mg Tablet) 5 mg PO Q4HR PRN PRN Reason: Pain 5 to 7 Last Admin: 06/23/21 09:19 Dose: 5 mg Saccharomyces Boulardii (Saccharomyces Boulardii 250 Mg Capsule) 250 mg PO BIDWM [facility] Sodium Chloride (Sodium Chloride Flush 0.9% 10 Ml Syringe) 10 ml IVP PRN PRN PRN Reason: NEEDED PER PROVIDER ORDERS Sodium Chloride (Sodium Chloride Flush 0.9% 10 Ml Syringe) 10 ml IVP 0100,0900,1700 [facility] Last Admin: 06/22/21 23:32 Dose: 10 ml lisinopriL [Lisinopril] 10 mg PO DAILY 08/14/12 Aspirin 81 mg PO Q2D 12/04/15 Atorvastatin [Lipitor] 40 mg PO QPM 02/21/17 Sertraline [Zoloft] 50 mg PO DAILY 02/21/17 Losartan Potassium 1 tab PO DAILY 10/24/20
[2021-06-23] MEDS: LABETALOL 20 MG/4 ML SYRINGE IVP PRN ×2 (12:29→18:39)
[2021-06-23 13:10] LABS: BILIRUBIN,URINE NEGATIVE (NEGATIVE); GLUCOSE, URINE (UA) NEGATIVE (NEGATIVE); KETONES,URINE (UA) TRACE mg/dL (NEGATIVE); LEUKOCYTE ESTERASE, URINE NEGATIVE (NEGATIVE); NITRITE,URINE NEGATIVE (NEGATIVE); OCCULT BLOOD,URINE NEGATIVE (NEGATIVE); PROTEIN,URINE TRACE mg/dL (NEGATIVE); UROBILINOGEN,URINE 0.2 (NORMAL) E.U./dL (NORMAL)
[2021-06-23 13:11] LABS: CLARITY,URINE HAZY (CLEAR)
[2021-06-23 13:26] LABS: WBC,URINE 0-3 /HPF (0-5)
[2021-06-23 13:27] LABS: BACTERIA,URINE Few /HPF (None Seen); MUCUS,URINE Few Strands; RBC,URINE 0-5 /HPF (0-5); SQUAMOUS EPITHELIAL CELL,UR MANY Squamous (<= Few)
[2021-06-23] MEDS: SODIUM CHLORIDE FLUSH 0.9% 10 ML SYRINGE IVP SCH ×2 (15:15→16:07)
[2021-06-23] MEDS: SACCHAROMYCES BOULARDII 250 MG CAPSULE PO SCH (16:40)
[2021-06-23] MEDS ORDERED: METOPROLOL 5 MG/5 ML VIAL IVP PRN (18:11)
--- NOTE | 2021-06-23 19:24 | PHARMACY PROGRESS NOTE ---
- Best Possible Medication History Admit Date and Time: 06/23/21 1600 Processed by: Pharmacy Medication History completed: Yes Patient Interview: Completed Secondary Source(s): Insurance records As the person ultimately responsible for medication therapy, providers are able to order a medication from an existing home medication list in [facility] via the "Reconcile Routine" prior to Confirmation of that medication by it support specialist. Such practice is discouraged except when the physician, in their clinical judgment, deems that a medical need exists for a medication without regard to previous use.
[2021-06-23] MEDS ORDERED: LORazepam 2 MG/ML VIAL IVP PRN (19:48)
[2021-06-23] MEDS: chlordiazePOXIDE 25 MG CAPSULE PO SCH (21:25)
[2021-06-24] MEDS: SODIUM CHLORIDE FLUSH 0.9% 10 ML SYRINGE IVP SCH ×3 (01:06→16:05)
[2021-06-24] MEDS: chlordiazePOXIDE 25 MG CAPSULE PO SCH ×2 (05:48→20:40)
[2021-06-24 06:16] LABS: BASOPHILS % (AUTO) 0.4 %; HGB - HEMOGLOBIN 12.8 g/dL (12.0-16.0); LYMPHOCYTES # (AUTO) 2.5 10^3/uL (1.5-3.5); MEAN CORPUSCULAR HEMOGLOBIN 28.9 pg (27.0-31.0); MEAN CORPUSCULAR VOLUME 90.3 fL (81.0-99.0); MEAN PLATELET VOLUME 10.5 fL (7.9-10.8); MONOCYTES # (AUTO) 0.7 10^3/uL (0.0-1.0); MONOCYTES % (AUTO) 6.4 %; NEUTROPHILS # (AUTO) 7.9 10^3/uL (1.5-6.6); NEUTROPHILS % (AUTO) 70.9 %; PLT - PLATELET COUNT 244 10^3/uL (130-450); RED BLOOD COUNT 4.43 10^6/uL (4.20-5.40); RED CELL DISTRIBUTION WIDTH 14.6 % (12.0-15.0); WHITE BLOOD COUNT 11.1 x10^3/uL (4.8-10.8)
[2021-06-24 06:28] LABS: CALCIUM 9.1 mg/dL (8.5-10.3); CREATININE 0.4 mg/dL (0.4-1.0); POTASSIUM 3.2 mmol/L (3.5-5.0)
[2021-06-24] MEDS ORDERED: POTASSIUM CHLORIDE 20 MEQ TABLET PO ONE (07:45)
[2021-06-24] MEDS ORDERED: GI COCKTAIL 120 ML BOTTLE PO PRN (09:10)
[2021-06-24] MEDS ORDERED: GI COCKTAIL 120 ML BOTTLE PO SCH (10:00)
[2021-06-24] MEDS: SERTRALINE 50 MG TABLET PO SCH (11:14)
[2021-06-24] MEDS: lisinopriL 20 MG TABLET PO SCH (11:15)
[2021-06-24] MEDS: METOPROLOL TARTRATE 25 MG TABLET PO SCH ×2 (11:15→20:40)
[2021-06-24] MEDS: PANTOPRAZOLE 40 MG TABLET PO SCH (11:15)
[2021-06-24] MEDS: ASPIRIN CHEW 81 MG TABLET PO SCH (11:15)
[2021-06-24] MEDS: PRENATAL VITAMIN TABLET PO SCH (11:16)
[2021-06-24] MEDS: SACCHAROMYCES BOULARDII 250 MG CAPSULE PO SCH ×2 (11:18→16:05)
[2021-06-24] MEDS: THIAMINE 100 MG TABLET PO SCH (11:18)
[2021-06-24] MEDS: ENOXAPARIN 40 MG/0.4 ML SYRINGE SUBQ SCH (11:21)
[2021-06-24] MEDS: cefTRIAXone 2 GM in SODIUM CHLORIDE 0.9% MINIBAG 100 ML IV SCH (11:22)
--- NOTE | 2021-06-24 11:43 | PROVIDER PROGRESS NOTE ---
Assessment/Plan - Problem List (1) Sepsis Assessment/Plan: 06/24 improved. pt has no more fever, WBC is down to 11.1, blood culture is pending, we will continue IV antibiotics 06/23 Patient has low degree 100.5 at clinic,hot and sweating, elevated WBC, N/V/abdominal pain, CT reveal bilateral perinephric fat stranding which could reflect pyelonephritis. pt was already started with IV of antibiotics in ER. PLan: continue antibiotics, add probiotic, IVF, check lactic acid level, order blood culture. (2) Pyelonephritis 06/24 improved. pt's N/V are controlled, her abdominal pain is better controlled. pt has no more fever. and WBC is down to 11.1. we will continue IV antibiotics, add probiotics. Patient has low degree 100.5 at clinic,hot and sweating, elevated WBC, N/V/abdominal pain, CT reveal bilateral perinephric fat stranding which could reflect pyelonephritis. continue antibiotics, add probiotic, IVF (3)Nausea/vomiting 06/24 resolved. 06/23 Patient Nausea, vomiting and abdominal pain, We will continue antiemesis as needed, continue IV fluids, continue pain control, Started with full liquid diet for bowel rest. (4) Hypertension Conclusion/Plan: Will resume patient's Lisinopril, Continue labetalol as needed (5) Hyperlipidemia Conclusion/Plan: On atorvastatin (6) Depression Conclusion/Plan: On sertraline (7)hx of alcohol abuse pt has different store about her hx of alcohol drinking. she report she quit alcohol 9 months ago. another provider had full alcohol withdrawal treatment for pt. since pt has no acute withdrawal at this moment, reduce her Librium dosage, continue , B1, and CIWA protocol (8)GERD order Protonix and GI cocktail (9)unsuspended SVT pt had unsuspended SVT on tele monitor, but pt is asymptomatic and hemodynamic stable. pt had labetolol IV PRN on last night. we add Metoprolol PO and continue tele monitor - Current Meds Current Meds: Current Medications Generic Name Dose Route Start Last Admin Trade Name Freq PRN Reason Stop Dose Admin Aspirin 81 mg 06/24/21 08:00 06/24/21 11:15 Aspirin Chew 81 Mg Tablet PO 81 mg Q48H [place] Administration Enoxaparin Sodium 40 mg 06/23/21 09:00 06/24/21 11:21 Enoxaparin 40 Mg/0.4 Ml Syringe SUBQ 40 mg DAILY [place] Administration Hydromorphone HCl 0.5 mg 06/22/21 22:03 06/23/21 03:24 Hydromorphone 0.5 Mg/0.5 Ml Syringe IVP 0.5 mg Q3H PRN Administration Pain 8 to 10 Ceftriaxone Sodium 2 gm/ 100 mls @ 200 mls/hr 06/23/21 09:00 06/24/21 11:22 Sodium Chloride IV 200 mls/hr DAILY [place] Administration Labetalol HCl 10 mg 06/23/21 06:38 06/23/21 18:39 Labetalol 20 Mg/4 Ml Syringe IVP 10 mg Q6H PRN Administration PER PHYSICIAN ORDER Lisinopril 20 mg 06/23/21 09:00 06/24/21 11:15 Lisinopril 20 Mg Tablet PO 20 mg DAILY [place] Administration Metoprolol Tartrate 25 mg 06/24/21 09:00 06/24/21 11:15 Metoprolol Tartrate 25 Mg Tablet PO 25 mg BID [place] Administration Ondansetron HCl 4 mg 06/23/21 02:06 06/23/21 16:43 Ondansetron 4 Mg/2 Ml Vial IVP 4 mg Q6HR PRN Administration Nausea / Vomiting Oxycodone HCl 5 mg 06/22/21 22:03 06/23/21 09:19 Oxycodone 5 Mg Tablet PO 5 mg Q4HR PRN Administration Pain 5 to 7 Pantoprazole Sodium 40 mg 06/24/21 09:00 06/24/21 11:15 Pantoprazole 40 Mg Tablet PO 40 mg QDAC [place] Administration Multivit/Folic Acid/Iron 1 tab 06/24/21 09:00 06/24/21 11:16 Vitamin Tablet PO 1 tab DAILY [place] Administration Saccharomyces Boulardii 250 mg 06/23/21 17:00 06/24/21 11:18 Saccharomyces Boulardii 250 Mg Capsule PO 250 mg BIDWM [place] Administration Sertraline HCl 100 mg 06/24/21 09:00 06/24/21 11:14 Sertraline 50 Mg Tablet PO 100 mg DAILY [place] Administration Sodium Chloride 10 ml 06/23/21 01:00 06/24/21 11:22 Sodium Chloride Flush 0.9% 10 Ml Syringe IVP 10 ml 0100,0900,1700 [place] Administration Thiamine HCl 100 mg 06/24/21 09:00 06/24/21 11:18 Thiamine 100 Mg Tablet PO 100 mg DAILY [place] Administration - Lab Result Fish Bone Diagrams: 06/24/21 04:20 06/24/21 04:20 - Additional Planning My Orders: My Active Orders 06/23/21 Lunch Full Liquid Diet [DIET] 06/23/21 17:00 Saccharomyces Boulardii [Florastor] 250 mg PO BIDWM 06/24/21 08:00 Aspirin Chewable [[facility] Shaun Aspirin] 81 mg PO Q48H 06/24/21 09:00 Metoprolol Tartrate [Lopressor] 25 mg PO BID Pantoprazole [Protonix] 40 mg PO QDAC Sertraline [Zoloft] 100 mg PO DAILY 06/24/21 09:10 Gi Cocktail 30 ml PO Q4H PRN 06/24/21 21:00 Atorvastatin [Lipitor] 40 mg PO QPM chlordiazePOXIDE [Librium] 25 mg PO BID Subjective - Subjective Patient Reports: Feeling Better, Resting Comfortably Objective Vital Signs: Vital Signs - 24 hr 06/23/21 06/23/21 06/23/21 12:16 12:33 12:39 Temperature 37.2 C Heart Rate [ 96 90 84 Brachial] Respiratory 20 Rate Blood Pressure 180/79 H 171/72 H 165/75 H [Right Brachial artery] O2 Saturation 94 06/23/21 06/23/21 06/23/21 12:45 13:00 13:26 Temperature Heart Rate [ 86 88 85 Brachial] Respiratory Rate Blood Pressure 165/73 H 120/84 H 163/87 H [Right Brachial artery] O2 Saturation 06/23/21 06/23/21 06/23/21 15:30 16:46 18:35 Temperature 36.6 C Heart Rate [ 86 89 90 Brachial] Respiratory 20 Rate Blood Pressure 168/80 H 131/94 H 186/86 H [Right Brachial artery] O2 Saturation 95 06/23/21 06/23/21 06/23/21 18:40 18:45 18:50 Temperature Heart Rate [ 81 78 75 Brachial] Respiratory Rate Blood Pressure 154/74 H 149/78 H 160/86 H [Right Brachial artery] O2 Saturation 06/23/21 06/23/21 06/23/21 18:55 19:00 19:30 Temperature Heart Rate [ 72 77 83 Brachial] Respiratory Rate Blood Pressure 153/86 H 156/84 H 149/86 H [Right Brachial artery] O2 Saturation 06/23/21 06/23/21 06/24/21 19:55 20:14 00:23 Temperature 36.9 C 36.8 C Heart Rate [ 83 86 90 Brachial] Respiratory 20 16 Rate Blood Pressure 154/92 H 159/84 H 155/63 H [Right Brachial artery] O2 Saturation 97 96 06/24/21 06/24/21 04:53 07:23 Temperature 36.8 C 36.8 C Heart Rate [ 79 78 Brachial] Respiratory 20 16 Rate Blood Pressure 160/79 H 157/73 H [Right Brachial artery] O2 Saturation 96 96 Oxygen O2 Source [Without Activity] Room air O2 Source Room air I&O (Last 24 Hrs): Intake and Output Totals x24h 06/22/21 06/23/21 06/24/21 23:59 23:59 23:59 Intake Total 100 3343.333 590 Output Total 750 775 Balance 100 2593.333 -185 General: Alert, Oriented x3, Cooperative, No acute distress HEENT: Atraumatic Neck: Supple Lymphatic: no adenopathy Neuro: Alert, Non Focal, Oriented Times 3 Cardiovascular: Regular rate, Normal S1, Normal S2 Respiratory: Chest non-tender, No respiratory distress Abdomen: Normal bowel sounds, Soft Extremities: Normal pulses - Results Results: Laboratory Results WBC 11.1 x10^3/uL (4.8-10.8) H 06/24/21 04:20 RBC 4.43 10^6/uL (4.20-5.40) 06/24/21 04:20 Hgb 12.8 g/dL (12.0-16.0) 06/24/21 04:20 Hct 40.0 % (37.0-47.0) 06/24/21 04:20 MCV 90.3 fL (81.0-99.0) 06/24/21 04:20 MCH 28.9 pg (27.0-31.0) 06/24/21 04:20 MCHC 32.0 g/dL (32.0-36.0) 06/24/21 04:20 RDW 14.6 % (12.0-15.0) 06/24/21 04:20 Plt Count 244 10^3/uL (130-450) 06/24/21 04:20 MPV 10.5 fL (7.9-10.8) 06/24/21 04:20 Neut # (Auto) 7.9 10^3/uL (1.5-6.6) H 06/24/21 04:20 Lymph # (Auto) 2.5 10^3/uL (1.5-3.5) 06/24/21 04:20 [place] # (Auto) 0.7 10^3/uL (0.0-1.0) 06/24/21 04:20 Eos # (Auto) 0.0 10^3/uL (0.0-0.7) 06/24/21 04:20 Baso # (Auto) 0.0 10^3/uL (0.0-0.1) 06/24/21 04:20 Absolute Nucleated RBC 0.00 x10^3/uL 06/24/21 04:20 Nucleated RBC % 0.0 /100WBC 06/24/21 04:20 Sodium 141 mmol/L (135-145) 06/24/21 04:20 Potassium 3.2 mmol/L (3.5-5.0) L 06/24/21 04:20 Chloride 105 mmol/L (101-111) 06/24/21 04:20 Carbon Dioxide 27 mmol/L (21-32) 06/24/21 04:20 Anion Gap 9.0 (6-13) 06/24/21 04:20 BUN 13 mg/dL (6-20) 06/24/21 04:20 Creatinine 0.4 mg/dL (0.4-1.0) 06/24/21 04:20 Estimated GFR (MDRD) 158 (>89) 06/24/21 04:20 Glucose 154 mg/dL (70-100) H 06/24/21 04:20 Lactic Acid 1.0 mmol/L (0.5-2.2) 06/23/21 09:41 Calcium 9.1 mg/dL (8.5-10.3) 06/24/21 04:20 Total Bilirubin 0.6 mg/dL (0.2-1.0) 06/22/21 16:52 AST 30 IU/L (10-42) 06/22/21 16:52 ALT 26 IU/L (10-60) 06/22/21 16:52 Alkaline Phosphatase 55 IU/L (42-121) 06/22/21 16:52 Total Protein 7.7 g/dL (6.7-8.2) 06/22/21 16:52 Albumin 4.6 g/dL (3.2-5.5) 06/22/21 16:52 Globulin 3.1 g/dL (2.1-4.2) 06/22/21 16:52 Albumin/Globulin Ratio 1.5 (1.0-2.2) 06/22/21 16:52 Lipase 32 U/L (22-51) 06/22/21 16:52 TSH 0.86 uIU/mL (0.34-5.60) 06/23/21 05:48 Urine Color YELLOW 06/23/21 13:00 Urine Clarity HAZY (CLEAR) 06/23/21 13:00 Urine pH 6.0 PH (5.0-7.5) 06/23/21 13:00 Ur Specific [place] 1.025 (1.002-1.030) 06/23/21 13:00 Urine Protein TRACE mg/dL (NEGATIVE) 06/23/21 13:00 Urine Glucose (UA) NEGATIVE mg/dL (NEGATIVE) 06/23/21 13:00 Urine Ketones TRACE mg/dL (NEGATIVE) 06/23/21 13:00 Urine Occult Blood NEGATIVE (NEGATIVE) 06/23/21 13:00 Urine Nitrite NEGATIVE (NEGATIVE) 06/23/21 13:00 Urine Bilirubin NEGATIVE (NEGATIVE) 06/23/21 13:00 Urine Urobilinogen 0.2 (NORMAL) E.U./dL (NORMAL) 06/23/21 13:00 Ur Leukocyte Esterase NEGATIVE (NEGATIVE) 06/23/21 13:00 Urine RBC 0-5 /HPF (0-5) 06/23/21 13:00 Urine WBC 0-3 /HPF (0-5) 06/23/21 13:00 Ur Squamous Epith Cells MANY Squamous (<= Few) H 06/23/21 13:00 Urine Bacteria Few /HPF (None Seen) 06/23/21 13:00 Urine Mucus Few Strands 06/23/21 13:00 Ur Microscopic Review INDICATED 06/22/21 17:06 Urine Culture Comments NOT INDICATED 06/23/21 13:00 Nasal Adenovirus (PCR) NOT DETECTED 06/22/21 17:00 Nasal B. parapertussis DNA (PCR) NOT DETECTED 06/22/21 17:00 Nasal Coronavir 229E PCR NOT DETECTED 06/22/21 17:00 Nasal Coronavir HKU1 PCR NOT DETECTED 06/22/21 17:00 Nasal Coronavir NL63 PCR NOT DETECTED 06/22/21 17:00 Nasal Coronavir OC43 PCR NOT DETECTED 06/22/21 17:00 Nasal Enterovir/Rhinovir PCR NOT DETECTED 06/22/21 17:00 Nasal Influenza B PCR NOT DETECTED 06/22/21 17:00 Nasal Influenza A PCR NOT DETECTED 06/22/21 17:00 Nasal Parainfluen 1 PCR NOT DETECTED 06/22/21 17:00 Nasal Parainfluen 2 PCR NOT DETECTED 06/22/21 17:00 Nasal Parainfluen 3 PCR NOT DETECTED 06/22/21 17:00 Nasal Parainfluen 4 PCR NOT DETECTED 06/22/21 17:00 Nasal RSV (PCR) NOT DETECTED 06/22/21 17:00 Nasal B.pertussis DNA PCR NOT DETECTED 06/22/21 17:00 Nasal C.pneumoniae (PCR) NOT DETECTED 06/22/21 17:00 [place] Human Metapneumo PCR NOT DETECTED 06/22/21 17:00 Nasal M.pneumoniae (PCR) NOT DETECTED 06/22/21 17:00 Nasal SARS-CoV-2 (PCR) NOT DETECTED 06/22/21 17:00 - Procedures Procedures: Procedures EXCISION OF SIGMOID COLON, ENDO (12/07/15) EXPLOR TEND SHEATH-HAND (08/15/12) RELEASE LEFT HAND TENDON, OPEN APPROACH (02/25/16) ABX Reporting Has patient been on IV antibiotics over the past 48 hours?: Yes Current Medications - Current Medications Current Medications: Active Medications Acetaminophen (Acetaminophen 325 Mg Tablet) 650 mg PO Q4HR PRN PRN Reason: Pain 1 to 4, or Fever Aspirin (Aspirin Chew 81 Mg Tablet) 81 mg PO Q48H [place] Last Admin: 06/24/21 11:15 Dose: 81 mg Atorvastatin Calcium (Atorvastatin 40 Mg Tablet) 40 mg PO QPM [facility] Chlordiazepoxide HCl (Chlordiazepoxide 25 Mg Capsule) 25 mg PO BID [facility] Enoxaparin Sodium (Enoxaparin 40 Mg/0.4 Ml Syringe) 40 mg SUBQ DAILY [facility] Last Admin: 06/24/21 11:21 Dose: 40 mg Hydromorphone HCl (Hydromorphone 0.5 Mg/0.5 Ml Syringe) 0.5 mg IVP Q3H PRN PRN Reason: Pain 8 to 10 Last Admin: 06/23/21 03:24 Dose: 0.5 mg Ceftriaxone Sodium 2 gm/ (Sodium Chloride) 100 mls @ 200 mls/hr IV DAILY [facility] Last Admin: 06/24/21 11:22 Dose: 200 mls/hr Labetalol HCl (Labetalol 20 Mg/4 Ml Syringe) 10 mg IVP Q6H PRN PRN Reason: PER PHYSICIAN ORDER Last Admin: 06/23/21 18:39 Dose: 10 mg Lisinopril (Lisinopril 20 Mg Tablet) 20 mg PO DAILY [facility] Last Admin: 06/24/21 11:15 Dose: 20 mg Lorazepam (Lorazepam 2 Mg/Ml Vial) 1 mg IVP Q30M PRN; Protocol PRN Reason: CIWA >8 Metoprolol Tartrate (Metoprolol Tartrate 25 Mg Tablet) 25 mg PO BID [facility] Last Admin: 06/24/21 11:15 Dose: 25 mg Multi-Ingredient Mouthwash/Gargle (Gi Cocktail 120 Ml Bottle) 30 ml PO Q4H PRN PRN Reason: Abdominal Pain Ondansetron HCl (Ondansetron 4 Mg/2 Ml Vial) 4 mg IVP Q6HR PRN PRN Reason: Nausea / Vomiting Last Admin: 06/23/21 16:43 Dose: 4 mg Oxycodone HCl (Oxycodone 5 Mg Tablet) 5 mg PO Q4HR PRN PRN Reason: Pain 5 to 7 Last Admin: 06/23/21 09:19 Dose: 5 mg Pantoprazole Sodium (Pantoprazole 40 Mg Tablet) 40 mg PO QDAC [facility] Last Admin: 06/24/21 11:15 Dose: 40 mg Multivit/Folic Acid/Iron ( Vitamin Tablet) 1 tab PO DAILY [facility] Last Admin: 06/24/21 11:16 Dose: 1 tab Saccharomyces Boulardii (Saccharomyces Boulardii 250 Mg Capsule) 250 mg PO BIDWM [facility] Last Admin: 06/24/21 11:18 Dose: 250 mg Sertraline HCl (Sertraline 50 Mg Tablet) 100 mg PO DAILY [facility] Last Admin: 06/24/21 11:14 Dose: 100 mg Sodium Chloride (Sodium Chloride Flush 0.9% 10 Ml Syringe) 10 ml IVP PRN PRN PRN Reason: NEEDED PER PROVIDER ORDERS Sodium Chloride (Sodium Chloride Flush 0.9% 10 Ml Syringe) 10 ml IVP 0100,0900,1700 [facility] Last Admin: 06/24/21 11:22 Dose: 10 ml Thiamine HCl (Thiamine 100 Mg Tablet) 100 mg PO DAILY [facility] Last Admin: 06/24/21 11:18 Dose: 100 mg Aspirin 81 mg PO Q2D 12/04/15 Atorvastatin [Lipitor] 40 mg PO QPM 02/21/17 Sertraline [Zoloft] 100 mg PO DAILY 02/21/17 Losartan Potassium 2 tab PO DAILY 10/24/20
[2021-06-24] MEDS: oxyCODONE 5 MG TABLET PO PRN (16:05)
[2021-06-24] MEDS: ONDANSETRON 4 MG/2 ML VIAL IVP PRN (16:05)
[2021-06-24] MEDS: DOCUSATE SODIUM 250 MG CAPSULE PO SCH (20:40)
[2021-06-24] MEDS: SENNA 8.6 MG TABLET PO SCH (20:40)
[2021-06-24] MEDS: ATORVASTATIN 40 MG TABLET PO SCH (20:40)
[2021-06-25] MEDS: SODIUM CHLORIDE FLUSH 0.9% 10 ML SYRINGE IVP SCH ×3 (01:04→16:36)
[2021-06-25 06:04] LABS: BASOPHILS # (AUTO) 0.1 10^3/uL (0.0-0.1); BASOPHILS % (AUTO) 0.6 %; EOSINOPHILS # (AUTO) 0.1 10^3/uL (0.0-0.7); HCT - HEMATOCRIT 38.7 % (37.0-47.0); HGB - HEMOGLOBIN 12.1 g/dL (12.0-16.0); MEAN CORPUSCULAR HEMOGLOBIN 29.3 pg (27.0-31.0); MEAN CORPUSCULAR HGB CONC 31.3 g/dL (32.0-36.0); MEAN CORPUSCULAR VOLUME 93.7 fL (81.0-99.0); MEAN PLATELET VOLUME 10.4 fL (7.9-10.8); MONOCYTES # (AUTO) 0.6 10^3/uL (0.0-1.0); NEUTROPHILS # (AUTO) 5.3 10^3/uL (1.5-6.6); NEUTROPHILS % (AUTO) 58.2 %; PLT - PLATELET COUNT 204 10^3/uL (130-450); RED BLOOD COUNT 4.13 10^6/uL (4.20-5.40); RED CELL DISTRIBUTION WIDTH 14.4 % (12.0-15.0); WHITE BLOOD COUNT 9.1 x10^3/uL (4.8-10.8)
[2021-06-25 06:15] LABS: CALCIUM 8.9 mg/dL (8.5-10.3); CREATININE 0.5 mg/dL (0.4-1.0); POTASSIUM 3.4 mmol/L (3.5-5.0)
[2021-06-25] MEDS: PANTOPRAZOLE 40 MG TABLET PO SCH (06:54)
[2021-06-25] MEDS: SACCHAROMYCES BOULARDII 250 MG CAPSULE PO SCH ×2 (09:03→16:36)
[2021-06-25] MEDS: cefTRIAXone 2 GM in SODIUM CHLORIDE 0.9% MINIBAG 100 ML IV SCH (09:03)
[2021-06-25] MEDS: DOCUSATE SODIUM 250 MG CAPSULE PO SCH (09:04)
[2021-06-25] MEDS: chlordiazePOXIDE 25 MG CAPSULE PO SCH (09:04)
[2021-06-25] MEDS: SERTRALINE 50 MG TABLET PO SCH (09:05)
[2021-06-25] MEDS: ENOXAPARIN 40 MG/0.4 ML SYRINGE SUBQ SCH (09:05)
[2021-06-25] MEDS: SENNA 8.6 MG TABLET PO SCH (09:05)
[2021-06-25] MEDS: PRENATAL VITAMIN TABLET PO SCH (09:05)
[2021-06-25] MEDS: THIAMINE 100 MG TABLET PO SCH (09:06)
[2021-06-25] MEDS: METOPROLOL TARTRATE 25 MG TABLET PO SCH ×2 (09:06→20:57)
[2021-06-25] MEDS: oxyCODONE 5 MG TABLET PO PRN (11:27)
[2021-06-25] MEDS: ONDANSETRON 4 MG/2 ML VIAL IVP PRN ×2 (11:27→16:37)
--- NOTE | 2021-06-25 13:34 | PROVIDER PROGRESS NOTE ---
Assessment/Plan - Problem List (1) Nausea & vomiting Assessment/Plan: 06/25 after breakfast pt reported nausea, and abdominal pain. pt did not take lunch. CT of abdomen/pelvis on 06/22/21 reveals nonspecific bilateral perinephric fat stranding which could reflect early pyelonephritis without hydronephrosis. Pt took today once Librium 25 mg at 9am. Since pt does not present other alcohol withdrawal symptoms or stress since admission, she report her last alcohol intake was last year Sep. we hold Librium now. start gently IV, continue antiemesis, and pain control, continue protonix and GI cocktail. (2) Sepsis Assessment/Plan: 06/25 improved. pt's WBC is at normal arrange, pt has no more fever at hospital, blood culture is negative for bacteremia, continue antibiotics now, gently IVF 06/24 improved. pt has no more fever, WBC is down to 11.1, blood culture is pending, we will continue IV antibiotics 06/23 Patient has low degree 100.5 at clinic,hot and sweating, elevated WBC, N/V/abdominal pain, CT reveal bilateral perinephric fat stranding which could reflect pyelonephritis. pt was already started with IV of antibiotics in ER. PLan: continue antibiotics, add probiotic, IVF, check lactic acid level, order blood culture. (3) Pyelonephritis 06/25 today pt complained nausea and abdominal pain, otherwise, she is improved as the above stated. continue antibiotics now, gently IVF 06/24 improved. pt's N/V are controlled, her abdominal pain is better controlled. pt has no more fever. and WBC is down to 11.1. we will continue IV antibiotics, add probiotics. Patient has low degree 100.5 at clinic,hot and sweating, elevated WBC, N/V/abdominal pain, CT reveal bilateral perinephric fat stranding which could reflect pyelonephritis. continue antibiotics, add probiotic, IVF (4) Hypertension Conclusion/Plan: 06/25 pt has slight lower BP at the morning. because pt has several episodes of S VT, she had new meds metoprolol. we hold her home Lisinopril now, reduce her metoprolol dosage, start with IVF, continue vital and tele monitor (5) Hyperlipidemia Conclusion/Plan: On atorvastatin (6) Depression Conclusion/Plan: On sertraline (7)hx of alcohol abuse pt has different store about her hx of alcohol drinking. she report she quit alcohol 9 months ago. another provider had full alcohol withdrawal treatment for pt. since pt has no acute withdrawal at this moment, reduce her Librium dosage, continue , B1, and CIWA protocol (8)GERD order Protonix and GI cocktail (9)unsuspended SVT 06/25 no more SVT was reported, resolved. continue metoprolol, and tele and vital monitor pt. pt had unsuspended SVT on tele monitor, but pt is asymptomatic and hemodynamic stable. pt had labetolol IV PRN on last night. we add Metoprolol PO and continue tele monitor - Current Meds Current Meds: Current Medications Generic Name Dose Route Start Last Admin Trade Name Freq PRN Reason Stop Dose Admin Aspirin 81 mg 06/24/21 08:00 06/24/21 11:15 Aspirin Chew 81 Mg Tablet PO 81 mg Q48H [place] Administration Atorvastatin Calcium 40 mg 06/24/21 21:00 06/24/21 20:40 Atorvastatin 40 Mg Tablet PO 40 mg QPM [place] Administration Docusate Sodium 250 - 500 mg 06/24/21 21:00 06/25/21 09:04 Docusate Sodium 250 Mg Capsule PO 250 mg DAILY [place] Administration Enoxaparin Sodium 40 mg 06/23/21 09:00 06/25/21 09:05 Enoxaparin 40 Mg/0.4 Ml Syringe SUBQ 40 mg DAILY [place] Administration Hydromorphone HCl 0.5 mg 06/22/21 22:03 06/23/21 03:24 Hydromorphone 0.5 Mg/0.5 Ml Syringe IVP 0.5 mg Q3H PRN Administration Pain 8 to 10 Ceftriaxone Sodium 2 gm/ 100 mls @ 200 mls/hr 06/23/21 09:00 06/25/21 10:30 Sodium Chloride IV Infused DAILY [place] Infusion Labetalol HCl 10 mg 06/23/21 06:38 06/23/21 18:39 Labetalol 20 Mg/4 Ml Syringe IVP 10 mg Q6H PRN Administration PER PHYSICIAN ORDER Metoprolol Tartrate 12.5 mg 06/25/21 09:00 06/25/21 09:06 Metoprolol Tartrate 25 Mg Tablet PO 12.5 mg BID [place] Administration Multi-Ingredient Mouthwash/Gargle 30 ml 06/24/21 09:10 06/25/21 09:17 Gi Cocktail 120 Ml Bottle PO 30 ml Q4H PRN Administration Abdominal Pain Ondansetron HCl 4 mg 06/23/21 02:06 06/25/21 11:27 Ondansetron 4 Mg/2 Ml Vial IVP 4 mg Q6HR PRN Administration Nausea / Vomiting Oxycodone HCl 5 mg 06/22/21 22:03 06/25/21 11:27 Oxycodone 5 Mg Tablet PO 5 mg Q4HR PRN Administration Pain 5 to 7 Pantoprazole Sodium 40 mg 06/24/21 09:00 06/25/21 06:54 Pantoprazole 40 Mg Tablet PO 40 mg QDAC [place] Administration Multivit/Folic Acid/Iron 1 tab 06/24/21 09:00 06/25/21 09:05 Vitamin Tablet PO 1 tab DAILY [place] Administration Saccharomyces Boulardii 250 mg 06/23/21 17:00 06/25/21 09:03 Saccharomyces Boulardii 250 Mg Capsule PO 250 mg BIDWM [place] Administration Senna 8.6 - 17.2 mg 06/24/21 21:00 06/25/21 09:05 Senna 8.6 Mg Tablet PO 8.6 mg DAILY [place] Administration Sertraline HCl 100 mg 06/24/21 09:00 06/25/21 09:05 Sertraline 50 Mg Tablet PO 100 mg DAILY [place] Administration Sodium Chloride 10 ml 06/23/21 01:00 06/25/21 09:06 Sodium Chloride Flush 0.9% 10 Ml Syringe IVP 10 ml 0100,0900,1700 [place] Administration Thiamine HCl 100 mg 06/24/21 09:00 06/25/21 09:06 Thiamine 100 Mg Tablet PO 100 mg DAILY [place] Administration - Lab Result Fish Bone Diagrams: 06/25/21 04:30 06/25/21 04:30 - Additional Planning My Orders: My Active Orders 06/24/21 21:00 Atorvastatin [Lipitor] 40 mg PO QPM 06/25/21 09:00 Metoprolol Tartrate [Lopressor] 12.5 mg PO BID 06/25/21 14:00 LR @ 83.333 mls/hr Lactated Ringers [Lr] 1,000 ml IV 83.333 mls/hr Subjective - Subjective Patient Reports: Abdominal Pain, Nausea Objective Vital Signs: Vital Signs - 24 hr 06/24/21 06/24/21 06/24/21 15:46 17:12 20:14 Temperature 37.0 C 37 C 36.8 C Heart Rate 78 Heart Rate [ 78 80 Brachial] Respiratory 16 16 16 Rate Blood Pressure Blood Pressure 83/46 L [Left Brachial artery] Blood Pressure 152/79 H 89/62 L [Right Brachial artery] O2 Saturation 95 95 95 06/24/21 06/24/21 06/25/21 20:29 20:40 00:30 Temperature 36.5 C Heart Rate Heart Rate [ 74 73 Brachial] Respiratory 18 Rate Blood Pressure 102/54 L Blood Pressure [Left Brachial artery] Blood Pressure 102/54 L 104/60 [Right Brachial artery] O2 Saturation 92 06/25/21 06/25/21 06/25/21 03:35 08:10 09:06 Temperature 36.4 C L 36.4 C L Heart Rate Heart Rate [ 66 68 Brachial] Respiratory 16 18 Rate Blood Pressure 102/57 L Blood Pressure [Left Brachial artery] Blood Pressure 98/49 L 102/57 L [Right Brachial artery] O2 Saturation 94 94 06/25/21 12:45 Temperature 36.9 C Heart Rate Heart Rate [ 75 Brachial] Respiratory 18 Rate Blood Pressure Blood Pressure [Left Brachial artery] Blood Pressure 160/86 H [Right Brachial artery] O2 Saturation 94 Oxygen O2 Source [Without Activity] Room air O2 Source Room air I&O (Last 24 Hrs): Intake and Output Totals x24h 06/23/21 06/24/21 06/25/21 23:59 23:59 23:59 Intake Total 3343.333 1520 740 Output Total 750 900 700 Balance 2593.333 620 40 General: Alert, Oriented x3, Cooperative, No acute distress HEENT: Atraumatic Neck: Supple Lymphatic: no adenopathy Neuro: Alert, Non Focal, Oriented Times 3 Cardiovascular: Regular rate, Normal S1, Normal S2 Respiratory: Chest non-tender, No respiratory distress Abdomen: Normal bowel sounds, Soft Extremities: Normal pulses - Results Results: Laboratory Results WBC 9.1 x10^3/uL (4.8-10.8) 06/25/21 04:30 RBC 4.13 10^6/uL (4.20-5.40) L 06/25/21 04:30 Hgb 12.1 g/dL (12.0-16.0) 06/25/21 04:30 Hct 38.7 % (37.0-47.0) 06/25/21 04:30 MCV 93.7 fL (81.0-99.0) 06/25/21 04:30 MCH 29.3 pg (27.0-31.0) 06/25/21 04:30 MCHC 31.3 g/dL (32.0-36.0) L 06/25/21 04:30 RDW 14.4 % (12.0-15.0) 06/25/21 04:30 Plt Count 204 10^3/uL (130-450) 06/25/21 04:30 MPV 10.4 fL (7.9-10.8) 06/25/21 04:30 Neut # (Auto) 5.3 10^3/uL (1.5-6.6) 06/25/21 04:30 Lymph # (Auto) 3.0 10^3/uL (1.5-3.5) 06/25/21 04:30 Ware # (Auto) 0.6 10^3/uL (0.0-1.0) 06/25/21 04:30 Eos # (Auto) 0.1 10^3/uL (0.0-0.7) 06/25/21 04:30 Baso # (Auto) 0.1 10^3/uL (0.0-0.1) 06/25/21 04:30 Absolute Nucleated RBC 0.00 x10^3/uL 06/25/21 04:30 Nucleated RBC % 0.0 /100WBC 06/25/21 04:30 Sodium 141 mmol/L (135-145) 06/25/21 04:30 Potassium 3.4 mmol/L (3.5-5.0) L 06/25/21 04:30 Chloride 104 mmol/L (101-111) 06/25/21 04:30 Carbon Dioxide 29 mmol/L (21-32) 06/25/21 04:30 Anion Gap 8.0 (6-13) 06/25/21 04:30 BUN 17 mg/dL (6-20) 06/25/21 04:30 Creatinine 0.5 mg/dL (0.4-1.0) 06/25/21 04:30 Estimated GFR (MDRD) 122 (>89) 06/25/21 04:30 Glucose 107 mg/dL (70-100) H 06/25/21 04:30 Lactic Acid 1.0 mmol/L (0.5-2.2) 06/23/21 09:41 Calcium 8.9 mg/dL (8.5-10.3) 06/25/21 04:30 Total Bilirubin 0.6 mg/dL (0.2-1.0) 06/22/21 16:52 AST 30 IU/L (10-42) 06/22/21 16:52 ALT 26 IU/L (10-60) 06/22/21 16:52 Alkaline Phosphatase 55 IU/L (42-121) 06/22/21 16:52 Total Protein 7.7 g/dL (6.7-8.2) 06/22/21 16:52 Albumin 4.6 g/dL (3.2-5.5) 06/22/21 16:52 Globulin 3.1 g/dL (2.1-4.2) 06/22/21 16:52 Albumin/Globulin Ratio 1.5 (1.0-2.2) 06/22/21 16:52 Lipase 32 U/L (22-51) 06/22/21 16:52 TSH 0.86 uIU/mL (0.34-5.60) 06/23/21 05:48 Urine Color YELLOW 06/23/21 13:00 Urine Clarity HAZY (CLEAR) 06/23/21 13:00 Urine pH 6.0 PH (5.0-7.5) 06/23/21 13:00 Ur Specific [place] 1.025 (1.002-1.030) 06/23/21 13:00 Urine Protein TRACE mg/dL (NEGATIVE) 06/23/21 13:00 Urine Glucose (UA) NEGATIVE mg/dL (NEGATIVE) 06/23/21 13:00 Urine Ketones TRACE mg/dL (NEGATIVE) 06/23/21 13:00 Urine Occult Blood NEGATIVE (NEGATIVE) 06/23/21 13:00 Urine Nitrite NEGATIVE (NEGATIVE) 06/23/21 13:00 Urine Bilirubin NEGATIVE (NEGATIVE) 06/23/21 13:00 Urine Urobilinogen 0.2 (NORMAL) E.U./dL (NORMAL) 06/23/21 13:00 Ur Leukocyte Esterase NEGATIVE (NEGATIVE) 06/23/21 13:00 Urine RBC 0-5 /HPF (0-5) 06/23/21 13:00 Urine WBC 0-3 /HPF (0-5) 06/23/21 13:00 Ur Squamous Epith Cells MANY Squamous (<= Few) H 06/23/21 13:00 Urine Bacteria Few /HPF (None Seen) 06/23/21 13:00 Urine Mucus Few Strands 06/23/21 13:00 Ur Microscopic Review INDICATED 06/22/21 17:06 Urine Culture Comments NOT INDICATED 06/23/21 13:00 Nasal Adenovirus (PCR) NOT DETECTED 06/22/21 17:00 Nasal B. parapertussis DNA (PCR) NOT DETECTED 06/22/21 17:00 Nasal Coronavir 229E PCR NOT DETECTED 06/22/21 17:00 Nasal Coronavir HKU1 PCR NOT DETECTED 06/22/21 17:00 Nasal Coronavir NL63 PCR NOT DETECTED 06/22/21 17:00 Nasal Coronavir OC43 PCR NOT DETECTED 06/22/21 17:00 Nasal Enterovir/Rhinovir PCR NOT DETECTED 06/22/21 17:00 Nasal Influenza B PCR NOT DETECTED 06/22/21 17:00 Nasal Influenza A PCR NOT DETECTED 06/22/21 17:00 Nasal Parainfluen 1 PCR NOT DETECTED 06/22/21 17:00 Nasal Parainfluen 2 PCR NOT DETECTED 06/22/21 17:00 Nasal Parainfluen 3 PCR NOT DETECTED 06/22/21 17:00 Nasal Parainfluen 4 PCR NOT DETECTED 06/22/21 17:00 Nasal RSV (PCR) NOT DETECTED 06/22/21 17:00 Nasal B.pertussis DNA PCR NOT DETECTED 06/22/21 17:00 Nasal C.pneumoniae (PCR) NOT DETECTED 06/22/21 17:00 Diego Human Metapneumo PCR NOT DETECTED 06/22/21 17:00 Nasal M.pneumoniae (PCR) NOT DETECTED 06/22/21 17:00 Nasal SARS-CoV-2 (PCR) NOT DETECTED 06/22/21 17:00 - Procedures Procedures: Procedures EXCISION OF SIGMOID COLON, ENDO (12/07/15) EXPLOR TEND SHEATH-HAND (08/15/12) RELEASE LEFT HAND TENDON, OPEN APPROACH (02/25/16) ABX Reporting Has patient been on IV antibiotics over the past 48 hours?: Yes Current Medications - Current Medications Current Medications: Active Medications Acetaminophen (Acetaminophen 325 Mg Tablet) 650 mg PO Q4HR PRN PRN Reason: Pain 1 to 4, or Fever Aspirin (Aspirin Chew 81 Mg Tablet) 81 mg PO Q48H [facility] Last Admin: 06/24/21 11:15 Dose: 81 mg Atorvastatin Calcium (Atorvastatin 40 Mg Tablet) 40 mg PO QPM [facility] Last Admin: 06/24/21 20:40 Dose: 40 mg Docusate Sodium (Docusate Sodium 250 Mg Capsule) 250 - 500 mg PO DAILY [facility] Last Admin: 06/25/21 09:04 Dose: 250 mg Enoxaparin Sodium (Enoxaparin 40 Mg/0.4 Ml Syringe) 40 mg SUBQ DAILY [facility] Last Admin: 06/25/21 09:05 Dose: 40 mg Hydromorphone HCl (Hydromorphone 0.5 Mg/0.5 Ml Syringe) 0.5 mg IVP Q3H PRN PRN Reason: Pain 8 to 10 Last Admin: 06/23/21 03:24 Dose: 0.5 mg Ceftriaxone Sodium 2 gm/ (Sodium Chloride) 100 mls @ 200 mls/hr IV DAILY [facility] Last Infusion: 06/25/21 10:30 Dose: Infused Lactated Ringer's (Lr) 1,000 mls @ 83.333 mls/hr IV .Q12H [facility] Stop: 06/26/21 13:59 Last Admin: 06/25/21 14:21 Dose: 83.333 mls/hr Labetalol HCl (Labetalol 20 Mg/4 Ml Syringe) 10 mg IVP Q6H PRN PRN Reason: PER PHYSICIAN ORDER Last Admin: 06/23/21 18:39 Dose: 10 mg Lorazepam (Lorazepam 2 Mg/Ml Vial) 1 mg IVP Q30M PRN; Protocol PRN Reason: CIWA >8 Metoprolol Tartrate (Metoprolol Tartrate 25 Mg Tablet) 12.5 mg PO BID [facility] Last Admin: 06/25/21 09:06 Dose: 12.5 mg Multi-Ingredient Mouthwash/Gargle (Gi Cocktail 120 Ml Bottle) 30 ml PO Q4H PRN PRN Reason: Abdominal Pain Last Admin: 06/25/21 09:17 Dose: 30 ml Ondansetron HCl (Ondansetron 4 Mg/2 Ml Vial) 4 mg IVP Q6HR PRN PRN Reason: Nausea / Vomiting Last Admin: 06/25/21 11:27 Dose: 4 mg Oxycodone HCl (Oxycodone 5 Mg Tablet) 5 mg PO Q4HR PRN PRN Reason: Pain 5 to 7 Last Admin: 06/25/21 11:27 Dose: 5 mg Pantoprazole Sodium (Pantoprazole 40 Mg Tablet) 40 mg PO QDAC [facility] Last Admin: 06/25/21 06:54 Dose: 40 mg Multivit/Folic Acid/Iron ( Vitamin Tablet) 1 tab PO DAILY [facility] Last Admin: 06/25/21 09:05 Dose: 1 tab Saccharomyces Boulardii (Saccharomyces Boulardii 250 Mg Capsule) 250 mg PO BI [facility] Last Admin: 06/25/21 09:03 Dose: 250 mg Senna (Senna 8.6 Mg Tablet) 8.6 - 17.2 mg PO DAILY [facility] Last Admin: 06/25/21 09:05 Dose: 8.6 mg Sertraline HCl (Sertraline 50 Mg Tablet) 100 mg PO DAILY [facility] Last Admin: 06/25/21 09:05 Dose: 100 mg Sodium Chloride (Sodium Chloride Flush 0.9% 10 Ml Syringe) 10 ml IVP PRN PRN PRN Reason: NEEDED PER PROVIDER ORDERS Sodium Chloride (Sodium Chloride Flush 0.9% 10 Ml Syringe) 10 ml IVP 0100,0900,1700 [facility] Last Admin: 06/25/21 09:06 Dose: 10 ml Thiamine HCl (Thiamine 100 Mg Tablet) 100 mg PO DAILY [facility] Last Admin: 06/25/21 09:06 Dose: 100 mg Aspirin 81 mg PO Q2D 12/04/15 Atorvastatin [Lipitor] 40 mg PO QPM 02/21/17 Sertraline [Zoloft] 100 mg PO DAILY 02/21/17 Losartan Potassium 2 tab PO DAILY 10/24/20
[2021-06-25] MEDS: LACTATED RINGERS 1,000 ML IV SCH (14:21)
[2021-06-25] MEDS ORDERED: hydrALAZINE INJ 20 MG/ML VIAL IVP PRN (16:05)
[2021-06-25] MEDS: lisinopriL 20 MG TABLET PO SCH (16:35)
[2021-06-25] MEDS: ATORVASTATIN 40 MG TABLET PO SCH (20:57)
[2021-06-26] MEDS: SODIUM CHLORIDE FLUSH 0.9% 10 ML SYRINGE IVP SCH ×2 (01:26→09:55)
[2021-06-26] MEDS: LACTATED RINGERS 1,000 ML IV SCH (01:27)
[2021-06-26] MEDS: PANTOPRAZOLE 40 MG TABLET PO SCH (04:49)
[2021-06-26 06:05] LABS: BASOPHILS % (AUTO) 0.3 %; EOSINOPHILS # (AUTO) 0.1 10^3/uL (0.0-0.7); EOSINOPHILS % (AUTO) 0.6 %; HCT - HEMATOCRIT 39.3 % (37.0-47.0); HGB - HEMOGLOBIN 12.5 g/dL (12.0-16.0); LYMPHOCYTES # (AUTO) 2.4 10^3/uL (1.5-3.5); LYMPHOCYTES % (AUTO) 23.9 %; MEAN CORPUSCULAR HEMOGLOBIN 29.3 pg (27.0-31.0); MEAN CORPUSCULAR HGB CONC 31.8 g/dL (32.0-36.0); MEAN CORPUSCULAR VOLUME 92.3 fL (81.0-99.0); MEAN PLATELET VOLUME 10.5 fL (7.9-10.8); MONOCYTES # (AUTO) 0.8 10^3/uL (0.0-1.0); MONOCYTES % (AUTO) 7.7 %; NEUTROPHILS # (AUTO) 6.6 10^3/uL (1.5-6.6); NEUTROPHILS % (AUTO) 67.3 %; PLT - PLATELET COUNT 212 10^3/uL (130-450); RED BLOOD COUNT 4.26 10^6/uL (4.20-5.40); RED CELL DISTRIBUTION WIDTH 14.2 % (12.0-15.0); WHITE BLOOD COUNT 9.9 x10^3/uL (4.8-10.8)
[2021-06-26 06:10] LABS: CREATININE 0.9 mg/dL (0.4-1.0); POTASSIUM 3.4 mmol/L (3.5-5.0)
[2021-06-26] MEDS: cefTRIAXone 2 GM in SODIUM CHLORIDE 0.9% MINIBAG 100 ML IV SCH (07:59)
[2021-06-26] MEDS: DOCUSATE SODIUM 250 MG CAPSULE PO SCH (08:00)
[2021-06-26] MEDS: ENOXAPARIN 40 MG/0.4 ML SYRINGE SUBQ SCH (08:00)
[2021-06-26] MEDS: SENNA 8.6 MG TABLET PO SCH (08:00)
[2021-06-26] MEDS: SERTRALINE 50 MG TABLET PO SCH (08:00)
[2021-06-26] MEDS: PRENATAL VITAMIN TABLET PO SCH (08:00)
[2021-06-26] MEDS: THIAMINE 100 MG TABLET PO SCH (08:01)
[2021-06-26] MEDS: lisinopriL 20 MG TABLET PO SCH (08:01)
[2021-06-26] MEDS: SACCHAROMYCES BOULARDII 250 MG CAPSULE PO SCH (08:01)
[2021-06-26] MEDS: ASPIRIN CHEW 81 MG TABLET PO SCH (08:01)
[2021-06-26] MEDS: METOPROLOL TARTRATE 25 MG TABLET PO SCH (08:04)
[2021-06-26] MEDS ORDERED: chlordiazePOXIDE 25 MG CAPSULE PO SCH (09:00)
[2021-06-26] MEDS ORDERED: SODIUM CHLORIDE 0.9% 500 ML IV ONE (10:49)
--- NOTE | 2021-06-26 11:55 | Discharge Plan ---
Discharge Plan Problem Reviewed?: Yes Disposition: Home, Self Care Condition: Fair Prescriptions: L. Acidophilus/L.bulgaricus [Lactobacillus Tablet] 1 each PO DAILY #5 tablet levoFLOXacin [Levofloxacin] 750 mg PO DAILY #5 tablet Diet: Regular Activity Restrictions: Activity as Tolerated Instruction Topics: UTI Health Concerns: You were hospitalized with abdominal pain, nausea and vomiting and we found you to have a complex urinary tract infection, pyelonephritis, affecting the kidneys, which was seen on CT imaging of the abdomen. You needed several days of IV antibiotics. You also needed IV fluids because of the vomiting, dehydration seen on your labs and low blood pressure. You are being sent home to take several more days of Levofloxacin (antibiotic) and a probiotic has been ordered as well. Also you may eat yogurt to help replenish good bacteria in your gut. All new prescriptions were electronically sent to your [facility] pharmacy in [place]. You need to still be well-hydrated by drinking alot of liquids for the next 2-3 days, using juices and broths especially, and decaf drinks are okay. Because of your low blood pressure, please DO NOT resume your blood pressure medication, Losartan for another 3 days. If you are dizzy, then stay home and rest. Do not drive a vehicle if you are dizzy. You should see your Primary Care Provider in the next 7 to 10 days for a hospital follow-up visit. Plan of Treatment: As above. Care Goals: Improvement in symptoms and stabilization are the goals. Assessment: The patient understands and is agreeable with the plan. Additional Instructions or Follow Up instructions: If you have new or worsening symptoms, call your PCP for advice or come to the Emergency Room. No Smoking: If you smoke, Please STOP! Call for help. Follow-up with: Rajani Kiser ARNP [Credentialed Staff Provider] -
--- NOTE | 2021-06-26 12:13 | DISCHARGE SUMMARY ---
Discharge Summary Admit Date: 06/22/21 Discharge Date: 06/26/21 Discharging Provider: Dr No Good Primary Care Provider: JENI Kiser Code Status: Attempt Resuscitation Condition at Discharge: Fair Discharge Disposition: 01 Home, Self Care - HPI History of Present Illness: From the admission H&P of Dr. Min Hartley: Patient is a 70-year-old white female who presented to the ED with complaint of abdominal pain located around the umbilicus. Symptoms started about 2 days ago. It is described as a nonradiating aching pain. She went to the urgent care clinic and was advised to come to the emergency department after it was noted she had a fever. In the ED work-up included a urine analysis which contained many bacteria. She also had a CT scan of the abdomen pelvis which showed perinephric fat stranding. Her CBC showed a white blood cell count of 18. She denied chest pain, dyspnea. She reported nausea but no vomiting and also reported fever and chills. As a result she was presented for admission for further treatment of pyelonephritis. - HOSPITAL COURSE Hospital Course: (1) Sepsis Patient had a fever, elevated WBC of 18.7, tachycardia, but normal Lactic Acid level. Her CT abdomen reveal bilateral perinephric fat stranding consistent with pyelonephritis. She had blood cultures done which remained negative. She received iv fluids, iv antibiotic and probiotics. Her WBC and symptoms slowly improved. (2) Pyelonephritis She was started on iv fluids and empiric iv Ceftriaxone. Her WBC slowly improved. Her blood cx remained neg and urine culture grew mixed cali. She was sent home to take several more days of empiric Levaquin plus probiotic. (3) Nausea & vomitinge She received iv fluids, antiemetics and clear liquids were advanced but she re- developed nausea and abdominal pain. The CT abdomen had shown no GI problem. She received protonix and GI cocktail. Then another advancing of diet was successful and she was discharged home and advised to continue bland food and slowly advance her diet. (4) Pre-renal azotemia Her BUN/creat were 28/0.6 at admission. She got iv fluids, labs were monitored. Her BUN/creat normalized. (5) Hx of Hypertension She required iv Labetolol once for HTN. Her usual BP meds were ordered here. (6) GERD We ordered Protonix and GI cocktail use. (7) Non-sustained SVT She had nonsustained SVT on nurse monitoring. She was asymptomatic and hemodynamically stable. She had labetolol IV given and we added Metoprolol po, but this was not prescribed at discharge. (8) Hx of alcohol abuse She reported she quit alcohol 9 months ago. Another provider felt she may have withdrawal and started Librium, a CIWA scale with prn iv Ativan, vitamins , and Thiamine were ordered while here. (9) Hyperlipidemia She was kept on atorvastatin (10) Depression with anxiety She was kept on sertraline - ALLERGIES Allergies/Adverse Reactions: Allergies Allergy/AdvReac Type Severity Reaction Status Date / Time morphine Allergy Intermediate Hives Verified 06/22/21 16:53 Penicillins Allergy Intermediate Rash Verified 06/22/21 16:53 hydrocodone [Hydrocodone] Allergy Mild Itching Verified 06/22/21 16:53 - MEDICATIONS Home Medications: Ambulatory Orders Medication Instructions Recorded Confirmed Aspirin 81 mg PO Q2D 12/04/15 06/23/21 Atorvastatin [Lipitor] 40 mg PO QPM 02/21/17 06/23/21 Sertraline [Zoloft] 100 mg PO DAILY 02/21/17 06/23/21 L. Acidophilus/L.bulgaricus 1 each PO DAILY #5 tablet 06/26/21 [Lactobacillus Tablet] levoFLOXacin [Levofloxacin] 750 mg PO DAILY #5 tablet 06/26/21 - PHYSICAL EXAM AT DISCHARGE General Appearance: positive: No acute distress, Alert, Other (Disheveled appearing) Eyes Bilateral: positive: Normal inspection, EOMI ENT: positive: ENT inspection nml, No signs of dehydration Neck: positive: Nml inspection, No JVD Respiratory: positive: No respiratory distress, Breath sounds nml Cardiovascular: positive: Regular rate & rhythm, No murmur Abdomen: positive: Non-tender, Nml bowel sounds, No distention Skin: positive: Warm, Dry Extremities: positive: Non-tender, No pedal edema Neurologic/Psychiatric: positive: Oriented x3 (non-focal) - LABS Result Diagrams: 06/26/21 04:58 06/26/21 04:58 - DIAGNOSTIC IMAGING Diagnostic Imaging Results: Final report reviewed - FOLLOW UP Follow Up: See PCP in 7-10 days for a hospital follow-up visit. - TIME SPENT Time Spent in Discharge (Minutes): 45
[2021-06-26 13:36] VITALS: BP 98/41
== END 2021-06-26 14:03 | disposition home or self-care (01) | DRG 872 ==
LOC: ED 16:41 → UNDOADMOB 22:03 → MS2 22:03 → INTOOBSV 22:03 → MS2 06-23 09:13 → OBSVTOIN 06-23 16:00
PROVIDERS: ADMIT Internal Medicine; ATTEND Internal Medicine
DX: A41.9 Sepsis, unspecified organism (principal); N12 Tubulo-interstitial nephritis, not specified as acute or chronic; I47.1 Supraventricular tachycardia; R11.2 Nausea with vomiting, unspecified; R79.89 Other specified abnormal findings of blood chemistry; F32.A Depression, unspecified; Z20.822 Contact with and (suspected) exposure to COVID-19; I10 Essential (primary) hypertension; K21.9 Gastro-esophageal reflux disease without esophagitis; E78.5 Hyperlipidemia, unspecified; F41.8 Other specified anxiety disorders; F10.11 Alcohol abuse, in remission; E86.0 Dehydration; Z87.891 Personal history of nicotine dependence
CPT/HCPCS: 36415; 71045; 74177; 80048; 80053; 81001; 83605; 83690; 84443; 85025; 87040; 87086; 87633; 96365; 96366; 96372; 96375; 96376; 99284; 99285; A9270; G0378; J1170; J1650; J7120; Q9967; 81003

== ENCOUNTER 2022-04-26 07:46 | Outpatient (CLI) | payer MEDICARE ==
[2022-04-26 14:32] LABS: BASOPHILS # (AUTO) 0.1 10^3/uL (0.0-0.1); BASOPHILS % (AUTO) 0.6 %; EOSINOPHILS # (AUTO) 0.3 10^3/uL (0.0-0.7); EOSINOPHILS % (AUTO) 2.5 %; HCT - HEMATOCRIT 40.4 % (37.0-47.0); HGB - HEMOGLOBIN 12.3 g/dL (12.0-16.0); LYMPHOCYTES # (AUTO) 1.9 10^3/uL (1.5-3.5); LYMPHOCYTES % (AUTO) 18.5 %; MEAN CORPUSCULAR HEMOGLOBIN 28.8 pg (27.0-31.0); MEAN CORPUSCULAR HGB CONC 30.4 g/dL (32.0-36.0); MEAN CORPUSCULAR VOLUME 94.6 fL (81.0-99.0); MEAN PLATELET VOLUME 9.9 fL (7.9-10.8); MONOCYTES # (AUTO) 0.6 10^3/uL (0.0-1.0); MONOCYTES % (AUTO) 5.7 %; NEUTROPHILS # (AUTO) 7.3 10^3/uL (1.5-6.6); NEUTROPHILS % (AUTO) 71.5 %; PLT - PLATELET COUNT 301 10^3/uL (130-450); RED BLOOD COUNT 4.27 10^6/uL (4.20-5.40); RED CELL DISTRIBUTION WIDTH 14.6 % (12.0-15.0); WHITE BLOOD COUNT 10.2 x10^3/uL (4.8-10.8)
[2022-04-26 14:41] LABS: ESTIMATED AVERAGE GLUCOSE 111 mg/dL (70-100); HEMOGLOBIN A1c% 5.5 % (4.27-6.07)
[2022-04-26 14:47] LABS: THYROID STIMULATING HORMONE 1.55 uIU/mL (0.34-5.60)
[2022-04-26 14:49] LABS: ALBUMIN 3.4 g/dL (3.2-5.5); ALBUMIN/GLOBULIN RATIO 0.9 (1.0-2.2); ALKALINE PHOSPHATASE 77 IU/L (42-121); ALT ALANINE AMINOTRANSFERASE 23 IU/L (10-60); AST ASPARTATE AMINOTRANSFERASE 16 IU/L (10-42); BILIRUBIN,TOTAL 0.5 mg/dL (0.2-1.0); BUN - BLOOD UREA NITROGEN 16 mg/dL (6-20); CALCIUM 8.8 mg/dL (8.5-10.3); CARBON DIOXIDE - CO2 27 mmol/L (21-32); CHLORIDE 108 mmol/L (101-111); CHOL/HDL RATIO 3.4 (<4.4); CHOLESTEROL 142 mg/dL; CREATININE 0.4 mg/dL (0.4-1.0); GFR - MDRD 157 (>89); GLUCOSE 144 mg/dL (70-100); HDL CHOLESTEROL 42 mg/dL; LDL CHOLESTEROL,CALCULATED 75 mg/dL; LDL/HDL RATIO 1.8 (<4.4); POTASSIUM 3.7 mmol/L (3.5-5.0); SODIUM 145 mmol/L (135-145); TOTAL PROTEIN 7.2 g/dL (6.7-8.2); TRIGLYCERIDES 124 mg/dL; VLDL CHOLESTEROL 25 mg/dL
== END 2022-04-26 07:47 | disposition home or self-care (01) ==
LOC: LAB.S 07:46
PROVIDERS: ATTEND Registered Nurse
DX: I10 Essential (primary) hypertension (principal); R73.03 Prediabetes; E78.5 Hyperlipidemia, unspecified
CPT/HCPCS: 36415; 80053; 80061; 83036; 83721; 84443; 85025

== ENCOUNTER 2022-05-18 10:18 | Outpatient (CLI) | payer MEDICARE ==
--- NOTE | 2022-05-19 08:49 | Mammography Report ---
BILATERAL DIGITAL SCREENING MAMMOGRAM 3D/2D: 05/18/2022 CLINICAL: Routine screening. Comparison is made to exams dated: 09/24/2019 mammogram, 06/14/2018 mammogram, and 10/24/2013 mammogram - [facility]. There are scattered areas of fibroglandular density in both breasts (category b / 25%-50% glandular t issue). No significant masses, calcifications, or other findings are seen in either breast. There has been no significant interval change. IMPRESSION: NEGATIVE There is no mammographic evidence of malignancy. A 1 year screening mammogram is recommended. Based on the Tyrer Cuzick model (a risk assessment model) the patients lifetime risk is 5.4% and her 10 year risk is 3.7%. According to the ACR, ACS, and NCCN guidelines, an annual breast MRI exam isela g with mammogram is recommended if the patients lifetime risk is 20% or greater. This exam was interpreted at Station ID: [id number]. NOTE: For mammograms, a report in lay terms will be sent to the patient. Approximately 15% of breast malignancies will not be visualized mammographically. In the management of a palpable breast mass, a negative mammogram must not discourage biopsy of a clinically suspicious lesion. Electronically Signed By: Raj payne/joaquin:05/18/2022 11:46:06 letter sent: No_Letter ACR BI-RADS Category 1: Negative 3341F PARENCHYMAL PATTERN: (A) - The breast(s) demonstrate(s) scattered fibroglandular densities. BI-RADS CATEGORY: (1) - 1 Mammogram [id number] 1 year screening LATERALITY: (B)
== END 2022-05-18 10:19 | disposition home or self-care (01) ==
LOC: DI.S 10:18
PROVIDERS: ATTEND Registered Nurse
DX: Z12.31 Encounter for screening mammogram for malignant neoplasm of breast (principal)

== ENCOUNTER 2023-05-01 18:58 | Emergency (ER) | payer MEDICARE ==
[2023-05-01 19:28] LABS: BASOPHILS % (AUTO) 0.2 %; HCT - HEMATOCRIT 47.5 % (37.0-47.0); HGB - HEMOGLOBIN 14.8 g/dL (12.0-16.0); LYMPHOCYTES % (AUTO) 10.2 %; MEAN CORPUSCULAR HEMOGLOBIN 28.7 pg (27.0-31.0); MEAN CORPUSCULAR HGB CONC 31.2 g/dL (32.0-36.0); MEAN CORPUSCULAR VOLUME 92.2 fL (81.0-99.0); MONOCYTES # (AUTO) 0.2 10^3/uL (0.0-1.0); MONOCYTES % (AUTO) 1.7 %; NEUTROPHILS # (AUTO) 8.9 10^3/uL (1.5-6.6); NEUTROPHILS % (AUTO) 87.4 %; PLT - PLATELET COUNT 278 10^3/uL (130-450); RED BLOOD COUNT 5.15 10^6/uL (4.20-5.40); RED CELL DISTRIBUTION WIDTH 14.7 % (12.0-15.0); WHITE BLOOD COUNT 10.2 x10^3/uL (4.8-10.8)
[2023-05-01 19:58] LABS: ALBUMIN 4.8 g/dL (3.2-5.5); ALBUMIN/GLOBULIN RATIO 1.5 (1.0-2.2); ALKALINE PHOSPHATASE 85 IU/L (42-121); ALT ALANINE AMINOTRANSFERASE 17 IU/L (10-60); AST ASPARTATE AMINOTRANSFERASE 14 IU/L (10-42); BILIRUBIN,TOTAL 0.7 mg/dL (0.2-1.0); BUN - BLOOD UREA NITROGEN 16 mg/dL (6-20); CALCIUM 10.2 mg/dL (8.5-10.3); CARBON DIOXIDE - CO2 24 mmol/L (21-32); CHLORIDE 105 mmol/L (101-111); CREATININE 0.4 mg/dL (0.6-1.3); GFR - MDRD 157 (>89); GLUCOSE 159 mg/dL (74-104); POTASSIUM 3.6 mmol/L (3.5-4.5); SODIUM 142 mmol/L (135-145); TOTAL PROTEIN 8.1 g/dL (6.4-8.9)
[2023-05-01 20:06] LABS: LIPASE < 10 U/L (11-82)
[2023-05-01] MEDS ORDERED: iohexoL-300 100 ML VIAL ONE (21:15)
--- NOTE | 2023-05-01 21:26 | ED Physician Documentation ---
PD HPI ABD PAIN - Stated complaint Stated Complaint: ABD PX - Chief complaint Chief Complaint: Abd Pain - History obtained from History obtained from: Patient - Additional information Additional information: Patient is a 72-year-old female presenting for evaluation of lower abdominal pain since this morning that she describes as sharp. She has associated nausea and vomiting. She reports having a normal bowel movement this morning. No blood in emesis or stools. No fever, chest pain, shortness of air. Nothing makes her symptoms better or worse. Denies prior history of abdominal surgeries.Denies dysuria or hematuria. Review of Systems Constitutional: denies: Fever Cardiac: denies: Chest pain / pressure Respiratory: denies: Dyspnea GI: reports: Abdominal Pain, Nausea, Vomiting. denies: Diarrhea : denies: Dysuria PD PAST MEDICAL HISTORY - Past Medical History Past Medical History: Yes Cardiovascular: Hypertension, High cholesterol Respiratory: None Neuro: CVA GI: None [employer]: None : Frequency Psych: Depression Musculoskeletal: Osteoarthritis - Past Surgical History Past Surgical History: Yes General: Appendectomy Ortho: Carpal Tunnel surgery - Present Medications Home Medications: Ambulatory Orders Medication Instructions Recorded Confirmed Aspirin 81 mg PO Q2D 12/04/15 06/23/21 Atorvastatin [Lipitor] 40 mg PO QPM 02/21/17 06/23/21 Sertraline [Zoloft] 100 mg PO DAILY 02/21/17 06/23/21 L. Acidophilus/L.bulgaricus 1 each PO DAILY #5 tablet 06/26/21 [Lactobacillus Tablet] levoFLOXacin [Levofloxacin] 750 mg PO DAILY #5 tablet 06/26/21 Ciprofloxacin HCl [Cipro] 500 mg PO BID #14 tablet 05/01/23 Ondansetron Odt [Zofran] 4 mg TL Q6H PRN #10 tablet 05/01/23 Oxycodone HCl/Acetaminophen 1 each PO Q6H PRN #10 tablet 05/01/23 [Percocet 5-325 mg Tablet] metroNIDAZOLE [Flagyl] 500 mg PO TID 7 Days #21 tablet 05/01/23 - Allergies Allergies/Adverse Reactions: Allergies Allergy/AdvReac Type Severity Reaction Status Date / Time morphine Allergy Intermediate Hives Verified 05/01/23 19:02 Penicillins Allergy Intermediate Rash Verified 05/01/23 19:02 hydrocodone [Hydrocodone] Allergy Mild Itching Verified 05/01/23 19:02 - Social History Does the pt smoke?: No Smoking Status: Never smoker Does the pt drink ETOH?: No Does the pt have substance abuse?: No - Immunizations Immunizations are current?: Yes - POLST Patient has POLST: No POLST Status: Full Code PD ED PE NORMAL - General General: Alert and oriented X 3, No acute distress, Well developed/nourished - HEENT HEENT: Atraumatic, Moist mucous membranes, Pharynx benign - Neck Neck: Supple, no meningeal sign - Cardiac Cardiac: RRR, Strong equal pulses - Respiratory Respiratory: No respiratory distress, Clear bilaterally - Abdomen Abdomen: Normal bowel sounds, Soft, Non distended, Other (Periumbilical and lower abdominal tenderness, no rebound, no guarding, no palpable mass) - Derm Derm: Warm and dry - Neuro Neuro: Normal speech Results - Vitals Vitals: Vital Signs - 24 hr 05/01/23 05/01/23 05/01/23 19:03 22:36 23:19 Temperature 36.8 C Heart Rate 85 88 72 Respiratory 20 14 13 Rate Blood Pressure 180/88 H 187/93 H 102/79 O2 Saturation 97 92 96 Oxygen O2 Source [Without Activity] Room air O2 Source Room air - Labs Labs: Laboratory Tests 05/01/23 05/01/23 05/01/23 19:19 19:19 21:35 WBC 10.2 RBC 5.15 Hgb 14.8 Hct 47.5 H MCV 92.2 MCH 28.7 MCHC 31.2 L RDW 14.7 Plt Count 278 MPV 10.0 Neut # (Auto) 8.9 H Lymph # (Auto) 1.0 L [place] # (Auto) 0.2 Eos # (Auto) 0.0 Baso # (Auto) 0.0 Absolute Nucleated RBC 0.00 Nucleated RBC % 0.0 Sodium 142 Potassium 3.6 Chloride 105 Carbon Dioxide 24 Anion Gap 13.0 BUN 16 Creatinine 0.4 L Estimated GFR (MDRD) 157 Glucose 159 H Calcium 10.2 Total Bilirubin 0.7 AST 14 ALT 17 Alkaline Phosphatase 85 Total Protein 8.1 Albumin 4.8 Globulin 3.3 Albumin/Globulin Ratio 1.5 Lipase < 10 L Urine Color YELLOW Urine Clarity CLEAR Urine pH 6.0 Ur Specific [place] >=1.030 H Urine Protein 100 H Urine Glucose (UA) NEGATIVE Urine Ketones 40 H Urine Occult Blood NEGATIVE Urine Nitrite NEGATIVE Urine Bilirubin SMALL H Urine Urobilinogen 0.2 (NORMAL) Ur Leukocyte Esterase NEGATIVE Urine RBC 0-5 Urine WBC 0-3 Ur Squamous Epith Cells FEW Squamous Urine Bacteria Rare Urine Mucus Few Strands Ur Microscopic Review INDICATED Urine Culture Comments NOT INDICATED PD Medical Decision Making - ED course Complexity details: reviewed results, re-evaluated patient, d/w patient ED course: Patient with lower abdominal pain, left greater than right quadrant starting today with associated nausea and vomiting. Vital signs are stable. CBC, chemistries, urinalysis were obtained and reviewed. Patient had improvement in symptoms with IV fluids, IV Dilaudid (allergy to morphine) and Zofran. CT scan was obtained which shows findings of sigmoid colitis. Does have diverticulosis also in this area - Although not clearly diverticulitis. However will opt for treatment with antibiotics, pain medications. Patient reports she may be overdue for a colonoscopy. Patient instructed on need for close follow-up with primary care doctor as well as encouraged to schedule a colonoscopy. Patient aware of return precautions for any worsening symptoms. Departure - Departure Disposition: Home, Self Care Clinical Impression: Colitis Condition: Stable Instructions: ED Diverticulitis Follow-Up: [facility] [Provider Group] Prescriptions: Ciprofloxacin HCl [Cipro] 500 mg PO BID #14 tablet metroNIDAZOLE [Flagyl] 500 mg PO TID 7 Days #21 tablet Oxycodone HCl/Acetaminophen [Percocet 5-325 mg Tablet] 1 each PO Q6H PRN #10 tablet PRN Reason: pain Ondansetron Odt [Zofran] 4 mg TL Q6H PRN #10 tablet PRN Reason: Nausea / Vomiting Comments: You have inflammation in the last portion of your colon called the sigmoid colon. I am sending prescriptions To the would be community pharmacy including narcotic pain medication, nausea medicine and 2 antibiotics to help with the inflammation given your penicillin allergy. I would recommend close follow-up with your primary care doctor I would also consider follow-up with the general surgery clinic as you may be overdue for colonoscopy. Return to the emergency department with any worsening symptoms. Forms: PCP List Discharge Date/Time: 05/01/23 23:26
[2023-05-01] MEDS: ONDANSETRON 4 MG/2 ML VIAL IVP STA (21:49)
[2023-05-01 21:50] LABS: BILIRUBIN,URINE SMALL (NEGATIVE); GLUCOSE, URINE (UA) NEGATIVE (NEGATIVE); KETONES,URINE (UA) 40 mg/dL (NEGATIVE); LEUKOCYTE ESTERASE, URINE NEGATIVE (NEGATIVE); NITRITE,URINE NEGATIVE (NEGATIVE); OCCULT BLOOD,URINE NEGATIVE (NEGATIVE); PROTEIN,URINE 100 mg/dL (NEGATIVE); UROBILINOGEN,URINE 0.2 (NORMAL) E.U./dL (NORMAL)
[2023-05-01] MEDS: HYDROmorphone 1 MG/ML CARPUJECT IVP STA (21:51)
[2023-05-01] MEDS: SODIUM CHLORIDE 0.9% 1,000 ML IV STA (21:52)
[2023-05-01 22:08] LABS: BACTERIA,URINE Rare /HPF (None Seen); CLARITY,URINE CLEAR (CLEAR); MUCUS,URINE Few Strands; RBC,URINE 0-5 /HPF (0-5); SQUAMOUS EPITHELIAL CELL,UR FEW Squamous (<= Few); WBC,URINE 0-3 /HPF (0-5)
[2023-05-01] MEDS: iohexoL-300 100 ML VIAL IVP ONE (22:15)
--- NOTE | 2023-05-01 22:34 | CT Report ---
PROCEDURE: Abdomen/Pelvis W INDICATIONS: lower abd pain/vomiting CONTRAST: 100mls Omni 300 TECHNIQUE: After the administration of intravenous contrast, a CT scan of the abdomen and pelvis was performed. Images were recorded and evaluated at appropriate window settings. Reformats: coronal and sagittal. F or radiation dose reduction, the following was used: automated exposure control, adjustment of mA and /or kV according to patient size. COMPARISON: 05/23/2021 FINDINGS: Image quality: Diagnostic. Lower chest: Unremarkable. Liver: Hepatic steatosis. Gallbladder and biliary tree: No radiopaque stones or wall thickening. No biliary dilation. Spleen: No splenomegaly. Pancreas: No pancreatic ductal dilation. Adrenals: No adrenal nodule. Kidneys and ureters: No hydronephrosis. No renal cystic lesion which requires follow up. No solid mas s. Stomach, bowel and peritoneum: No bowel distension. No pathologic free fluid. Wall thickening of the sigmoid colon, without associated inflamed diverticulum. Lymph nodes: No central or retroperitoneal adenopathy. Vessels: No infrarenal aortic aneurysm. PELVIS Reproductive organs: Unremarkable. Bladder: No abnormal wall thickening, accounting for underdistention. Pelvic lymph nodes: No pelvic adenopathy by size criteria. Bones: No aggressive osseous abnormality. Other: No significant ventral or inguinal hernia. IMPRESSION: Suspected sigmoid colitis. No inflamed diverticulum to suggest diverticulitis in the setting of wall thickening. No evidence of perforation. Reviewed by: Peyman Mehta MD on 05/01/2023 10:33 PM PDT Approved by: Peyman Mehta MD on 05/01/2023 10:33 PM PDT Station ID: [id number]
[2023-05-01] MEDS: ONDANSETRON ODT 4 MG Prepack 2 TL PRN (23:11)
[2023-05-01] MEDS: metroNIDAZOLE 250 MG TABLET PO STA (23:11)
[2023-05-01] MEDS: CIPROFLOXACIN 250 MG TABLET PO STA (23:11)
[2023-05-01] MEDS: oxyCODONE/ACET 5/325 Prepack 4 PO STA (23:12)
[2023-05-01 23:21] VITALS: BP 102/79; O2SAT 96
== END 2023-05-01 23:26 | disposition home or self-care (01) ==
LOC: ED 18:58
DX: K52.9 Noninfective gastroenteritis and colitis, unspecified (principal); I10 Essential (primary) hypertension; E78.00 Pure hypercholesterolemia, unspecified; Z79.82 Long term (current) use of aspirin; Z79.899 Other long term (current) drug therapy
CPT/HCPCS: 36415; 74177; 80053; 81001; 83690; 85025; 96374; 96375; 99283; 99284; A9270; J1170; Q9967; 81003; 87086